=== PATIENT | male | born 1970 | race African-American/Black ===

== ENCOUNTER 2016-09-08 02:41 | Inpatient (IN) | payer OTHER ==
[~2016-09-08] VITALS: Ht 188 cm; Wt 141.1 kg
--- NOTE | ~2016-09-08 | EKG ---
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 : 1970 Requested By: Christy Hall Order Number: [id number] MD: Darinel Ayala Measurements Intervals Gordon Rate: 68 P: 41 DC: 162 QRS: 6 QRSD: 108 T: 115 QT: 437 QTc: 465 Interpretive Statements Sinus rhythm Nonspecific T abnormalities, lateral leads Compared to ECG 10/14/2015 23:19:06 right ventricular conduction delay no longer present nonspecific change in the T wave abnormality Electronically Signed On 09-09-2016 7:51:45 CDT by Darinel Ayala [email or web address] <ELECTRONICALLY SIGNED> By: Darinel Ayala MD, [facility] 09/09/16 0751 [phone] Darinel Ayala MD, [facility] /EPI
--- NOTE | ~2016-09-08 | HC ---
[facility] [place] [address] CONSULTATION Name: COLIN GARZA II Room #: 307-P ADM IN M.R.#: [id number] Admission: 09/08/16 Attend Phys: Marisa Crawley MD Discharge: Date of : 70 Report #: [id number] THIS REPORT FOR: //name// CC: Fer Crawley DATE OF SERVICE: 09/08/2016 REASON FOR CONSULTATION: Chronic kidney disease, hypertension, and volume overload. HISTORY OF PRESENT ILLNESS: This is a 46-year-old male who I have seen previously in the hospital and he has also been seen by a couple of my colleagues. He has longstanding diabetic nephropathy and hypertension, has chronic kidney disease stage 4, gradually progressing to stage 5. He also has hypertension and requires multiple medications. He has been having problems with edema. When I had previously seen him, he also had problems with bladder dysfunction with difficulty emptying his bladder all the way and that was creating some additional problems. He was just in the hospital about 6 weeks ago with some mild pancreatitis that eventually resolved. He continued treatment for his other medical problems including his chronic kidney disease. He tells me he has been taking his medications. He thinks his blood pressure has been high. His lower extremity edema has been worse. His creatinine level on today check is 3.8, which is not far off from his baseline. He says his blood pressure has been up, he began having more problems breathing and overnight had severe dyspnea, wheezing, and what he calls an asthma attack. It also sounds partly like paroxysmal nocturnal dyspnea. He is much better from that standpoint now and is resting comfortably. He remains on some oxygen. In addition, I asked him about his voiding and he has sounds like still some urinary retention and hesitancy. He says he does not remember how long he has been off his Flomax. PAST MEDICAL HISTORY: Longstanding diabetes mellitus and hypertension. This has led to progressive diabetic nephropathy and severe chronic kidney disease. I would note that with this CKD he is scheduled for a placement of a fistula into his left arm for eventual dialysis needs. That is to be done next week. With the diabetes he has peripheral neuropathy, retinopathy and obviously the nephropathy. He has chronic and recurring edema. He has some asthma. He has had a prior cholecystectomy and prior knee surgery. He has also had microdiskectomy on his back. HOME MEDICATIONS: These are not accurately listed, on the computer include losartan 100 mg daily and this is the one that is missing from his report, carvedilol 25 mg b.i.d., clonidine 0.2 mg b.i.d., torsemide 40 mg b.i.d. and this is also different than what is listed, isosorbide mononitrate, MiraLax, oxycodone for pain, gabapentin 300 mg t.i.d., Flexeril 10 mg b.i.d., aspirin [address] [address] CONSULTATION Name: COLIN GARZA II Room #: 307-P [facility] .R.#: [id number] Admission: 09/08/16 Attend Phys: Marisa Crawley MD Discharge: Date of : 70 Report #: [id number] daily, Ventolin inhaler. ALLERGIES: PENICILLIN. FAMILY HISTORY: Negative for any renal disease. SOCIAL HISTORY: The patient lives in [place], [place]. He is . He is medically disabled. REVIEW OF SYSTEMS: He says he has been trying to follow his diet. He is using the DASH not adding any salt in spite of this his edema has been increasing. He had the increasing dyspnea as noted above. No chest pain, although his chest was feeling full, mild cough, no sputum, no fevers or chills. He has had intermittent difficulty voiding urine, feels like he has some retention, still has intermittent abdominal discomfort, but not as severe as it was during his last hospitalization, no diarrhea, no visual or hearing change. PHYSICAL EXAMINATION: GENERAL: This is a very large gentleman, awake, alert and in no acute distress at this time. VITAL SIGNS: Blood pressure on presentation 233/115 down to 182/93 on most recent check, heart rate 67, temperature 97.4, respiratory rate 14. HEENT: Shows pupils are equal and reactive. Sclerae nonicteric. Oral mucosa is negative. NECK: Shows no JVD. CHEST: Shows mildly decreased breath sounds, diffusely. No wheezes or rales. CARDIOVASCULAR: Heart has a regular rate and rhythm. ABDOMEN: Obese, has active bowel sounds, soft, nontender. EXTREMITIES: Show 2+ bilateral lower extremity edema, no upper extremity edema, although it does appear mildly diffusely edematous. LABORATORY DATA: Sodium 134, potassium 4.8, chloride 102, bicarbonate 24, BUN 46, creatinine 3.8, glucose 454, calcium 8.2. White count 11.6, hemoglobin 9.2, hematocrit 28.8, platelets 12,000. ASSESSMENT: 1. Chronic kidney disease stage 4, borderline stage 5. Blood pressure is still not controlled. Volume is still a problem. He has not uremic. He is not on all of his usual medications and we need to get him on those. I had a long discussion with the patient, he seems to understand this. He is asking about dialysis and I have told him that would like to maintain his kidney function as long as possible and avoid dialysis until the time dictates that it is necessary. He is due for fistula placement in his arm next week. We want to get him to that appointment, should allow that in place. Again, he does not need dialysis at this time. 2. Hypertension, not adequately controlled. We need to get him back on his [facility] [address] [place] [address] CONSULTATION Name: COLIN GARZA II Room #: 307-P [facility] ..#: [id number] Admission: 09/08/16 Attend Phys: Marisa Crawley MD Discharge: Date of : 70 Report #: [id number] losartan. He will continue the carvedilol. He also needs more in the way of diuretics. 3. Volume overload with peripheral edema. I will put him on IV Lasix 80 mg q. 6 hours and then tomorrow morning restart his torsemide at 40 mg b.i.d. 4. Urinary retention. We will get him back on some tamsulosin. I will then check a bladder scan to see if he is emptying his bladder fully on a regular basis. 5. Longstanding diabetes mellitus, labile sugars. 6. Recent problems with pancreatitis symptomatically improved. 7. Anemia, mild secondary to his chronic kidney disease. PLAN: 1. Resume his losartan 100 mg daily, continue carvedilol. 2. Convert to IV Lasix q. 6 hours for 3 doses, then put him on his usual dose of oral torsemide 40 mg b.i.d. 3. Tight sodium restriction. 4. Put him back on his tamsulosin for bladder emptying. 5. Bladder scan to make sure he is passing urine adequately and not retaining. 6. Repeat labs in the morning. 7. We will follow along closely in the care of this patient. <ELECTRONICALLY SIGNED> By: Enrique Bateman MD 09/13/16 0726 1234 [id number] Enrique Bateman MD /nt
[~2016-09-08 02:41] MED LIST: ACCUNEB SO1.25 MG/1 INH; ALBUTEROL SOLUTION INH; ALDACTONE25 MG PO; ALDACTONE50 MG PO; ASPIR 8181 MG PO; ASPIRIN81 M2 PO; ATORVASTATIN CA40 MG PO; BIOTIN5 MG PO; BREO ELLIPTA 11 EACH IH; CARVEDILOL12.5 MG PO; CARVEDILOL25 MG PO; CATAPRES0.2 MG PO; CEPHALEXIN 500500 M3 PO; COLACE100 MG PO; COREG25 MG PO; COREG6.25 MG; COZAAR 25 MG TA25 M1; COZAAR100 MG PO; CYCLOBENZAPRINE10 MG PO; CYCLOGYL5 M1 OP; DEMADEX20 MG PO; DEXAMETHASONE 44 M1 PO; FLEXERIL; FLEXERIL PO; FLOMAX0.4 MG PO; GABAPENTIN 100100 MG; GABAPENTIN 100100 MG PO; HUMALOG100 UNIT/1 SUBQ; HYDROCODONE-APA1 TA1; HYTRIN 5 M5 MG/1 CAP PO; IMDUR 30 MG TAB30 M1 PO; IMDUR 60 MG TAB60 M1 PO; LASIX 40 MG TAB40 M2; LEVEMIR SUBQ; LEVEMIR100 UNIT/1 SUBQ; LOPRESSOR 12.12.5 MG PO; LOPRESSOR50 PO; LOSARTAN POTASS25 MG PO; LUTEIN6 MG PO; METHYLPREDNISOLO4 MG; MIRALAX17 GM PO; NEURONTIN 300300 M1 PO; NEURONTIN 300M300 M2 PO; NORVASC5 M1; OMNIPRED5 ML OP; PAXIL10 MG; PERCOCET 10-321 EACH PO; PERCOCET 5-3251 EACH PO; PERCOCET 7.5-31 EACH PO; PRAVACHOL40 MG PO; PROAIR HFA8.5 GM INH; SENNA8.6 M1 PO; SINGULAIR 10 MG10 M1 PO; SYMBICORT160 MCG/4. INH; TORSEMIDE20 MG PO; TORVASTATIN PO; TYLENOL325 MG PO; VALIUM5 MG PO; VENTOLIN HFA 1818 GM INH; ZANTAC 150MG T150 MG PO
[2016-09-08 05:45] VITALS: BP 202/95
[2016-09-08 06:33] LABS: HEMATOCRIT 28.8 % (42.0-52.0); HEMOGLOBIN 9.2 gm/dL (14.0-18.0); MCH 28.7 pg (26.0-34.0); MCHC 31.9 g/dL (28.0-37.0); MCV 89.9 fL (80.0-100.0); RBC 3.21 mil/uL (4.50-6.00); RDW 13.9 % (10.5-14.5); WBC 11.6 thou/uL (4.0-11.0)
[2016-09-08 06:42] LABS: CALCIUM 8.2 mg/dL (8.5-10.1); CREATININE 3.8 mg/dL (0.7-1.3); POTASSIUM 4.8 mmol/L (3.5-5.1)
[2016-09-08 07:48] VITALS: BP 233/115
[2016-09-08 09:35] LABS: NT-PRO BRAIN NAT PEPTIDE 1613 pg/mL (<300)
[2016-09-08 11:15] VITALS: BP 182/93
[2016-09-08 15:45] VITALS: BP 163/77
[2016-09-08 20:00] VITALS: BP 165/91
[2016-09-09 00:06] LABS: GLYCOHEMOGLOBIN (HGB A1C) 8.5 % (4.8-5.6)
[2016-09-09 04:00] VITALS: BP 189/100
[2016-09-09 05:27] LABS: HEMATOCRIT 26.7 % (42.0-52.0); HEMOGLOBIN 8.5 gm/dL (14.0-18.0); MCH 28.6 pg (26.0-34.0); MCHC 31.7 g/dL (28.0-37.0); MCV 90.4 fL (80.0-100.0); PLATELET COUNT 184 thou/uL (150-400); RBC 2.96 mil/uL (4.50-6.00); RDW 14.4 % (10.5-14.5); WBC 18.7 thou/uL (4.0-11.0)
[2016-09-09 05:30] LABS: MANUAL DIFF YES
[2016-09-09 05:41] LABS: ALBUMIN 2.6 g/dL (3.4-5.0); CALCIUM 7.7 mg/dL (8.5-10.1); CREATININE 4.4 mg/dL (0.7-1.3); MAGNESIUM 1.6 mg/dL (1.8-2.4); POTASSIUM 4.6 mmol/L (3.5-5.1); TOTAL BILIRUBIN 0.2 mg/dL (<0.1-1.0); TOTAL PROTEIN 6.7 g/dL (6.4-8.2)
[2016-09-09 07:36] VITALS: BP 180/122
[2016-09-09 07:59] LABS: ABSOLUTE NEUTROPHILS 17.2 thou/uL (1.4-8.2); ANISOCYTOSIS 1+; POLYCHROMASIA OCCASIONAL; TOTAL CELL COUNT 100
[2016-09-09 11:01] LABS: URINE BILIRUBIN NEGATIVE (Negative); URINE BLOOD 2+ (Negative); URINE COLOR YELLOW; URINE GLUCOSE-RANDOM* 1+ (Negative); URINE KETONES NEGATIVE (Negative); URINE LEUKOCYTES-REFLEX NEGATIVE (Negative); URINE PROTEIN (DIPSTICK) 3+ (Negative); URINE UROBILINOGEN 0.2 E.U./dl (0.2-1.0)
[2016-09-09 11:18] LABS: CASTS None Seen /LPF (None Seen); CRYSTALS None Seen /LPF (None Seen); SQUAMOUS None Seen /LPF (0-3); URINE RBC 3-10 Few /HPF (0-2); URINE WBC-REFLEX 0-5 Rare /HPF (0-5)
[2016-09-09 12:11] VITALS: BP 183/87
[2016-09-09 15:23] VITALS: BP 156/81
[2016-09-09 15:56] VITALS: BP 156/81
[2016-09-09 20:00] VITALS: BP 191/101
[2016-09-10] VITALS: BP 145/74
[2016-09-10 04:00] VITALS: BP 185/92
[2016-09-10 05:28] LABS: HEMATOCRIT 27.7 % (42.0-52.0); HEMOGLOBIN 8.8 gm/dL (14.0-18.0); MCH 29.2 pg (26.0-34.0); MCHC 31.9 g/dL (28.0-37.0); MCV 91.6 fL (80.0-100.0); RBC 3.03 mil/uL (4.50-6.00); RDW 14.2 % (10.5-14.5); WBC 11.9 thou/uL (4.0-11.0)
[2016-09-10 05:59] LABS: ALBUMIN 2.5 g/dL (3.4-5.0); CALCIUM 7.6 mg/dL (8.5-10.1); CREATININE 4.6 mg/dL (0.7-1.3); PHOSPHORUS 5.9 mg/dL (2.5-4.9); POTASSIUM 4.3 mmol/L (3.5-5.1)
[2016-09-10 07:26] VITALS: BP 166/80
[2016-09-10 15:48] VITALS: BP 154/70
[2016-09-10 19:50] VITALS: BP 190/97
[2016-09-11 03:55] LABS: ABSOLUTE NEUTROPHILS 4.9 thou/uL (1.4-8.2); BASOPHILS 0.3 % (0.0-2.0); EOSINOPHILS 1.7 % (0.0-3.0); HEMATOCRIT 26.9 % (42.0-52.0); HEMOGLOBIN 8.9 gm/dL (14.0-18.0); LYMPHOCYTES 29.3 % (24.0-44.0); MCH 30.1 pg (26.0-34.0); MCV 91.3 fL (80.0-100.0); MONOCYTES 9.2 % (1.0-8.0); PLATELET COUNT 168 thou/uL (150-400); POLYS 59.5 % (36.0-66.0); RBC 2.94 mil/uL (4.50-6.00); RDW 14.5 % (10.5-14.5); WBC 8.2 thou/uL (4.0-11.0)
[2016-09-11 04:09] LABS: ALBUMIN 2.4 g/dL (3.4-5.0); CALCIUM 7.2 mg/dL (8.5-10.1); PHOSPHORUS 6.3 mg/dL (2.5-4.9); POTASSIUM 4.3 mmol/L (3.5-5.1)
[2016-09-11 04:35] VITALS: BP 168/90
[2016-09-11 05:11] LABS: MANUAL DIFF NO
[2016-09-11 07:26] VITALS: BP 177/81
[2016-09-11 12:25] VITALS: BP 133/70
[2016-09-11 15:23] VITALS: BP 124/60
[2016-09-11 19:24] VITALS: BP 156/85
[2016-09-12 03:41] VITALS: BP 175/56
[2016-09-12 04:55] LABS: ALBUMIN 2.8 g/dL (3.4-5.0); CALCIUM 7.5 mg/dL (8.5-10.1); CREATININE 5.3 mg/dL (0.7-1.3); PHOSPHORUS 5.4 mg/dL (2.5-4.9); POTASSIUM 4.5 mmol/L (3.5-5.1)
[2016-09-12 05:00] VITALS: BP 143/74
[2016-09-12 07:43] VITALS: BP 145/82
[2016-09-12 11:24] VITALS: BP 138/80
[2016-09-12 16:19] VITALS: BP 119/61
[2016-09-12 19:17] VITALS: BP 104/74
[2016-09-13 04:18] VITALS: BP 152/56
[2016-09-13 06:31] LABS: ALBUMIN 2.8 g/dL (3.4-5.0); CALCIUM 7.2 mg/dL (8.5-10.1); CREATININE 5.6 mg/dL (0.7-1.3)
[2016-09-13 06:43] LABS: POTASSIUM 4.9 mmol/L (3.5-5.1)
[2016-09-13 07:45] VITALS: BP 194/118
[2016-09-13] MEDS ORDERED: FLOMAX0.4 MG PO (09:18)
[2016-09-13] MEDS ORDERED: METOLAZONE 5 MG5 MG PO (09:21)
[2016-09-13] MEDS ORDERED: TORSEMIDE20 MG PO (09:23)
[2016-09-13 09:45] VITALS: BP 194/118
[2016-09-13 11:29] VITALS: BP 194/118
== END 2016-09-13 13:00 | disposition home health service (06) | DRG 698 ==
LOC: 3N 02:41
PROVIDERS: Family Medicine; Internal Medicine Nephrology; Nurse Practitioner; Nurse Practitioner Acute Care
DX: E11.21 Type 2 diabetes mellitus with diabetic nephropathy (principal); E43 Unspecified severe protein-calorie malnutrition; I13.2 Hypertensive heart and chronic kidney disease with heart failure and with stage 5 chronic kidney disease, or end stage renal disease; I16.1 Hypertensive emergency; N17.9 Acute kidney failure, unspecified; J45.909 Unspecified asthma, uncomplicated; Z68.39 Body mass index [BMI] 39.0-39.9, adult; I10 Essential (primary) hypertension; E11.42 Type 2 diabetes mellitus with diabetic polyneuropathy; E11.319 Type 2 diabetes mellitus with unspecified diabetic retinopathy without macular edema; D64.9 Anemia, unspecified; G47.33 Obstructive sleep apnea (adult) (pediatric); I25.10 Atherosclerotic heart disease of native coronary artery without angina pectoris; F41.9 Anxiety disorder, unspecified; E78.5 Hyperlipidemia, unspecified; G89.29 Other chronic pain; M54.9 Dorsalgia, unspecified; R33.9 Retention of urine, unspecified; E11.22 Type 2 diabetes mellitus with diabetic chronic kidney disease; I50.9 Heart failure, unspecified; N18.6 End stage renal disease; E87.5 Hyperkalemia; Z96.642 Presence of left artificial hip joint; E87.70 Fluid overload, unspecified; E11.65 Type 2 diabetes mellitus with hyperglycemia; Z79.82 Long term (current) use of aspirin; Z90.49 Acquired absence of other specified parts of digestive tract; Z88.0 Allergy status to penicillin; Z80.9 Family history of malignant neoplasm, unspecified; Z83.3 Family history of diabetes mellitus; Z82.49 Family history of ischemic heart disease and other diseases of the circulatory system; Z79.899 Other long term (current) drug therapy
CPT/HCPCS: 10096

== ENCOUNTER 2017-02-10 04:09 | Inpatient (IN) | payer OTHER ==
--- NOTE | ~2017-02-10 | HC ---
[facility] [place] [address] CONSULTATION Name: GARZACOLINMERNA Raines II Room #: 431-P ADM IN M.R.#: [id number] Admission: 02/10/17 Attend Phys: Mendel Peterson MD Discharge: Date of : 70 Report #: [id number] THIS REPORT FOR: //name// CC: Fer Peterson REASON FOR PRESENTATION: Abdominal pain. INDICATION FOR THE CONSULTATION: CKD. HISTORY OF PRESENT ILLNESS: The patient is well known to me, he is 46-year-old with long-standing diabetes mellitus, hypertension, end-stage renal disease due to the diabetes mellitus and hypertension. He is in the process of being prepared for hemodialysis. He has a left AV fistula. He presented with abdominal pain associated with some nausea. He stated that the abdominal pain started Tuesday night. This was radiating to his back. He saw the nurse practitioner of Dr. Jolly who is his methods analyst and there had been some adjustment of his medications including his diuretics. In terms of renal function as I have stated, he is in the process of being prepared for hemodialysis and he had a recent AV fistula placed on his left upper extremity. He denies any uremic symptoms. I was consulted to manage his CKD. PAST MEDICAL HISTORY: 1. End-stage renal disease. 2. Hyperlipidemia. 3. Diabetes mellitus. 4. Longstanding complications related to his diabetes mellitus and hypertension. 5. Chronic edema. 6. Previous cholecystectomy. 7. Previous microdiscectomy. HOME MEDICATIONS: 1. Tamsulosin. 2. Atorvastatin. 3. Clonidine. 4. Carvedilol. 5. Torsemide. 6. Metolazone. 7. Insulin. FAMILY HISTORY: Very significant for diabetes mellitus and hypertension. REVIEW OF SYSTEMS: GENERAL: No fever or chills. CARDIOVASCULAR: No chest pain or palpitation. PULMONARY: No cough or hemoptysis. [facility] [address] [place] [address] CONSULTATION Name: COLIN GARZA Olu Room #: [address] [place] [address]#: [id number] Admission: 02/10/17 Attend Phys: Mendel Peterson MD Discharge: Date of : 70 Report #: [id number] GASTROINTESTINAL: As per the history of present illness. GENITOURINARY: No frequency, no urgency. MUSCULOSKELETAL: Occasional back pain. SKIN: No rash or ulcerations. PHYSICAL EXAMINATION: GENERAL: The patient is alert, oriented, in no apparent distress. VITAL SIGNS: Blood pressure is 180/101, temperature 36.3, pulse rate 69. HEAD AND NECK: No jugular venous distention, no bruit, no thyromegaly. CHEST: Decreased air entry bilaterally, but no crackles. CARDIOVASCULAR: No rub detected. ABDOMEN: Soft, nontender with no hepatosplenomegaly. LOWER EXTREMITIES: +1 edema. LABORATORY VALUES: Reviewed. White blood cell count 13.6. Sodium was 135, potassium was 4.5. BUN is 90, creatinine is 5.6 and glucose 266. Mildly elevated lipase was noted, 579. Triglyceride was elevated at 524. ASSESSMENT AND IMPRESSION: 1. End-stage renal disease. 2. Diabetes mellitus. 3. Hypertension. 4. Mildly elevated lipase of unknown significance. PLAN: 1. From the renal perspective, the patient is in the process of being prepared for hemodialysis and he has a recent AV fistula placed. Avoid IV fluids at this point given his aggressive blood pressure control. 2. Diuretics. 3. I will review his outpatient medications and place him back on all of the appropriate medications related to his end-stage renal disease. 4. Blood sugar control. 5. Discontinue Neurontin, current dosage is extremely high for the patient with end-stage renal disease. 6. Defer the management of ongoing abdominal pain to the primary team. <ELECTRONICALLY SIGNED> By: Grey Martinez MD 02/13/17 0720 1044 1203 Grey Martinez MD /nt
[2017-02-10 03:33] VITALS: BP 198/92
[~2017-02-10 04:09] MED LIST changes: +METOLAZONE 5 MG5 MG PO
[2017-02-10 05:56] LABS: HEMATOCRIT 31.8 % (42.0-52.0); HEMOGLOBIN 9.9 gm/dL (14.0-18.0); MCH 28.2 pg (26.0-34.0); MCHC 31.1 g/dL (28.0-37.0); MCV 90.8 fL (80.0-100.0); RBC 3.51 mil/uL (4.50-6.00); RDW 17.4 % (10.5-14.5); WBC 13.6 thou/uL (4.0-11.0)
[2017-02-10 06:01] LABS: CREATININE 5.6 mg/dL (0.7-1.3); POTASSIUM 4.5 mmol/L (3.5-5.1)
[2017-02-10 06:07] LABS: ALBUMIN 3.5 g/dL (3.4-5.0); TOTAL BILIRUBIN 0.3 mg/dL (<0.1-1.0); TOTAL PROTEIN 8.1 g/dL (6.4-8.2)
[2017-02-10 06:11] LABS: MAGNESIUM 1.7 mg/dL (1.8-2.4)
[2017-02-10 09:23] VITALS: BP 180/101
[2017-02-10] MEDS ORDERED: PROAIR HFA8.5 GM PO (10:11)
[2017-02-10] MEDS ORDERED: CLARITIN10 MG PO (10:12)
[2017-02-10] MEDS ORDERED: LUTEIN6 MG PO (10:13)
[2017-02-10] MEDS ORDERED: LYRICA 50 MG50 MG PO (10:14)
[2017-02-10] MEDS ORDERED: METOLAZONE 5 MG5 MG PO (10:15)
[2017-02-10] MEDS ORDERED: PERCOCET 10-321 EACH PO (10:16)
[2017-02-10] MEDS ORDERED: PREDNISONE 10 M10 MG PO (10:16)
[2017-02-10] MEDS ORDERED: ONDANSETRON HCL4 M2 PO (10:16)
[2017-02-10] MEDS ORDERED: ZOLOFT50 MG PO (10:17)
[2017-02-10] MEDS ORDERED: LIPITOR10 MG PO (10:18)
[2017-02-10] MEDS ORDERED: BREO ELLIPTA 21 EACH (10:19)
[2017-02-10] MEDS ORDERED: HUMALOG KW200 UNIT/1 SUBQ (10:21)
[2017-02-10] MEDS ORDERED: GLUCAGON EMERGEN1 MG INJECTION (10:24)
[2017-02-10] MEDS ORDERED: EPIPEN0.3 MG/0.1 IM (10:24)
[2017-02-10] MEDS ORDERED: XANAX1 MG PO (10:25)
[2017-02-10] MEDS ORDERED: FLOMAX0.4 MG PO (10:26)
[2017-02-10] MEDS ORDERED: CARVEDILOL6.25 MG PO (10:28)
[2017-02-10] MEDS ORDERED: ISOSORBIDE MONO60 M1 PO (10:29)
[2017-02-10] MEDS ORDERED: ISOSORBIDE MONO10 MG PO (10:29)
[2017-02-10] MEDS ORDERED: LEVEMIR FL100 UNIT/2 SUBQ (10:30)
[2017-02-10 15:25] VITALS: BP 180/88
[2017-02-10 20:30] VITALS: BP 169/104
[2017-02-11 02:11] LABS: GLYCOHEMOGLOBIN (HGB A1C) 8.6 % (4.8-5.6)
[2017-02-11 04:30] VITALS: BP 160/107
[2017-02-11 08:22] VITALS: BP 190/104
[2017-02-11 16:04] VITALS: BP 147/93
[2017-02-11 20:12] VITALS: BP 155/95
[2017-02-11 23:03] VITALS: BP 131/66
[2017-02-12 03:00] VITALS: BP 160/91
[2017-02-12 07:11] LABS: HEMATOCRIT 27.5 % (42.0-52.0); HEMOGLOBIN 9.5 gm/dL (14.0-18.0); MCH 31.2 pg (26.0-34.0); MCHC 34.4 g/dL (28.0-37.0); MCV 90.8 fL (80.0-100.0); RBC 3.03 mil/uL (4.50-6.00); RDW 17.6 % (10.5-14.5); WBC 9.8 thou/uL (4.0-11.0)
[2017-02-12 07:26] LABS: ANION GAP 10 mmol/L (7-16); CHLORIDE 97 mmol/L (98-107); CO2 29 mmol/L (21-32); POTASSIUM 3.8 mmol/L (3.5-5.1); SODIUM 136 mmol/L (136-145)
[2017-02-12 08:10] LABS: BUN 95 mg/dL (7-18); CALCIUM 6.5 mg/dL (8.5-10.1); GLUCOSE 247 mg/dL (74-106); SGOT 14 U/L (15-37)
[2017-02-12 08:11] LABS: ALKALINE PHOSPHATASE 78 U/L (46-116); MAGNESIUM 1.7 mg/dL (1.8-2.4); PHOSPHORUS 6.8 mg/dL (2.5-4.9); SGPT 22 U/L (30-65); TOTAL PROTEIN 6.2 g/dL (6.4-8.2)
[2017-02-12 08:12] LABS: ALBUMIN 3.5 g/dL (3.4-5.0)
[2017-02-12 08:25] LABS: TOTAL BILIRUBIN < 0.1 mg/dL (<0.1-1.0)
[2017-02-12 08:40] VITALS: BP 158/100
[2017-02-12 17:27] VITALS: BP 131/79
[2017-02-12 20:00] VITALS: BP 138/87
[2017-02-13 04:13] VITALS: BP 174/81
[2017-02-13 06:09] LABS: ABSOLUTE NEUTROPHILS 6.2 thou/uL (1.4-8.2); BASOPHILS 0.6 % (0.0-2.0); EOSINOPHILS 3.5 % (0.0-3.0); HEMATOCRIT 27.7 % (42.0-52.0); HEMOGLOBIN 9.2 gm/dL (14.0-18.0); LYMPHOCYTES 22.8 % (24.0-44.0); MCH 29.6 pg (26.0-34.0); MCHC 33.2 g/dL (28.0-37.0); MCV 89.3 fL (80.0-100.0); MONOCYTES 5.7 % (1.0-8.0); PLATELET COUNT 216 thou/uL (150-400); POLYS 67.4 % (36.0-66.0); RDW 17.1 % (10.5-14.5); WBC 9.2 thou/uL (4.0-11.0)
[2017-02-13 06:14] LABS: CALCIUM 6.5 mg/dL (8.5-10.1); CREATININE 6.2 mg/dL (0.7-1.3); MANUAL DIFF NO; POTASSIUM 3.7 mmol/L (3.5-5.1)
[2017-02-13 07:44] VITALS: BP 128/81
[2017-02-13 19:45] VITALS: BP 136/73
[2017-02-14 02:22] VITALS: BP 136/73
[2017-02-14 04:32] VITALS: BP 171/91
[2017-02-14 06:59] LABS: POTASSIUM 4.2 mmol/L (3.5-5.1)
[2017-02-14 07:33] LABS: ALBUMIN 3.1 g/dL (3.4-5.0); CREATININE 6.3 mg/dL (0.7-1.3); PHOSPHORUS 5.9 mg/dL (2.5-4.9)
[2017-02-14 07:42] LABS: CALCIUM 5.5 mg/dL (8.5-10.1)
[2017-02-14 08:00] VITALS: BP 150/92
[2017-02-14] MEDS ORDERED: COZAAR100 MG PO (09:49)
[2017-02-14] MEDS ORDERED: TUMS PO (09:49)
[2017-02-14] MEDS ORDERED: HUMALOG100 UNIT/1 SUBQ (09:55)
[2017-02-14] MEDS ORDERED: DILAUDID 2 MG TA2 MG PO (11:01)
[2017-02-14 11:46] VITALS: BP 150/92
[2017-02-14 16:11] VITALS: BP 128/76
== END 2017-02-14 17:15 | disposition home or self-care (01) | DRG 438 ==
LOC: 4E 04:09 → ENTRNSPT 02-14 16:45 → 4E 02-14 17:15
PROVIDERS: Hospitalist; Internal Medicine Endocrinology, Diabetes & Metabolism; Nurse Practitioner Acute Care; Nurse Practitioner Family
DX: K85.90 Acute pancreatitis without necrosis or infection, unspecified (principal); N18.6 End stage renal disease; I12.0 Hypertensive chronic kidney disease with stage 5 chronic kidney disease or end stage renal disease; E11.22 Type 2 diabetes mellitus with diabetic chronic kidney disease; E78.5 Hyperlipidemia, unspecified; G89.29 Other chronic pain; M54.9 Dorsalgia, unspecified; E11.40 Type 2 diabetes mellitus with diabetic neuropathy, unspecified; J45.909 Unspecified asthma, uncomplicated; K86.1 Other chronic pancreatitis; F41.9 Anxiety disorder, unspecified; E11.51 Type 2 diabetes mellitus with diabetic peripheral angiopathy without gangrene; D64.9 Anemia, unspecified; E66.9 Obesity, unspecified; E11.65 Type 2 diabetes mellitus with hyperglycemia; K59.00 Constipation, unspecified; E83.51 Hypocalcemia; Z90.49 Acquired absence of other specified parts of digestive tract; Z83.3 Family history of diabetes mellitus; Z82.49 Family history of ischemic heart disease and other diseases of the circulatory system; Z88.0 Allergy status to penicillin; Z79.899 Other long term (current) drug therapy; Z80.9 Family history of malignant neoplasm, unspecified; Z79.4 Long term (current) use of insulin
CPT/HCPCS: 10783

== ENCOUNTER 2018-01-03 21:42 | Inpatient (IN) | payer OTHER ==
[~2018-01-03] VITALS: Ht 185.4 cm; Wt 142.4 kg
--- NOTE | ~2018-01-03 | HC ---
[facility] [place] [address] CONSULTATION Name: COLIN GARZA II Room #: 453-P [facility]#: [id number] Admission: 01/03/18 Attend Phys: Filippo Vizcarra MD Discharge: 01/05/18 Date of : 70 Report #: [id number] THIS REPORT FOR: //name// CC: BRAULIO physician/PCP Filippo Vizcarra DATE OF SERVICE: 01/05/2018 REASON FOR CONSULTATION: Evaluation concerning diabetic left foot infection. HISTORY OF PRESENT ILLNESS: The patient is a 47-year-old diabetic with end-stage renal disease, peripheral neuropathy, who has had a toe wound developed over the last 2 weeks. He has been followed by the wound care clinic in [place], [place]. Actually, he had surgical debridement approximately a week ago. Noticed increased pain, swelling and drainage on 01/03/2018, brought in through the Emergency Room. He has had no documented fever. He has had a general cool feeling and some myalgias. Mild anorexia. Blood sugar control has been not very good in the last 2 weeks with sugars up in the 200s. He denies any previous antibiotics before hospitalization. He is now on vancomycin. He notes that his pain is under reasonable control. He had a prior issue with his right second toe, which responded to antibiotic therapy. He dialyzes on a 6-uiw-k-week basis, left AV fistula. Pain, he notes is persistent mostly over the mid toe to metatarsal region. It worsens with movement. Moderate amount of drainage. REVIEW OF SYSTEMS: CONSTITUTIONAL: As above. HEENT: Negative. LYMPH: Negative. PULMONARY: Negative. CARDIOVASCULAR: As above. GASTROINTESTINAL: Negative. GENITOURINARY: As above. NEUROLOGIC: As above. PSYCHIATRIC: With no depression. PAST MEDICAL HISTORY: Asthma, diabetes, end-stage renal disease, chronic back pain, peripheral neuropathy. PAST SURGICAL HISTORY: Cholecystectomy, cataract repair, lumbar surgery, bilateral knee arthroscopic surgery, left upper extremity AV fistula. FAMILY HISTORY: Diabetes. SOCIAL HISTORY: On disability, nonsmoker, no significant alcohol intake. He remains fairly active. He is on the transplant list. [address] [address] CONSULTATION Name: COLIN GARZA Olu Room #: 453-P [facility]#: [id number] Admission: 01/03/18 Attend Phys: Filippo Vizcarra MD Discharge: 01/05/18 Date of : 70 Report #: [id number] ALLERGIES: PENICILLIN, although he does tolerate amoxicillin. MEDICATIONS: As noted on his MAR, now on vancomycin. PHYSICAL EXAMINATION: VITAL SIGNS: Afebrile, hemodynamically stable. 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 EYES: Unremarkable. MOUTH: Unremarkable. NECK: Supple, no thyromegaly, no JVD. LUNGS: Clear. HEART: Regular, without murmur. ABDOMEN: Mild distention with some mild diffuse tenderness. No guarding or rebound. No appreciable masses or hepatosplenomegaly. EXTREMITIES: Left lower extremity with a wound to the medial aspect of his first distal toe. Moderate amount of swelling with drainage. There was some erythema that extended up to the metatarsal region. He had tenderness to palpation. Diminished capillary refill. Pulses in the foot were normal. He had generalized decrease in the sensation to his mid foot. LABORATORY STUDIES: Hemoglobin 10, WBC 9.4, platelet count 165,000. Creatinine 5.3. Hemoglobin A1c 10.8. Urinalysis 3+ protein. Ultrasound of the lower extremity vasculature is pending. MRI scan, no osteomyelitis or abscess. IMPRESSION: 1. A 47-year-old with diabetic neuropathic foot ulcer and infection. I suspect small vessel vascular disease here. He does have palpable pulses. We still need to evaluate for upper arterial obstructive disease. 2. Diabetes with poor control. 3. End-stage renal disease, on dialysis. RECOMMENDATION: We will obtain tissue cultures. We will await wound care evaluation regarding further debridement. We will continue IV antibiotic therapy with vancomycin and ceftazidime. Once stabilized, we should be able to transition this to the outpatient setting pending culture results. Needs better blood glucose control. Continue with 5-qwri-r-week dialysis, offload the area.. <ELECTRONICALLY SIGNED> By: Tong Curiel MD 01/05/184 1241 23 Tong Curiel MD /nt
--- NOTE | ~2018-01-03 | HC ---
[facility] [place] [address] CONSULTATION Name: COLIN GARZA II Room #: 453-P [facility]#: [id number] Admission: 01/03/18 Attend Phys: Filippo Vizcarra MD Discharge: 01/05/18 Date of : 70 Report #: [id number] THIS REPORT FOR: //name// CC: BRAULIO physician/PCP Filippo Vizcarra REASON FOR CONSULTATION: End-stage renal disease. REASON FOR PRESENTATION: Left toe ulcer and bleeding. HISTORY OF PRESENT ILLNESS: The patient is a 47-year-old who is maintained on dialysis every Tuesday, Tuesday and Tuesday. He has end-stage renal disease due to diabetes mellitus. He dialyzes at [facility]. He had some issues with the left great toe ulcer. He visited with [facility] on Tuesday and was informed that he will need to do some further labs. He went home and on Tuesday started to have major bleeding from the left toe ulcer. He went to [facility] and there he was evaluated and was found to have a bleeding significant diabetic foot ulcer and was transferred for our facility to evaluate. He denies any fever or chills. He tells me that this ulcer has been present for the last couple of months. As I stated, he has end-stage renal disease due to diabetes mellitus and is maintained on dialysis. PAST MEDICAL HISTORY: 1. Diabetes mellitus. 2. Hypertension. 3. Peripheral neuropathy. 4. Diabetic foot ulcer. PAST SURGICAL HISTORY: 1. Cataract. 2. AV fistula. 3. Bilateral knee scopes. 4. Lumbar vertebral surgery. ALLERGIES: PENICILLIN. MEDICATIONS: 1. Flexeril. 2. Percocet. 3. Sertraline. 4. Trazodone. 5. Alprazolam. 6. PhosLo. 7. Omeprazole. 8. Insulin. SOCIAL HISTORY: No drug or alcohol abuse. [facility] [address] [place] [address] CONSULTATION Name: COLIN GARZA Olu HOPKINS Room #: 453-[facility]#: [id number] Admission: 01/03/18 Attend Phys: Filippo Vizcarra MD Discharge: 01/05/18 Date of : 70 Report #: [id number] FAMILY HISTORY: Mom has diabetes mellitus. Father has diabetes mellitus. REVIEW OF SYSTEMS: GENERAL: No fever. No chills. CARDIOVASCULAR: No chest pain or palpitation. PULMONARY: No cough or hemoptysis. GASTROINTESTINAL: No nausea or vomiting. GENITOURINARY: No frequency, no urgency. MUSCULOSKELETAL: As per the history of present illness. PHYSICAL EXAMINATION: GENERAL: He is alert, oriented, in no apparent distress. VITAL SIGNS: Blood pressure is 144/81. HEAD AND NECK: No jugular venous distention, no bruit, no thyromegaly. CHEST: Clear to auscultation bilaterally. CARDIOVASCULAR: Regular with no rub detected. ABDOMEN: Soft, nontender with no hepatosplenomegaly. LOWER EXTREMITIES: Dressing applied over the left foot ulcer. LABORATORY DATA: Reviewed. Sodium is 134, potassium is 4.7, chloride is 97, BUN is 55, magnesium is 1.7. Hemoglobin is 10.0. MRI with no evidence of osteomyelitis. ASSESSMENT, IMPRESSION AND PLAN: 1. End-stage renal disease. 2. Diabetes mellitus. 3. Left big toe ulcer. 4. Anemia. 5. Dialysis as usual every Tuesday, Tuesday and Tuesday. 6. Wound care. 7. No evidence of osteomyelitis. 8. We will discuss with the Wound Care how long do they want the patient to be on vancomycin and arrange for that to be given with his hemodialysis. By: 1002 1811 Grey Martinez MD /nt
--- NOTE | ~2018-01-03 | HC ---
[facility] [place] [address] CONSULTATION Name: COLIN GARZA Olu HOPKINS Room #: 453-P [facility]#: [id number] Admission: 01/03/18 Attend Phys: Filippo Vizcarra MD Discharge: 01/05/18 Date of : 70 Report #: [id number] THIS REPORT FOR: //name// CC: BRAULIO physician/PCP Filippo Vizcarra DATE OF SERVICE: 01/04/2018 CHIEF COMPLAINT: Diabetic toe infection. HISTORY OF PRESENT ILLNESS: This is a 47-year-old male patient, with a history of diabetes mellitus, who presented from [place] with ulceration to his left great toe for the last 2 weeks. He has been started on antibiotic therapy. He notes pain and drainage. He has significant neuropathy. He has not had problems with infections in the past. PAST MEDICAL HISTORY: Positive for diabetes mellitus, peripheral neuropathy, chronic back pain, history of asthma, renal failure requiring hemodialysis as well as hypertension. CURRENT MEDICATIONS: Include Zoloft, Xanax, PhosLo, Breo, Lyrica, aspirin, Nephrocaps, Flexeril, omeprazole, Percocet, Desyrel, Levemir, Humalog, Claritin, Zofran. ALLERGIES: PENICILLIN. SOCIAL HISTORY: Negative for alcohol or tobacco use. FAMILY HISTORY: Positive for heart disease, cancer, diabetes. REVIEW OF SYSTEMS: CONSTITUTIONAL: Denies fever, chills, weight loss. NEUROLOGICAL: No focal weakness. Does complain of neuropathic discomfort in his lower extremities. ENT: The patient denies earache, nasal drainage or sore throat. CARDIOVASCULAR: The patient denies chest pain, palpitation or diaphoresis. PULMONARY: The patient denies cough or shortness of breath. GASTROINTESTINAL: The patient denies nausea, vomiting, diarrhea, abdominal pain. ORTHOPEDIC: The patient notes pain and swelling and drainage and ulceration to the left great toe. Other systems in a 14-point review of systems are negative. PHYSICAL EXAMINATION: VITAL SIGNS: At this time include pulse 73, respiratory rate 17, blood pressure 163/86, temperature 98.4. [facility] [address] [place] [address] CONSULTATION Name: COLIN GARZA Room #: 453-P [facility]#: [id number] Admission: 01/03/18 Attend Phys: Filippo Vizcarra MD Discharge: 01/05/18 Date of : 70 Report #: [id number] GENERAL: This is a chronically ill-appearing male patient who appears to be in mental stress. HEENT: Head normocephalic. Nose and throat are clear. NECK: Supple. LUNGS: Clear. HEART: Regular. ABDOMEN: Soft, bowel sounds present. EXTREMITIES: Examination of the lower extremities demonstrates easily palpable distal pulses in the left leg, diminished in the right foot and ankle. He has ulceration and drainage to the distal medial portion of the left great toe. No exposed bony structures noted at this time. NEUROLOGIC: The patient is alert, oriented and appropriate. LABORATORY DATA: Includes sodium 134, potassium is 4.7, CO2 is 26, BUN 55, creatinine 5.3, total protein 6.2, albumin is 3.1. White blood cell count is 9.4 with a hemoglobin of 10.0. CLINICAL IMPRESSION: 1. Diabetic ulceration to the left great toe. 2. Diabetes mellitus with hyperglycemia. 3. End-stage renal disease, requiring hemodialysis. 4. Diabetic foot infection. RECOMMENDATIONS: At this point in time, we will recommend MRI to evaluate for underlying possible osteomyelitis. If present, he will require likely amputation of the toe. We will check arterial Dopplers to verify that he has adequate blood flow for healing. Recommend intravenous antibiotic therapy pending culture results. Aggressive nutritional support for maximizing wound healing and glycemic control. I appreciate being asked to see him in consultation. <ELECTRONICALLY SIGNED> By: Stanley Camejo MD 01/09/18 1311 1042 0217 Stanley Camejo MD /nt
--- NOTE | ~2018-01-03 | H ---
[facility] [place] [address] HISTORY AND PHYSICAL Name: GARZACOLIN II Room #: 453-P ADM IN M.R.#: [id number] Admission: 01/03/18 Attend Phys: Filippo Vizcarra MD Discharge: Date of : 70 Report #: [id number] THIS REPORT FOR: //name// CC: FAM physician/PCP Filippo Vizcarra DATE OF SERVICE: 01/03/2018 ATTENDING PHYSICIAN: Dr. Dixon. PRIMARY CARE PHYSICIAN: Dr. Lindsey. CHIEF COMPLAINT: Left toe ulcer. HISTORY OF PRESENT ILLNESS: The patient is a 47-year-old male patient who is a diabetic and has had a left toe wound for the last 2 weeks. He has been followed by wound clinic in [place], [place]. He just had this wound debrided about 4 days ago. He said he was not having any active drainage until earlier this afternoon when he said he felt a tearing sensation in his toe and then he had a large amount of blood start bleeding from the ulcer. He ended up going to the [place] ER who was able to stop the bleeding. They wanted to admit him there for IV antibiotics, but he decided to go to [facility] ER because he was in the process of switching primary care providers and he wanted to be closer to his new provider. [facility] evaluated him and ended up sending him as a direct admission to [facility] because he has end-stage renal disease and is a dialysis patient and they did not have any nephrology services available at [place]. He has not had further bleeding from the ulcers. He says in the last few days, he has noticed increased swelling of his left great toe into his left forefoot and says the rest of his leg does feel "tight." He has had subjective fevers, as well as chills and generalized body aches. He does have some peripheral neuropathy, but he does report a significant amount of pain in the toe. He denies any initial injury or fracture. He has never noticed any purulent drainage. He has not been on any recent antibiotics for this wound. PAST MEDICAL HISTORY: Asthma, diabetes, end-stage renal disease with hemodialysis on Tuesday, Tuesday, Fridays, chronic back pain, peripheral neuropathy. PAST SURGICAL HISTORY: Cholecystectomy, cataract repairs, lumbar surgery, bilateral knee scopes, left upper extremity AV fistula placement. ALLERGIES: PENICILLIN, unknown reaction. HOME MEDICATIONS: Loratadine 10 mg p.o. daily p.r.n., Flexeril 10 mg t.i.d. p.r.n., aspirin 81 mg daily, Percocet 10/325 one tab q. 6 hours p.r.n., Lyrica 75 mg t.i.d., sertraline 100 mg daily, trazodone 50 mg at bedtime p.r.n., [address] [address] HISTORY AND PHYSICAL Name: COLIN GARZA Olu Room #: 453-P [facility] IN M.R.#: [id number] Admission: 01/03/18 Attend Phys: Filippo Vizcarra MD Discharge: Date of : 70 Report #: [id number] alprazolam 1 mg t.i.d. p.r.n., PhosLo 1334 mg with meals, Breo Ellipta t.i.d. p.r.n., Zofran p.r.n., omeprazole 20 mg daily, Levemir insulin 60 units at bedtime with 54 units q.a.m., Humalog insulin 35 units with meals and Nephrocaps soft gel one capsule daily. SOCIAL HISTORY: The patient lives at home with his daughter. He denies any tobacco, alcohol or drug use. He ambulates independently. FAMILY HISTORY: His mother is alive with diabetes. Father is and he is from diabetic complications, also had heart disease. REVIEW OF SYSTEMS: The patient does have a history of diabetes. He is on large amounts of insulin. He says his blood sugars have been running a little higher than usual with his recent toe wound. Otherwise, they have been controlled. All other 12-point review of systems was reviewed with the patient, otherwise negative unless stated in the HPI. PHYSICAL EXAMINATION: GENERAL: The patient is an alert, obese male in no acute distress. VITAL SIGNS: Temperature 97.8, heart rate 74, respirations 16, blood pressure 178/89, oxygen 94% on room air. HEENT: PERRLA. Sclerae is nonicteric. Oral mucosa is pink and moist. NECK: Supple, no JVD noted. CARDIAC: Normal S1, S2. No murmurs, rubs or gallops. RESPIRATORY: Breath sounds are clear bilaterally. He is diminished in the bases. Breathing is nonlabored. ABDOMEN: Obese, soft, nontender, nondistended with positive bowel sounds. VASCULAR: 1+ bilateral lower extremity edema with 2+ edema in the left foot and great toe. Pedal pulses are 1+ bilaterally. NEUROLOGIC: The patient is alert and oriented x 3. Speech is clear. He is answering questions appropriately and following commands. No focal weakness noted. He does have some decreased sensation in both feet. SKIN: There is a golf ball size open wound on his left great toe, mostly on the medial aspect. There is some dried blood within the wound, but no active bleeding or purulent drainage. There is some surrounding erythema, as well as edema that extends into the rest of the great toe and into the forefoot. He does have some tenderness around the forefoot as well. LABORATORIES AND DIAGNOSTICS: Blood work from [facility] showed a WBC of 8.5, hemoglobin 10.5, platelets 221. Sodium 136, potassium 3.9, BUN 48, creatinine 4.8, glucose 173. LFTs are within normal limits. ESR is 74. CRP 25. Lactate 0.7. It was also reported that the initial x-ray done at [facility] had shown changes consistent with osteomyelitis of the left great toe, but that actual report is not available. ASSESSMENT AND PLAN: [address] [address] HISTORY AND PHYSICAL Name: GARZACOLIN Room #: 453-P [facility] IN [facility]#: [id number] Admission: 01/03/18 Attend Phys: Filippo Vizcarra MD Discharge: Date of : 70 Report #: [id number] 1. Left great toe wound with possible osteomyelitis. We will further evaluate with an MRI of the foot in the morning and consult wound care for possible debridement. Continue vancomycin. 2. End-stage renal disease. He does have hemodialysis due on Mondays, Wednesdays, and Fridays. We will consult nephrology for further dialysis orders. 3. Diabetes type 2. Check hemoglobin A1c. Blood sugar is stable at this time. Continue home doses of Levemir and Humalog insulin with meals and add sliding scale insulin and follow Accu-Cheks. 4. Chronic back pain. Continue home meds. 5. Deep vein thrombosis prophylaxis. Place sequential compression devices. We will continue to follow the patient closely throughout the hospitalization and make changes based on clinical status. <ELECTRONICALLY SIGNED> By: WES Lopez 01/04/18 1708 0626 0658 WES Lopez /nt
[~2018-01-03 21:42] MED LIST changes: +BREO ELLIPTA 21 EACH; +CARVEDILOL6.25 MG PO; +CLARITIN10 MG PO; +DILAUDID 2 MG TA2 MG PO; +EPIPEN0.3 MG/0.1 IM; +GLUCAGON EMERGEN1 MG INJECTION; +HUMALOG KW200 UNIT/1 SUBQ; +ISOSORBIDE MONO10 MG PO; +ISOSORBIDE MONO60 M1 PO; +LEVEMIR FL100 UNIT/2 SUBQ; +LIPITOR10 MG PO; +LYRICA 50 MG50 MG PO; +ONDANSETRON HCL4 M2 PO; +PREDNISONE 10 M10 MG PO; +PROAIR HFA8.5 GM PO; +SERTRALINE HCL50 MG PO; +TUMS PO; +XANAX1 MG PO
[2018-01-03 22:52] VITALS: BP 152/98
[2018-01-04] MEDS ORDERED: PHOSLO667 MG PO (00:31)
[2018-01-04] MEDS ORDERED: BREO ELLIPTA 11 EACH INH (00:32)
[2018-01-04] MEDS ORDERED: LYRICA 75 MG CA75 MG PO (00:32)
[2018-01-04] MEDS ORDERED: NEPHROCAPS SOFT1 CAP PO (00:35)
[2018-01-04] MEDS ORDERED: ASPIR 8181 MG PO (00:35)
[2018-01-04] MEDS ORDERED: OMEPRAZOLE20 M1 PO (00:37)
[2018-01-04] MEDS ORDERED: FLEXERIL PO (00:37)
[2018-01-04] MEDS ORDERED: PERCOCET 10-321 EACH PO (00:38)
[2018-01-04] MEDS ORDERED: TRAZODONE HCL50 MG PO (00:40)
[2018-01-04] MEDS ORDERED: LEVEMIR SUBQ (01:04)
[2018-01-04] MEDS ORDERED: LEVEMIR100 UNIT/1 SUBQ (01:04)
[2018-01-04] MEDS ORDERED: HUMALOG100 UNIT/1 SUBQ (01:05)
[2018-01-04 02:37] VITALS: BP 173/76
[2018-01-04 06:11] LABS: HEMATOCRIT 31.7 % (42.0-52.0); MCH 29.6 pg (26.0-34.0); MCHC 31.7 g/dL (28.0-37.0); MCV 93.5 fL (80.0-100.0); RBC 3.39 mil/uL (4.50-6.00); WBC 9.4 thou/uL (4.0-11.0)
[2018-01-04 06:26] LABS: CALCIUM 7.8 mg/dL (8.5-10.1); CREATININE 5.3 mg/dL (0.7-1.3); MAGNESIUM 1.7 mg/dL (1.8-2.4); POTASSIUM 4.7 mmol/L (3.5-5.1)
[2018-01-04 08:24] VITALS: BP 163/86
[2018-01-04 12:21] LABS: URINE BILIRUBIN NEGATIVE (Negative); URINE BLOOD 1+ (Negative); URINE CLARITY CLEAR; URINE COLOR YELLOW; URINE GLUCOSE-RANDOM* 1+ (Negative); URINE KETONES NEGATIVE (Negative); URINE LEUKOCYTES-REFLEX NEGATIVE (Negative); URINE NITRITE-REFLEX NEGATIVE (Negative); URINE PROTEIN (DIPSTICK) 3+ (Negative); URINE SPECIFIC GRAVITY >= 1.030 (1.005-1.035); URINE UROBILINOGEN 0.2 E.U./dl (0.2-1.0)
[2018-01-04 12:31] LABS: BACTERIA-REFLEX 1-9 Few /HPF (None Seen); CASTS None Seen /LPF (None Seen); CRYSTALS None Seen /LPF (None Seen); SQUAMOUS None Seen /LPF (0-3); URINE RBC 0-2 Rare /HPF (0-2); URINE WBC-REFLEX 0-5 Rare /HPF (0-5)
[2018-01-04 19:13] VITALS: BP 144/86
[2018-01-05 02:08] LABS: GLYCOHEMOGLOBIN (HGB A1C) 10.8 % (4.8-5.6)
[2018-01-05 04:26] VITALS: BP 146/81
[2018-01-05 07:35] VITALS: BP 144/81
[2018-01-05] MEDS ORDERED: KEFLEX500 M1 PO (15:16)
[2018-01-05 15:20] VITALS: BP 153/88
[2018-01-05 15:42] VITALS: BP 144/81
[2018-01-06] MEDS ORDERED: VAN500AD IV (16:43)
== END 2018-01-05 16:27 | disposition home or self-care (01) | DRG 73 ==
LOC: 4W 21:42 → ENTRNSPT 01-05 16:13 → 4W 01-05 16:27
PROVIDERS: Hospitalist; Nurse Practitioner Acute Care
PROC: 5A1D70Z Performance of Urinary Filtration, Intermittent, Less than 6 Hours Per Day (ICD-10-PCS; principal; 2018-01-04)
DX: E11.40 Type 2 diabetes mellitus with diabetic neuropathy, unspecified (principal); N18.6 End stage renal disease; I12.0 Hypertensive chronic kidney disease with stage 5 chronic kidney disease or end stage renal disease; L03.032 Cellulitis of left toe; E11.621 Type 2 diabetes mellitus with foot ulcer; E11.42 Type 2 diabetes mellitus with diabetic polyneuropathy; G89.29 Other chronic pain; M54.9 Dorsalgia, unspecified; J45.909 Unspecified asthma, uncomplicated; E11.65 Type 2 diabetes mellitus with hyperglycemia; E11.22 Type 2 diabetes mellitus with diabetic chronic kidney disease; L97.529 Non-pressure chronic ulcer of other part of left foot with unspecified severity; D64.9 Anemia, unspecified; Z90.49 Acquired absence of other specified parts of digestive tract; Z88.0 Allergy status to penicillin; Z82.49 Family history of ischemic heart disease and other diseases of the circulatory system; Z83.3 Family history of diabetes mellitus; Z98.49 Cataract extraction status, unspecified eye; Z88.1 Allergy status to other antibiotic agents; Z79.82 Long term (current) use of aspirin; Z79.899 Other long term (current) drug therapy
CPT/HCPCS: 10047; 32100

== ENCOUNTER 2018-01-10 15:57 | Inpatient (IN) | payer OTHER ==
[~2018-01-10] VITALS: Ht 185.4 cm; Wt 149.2 kg
--- NOTE | ~2018-01-10 | HC ---
[facility] [place] [address] CONSULTATION Name: GARZACOLINMERNA Raines II Room #: 427-P ADM IN M.R.#: [id number] Admission: 01/10/18 Attend Phys: Elba Burkett MD Discharge: Date of : 70 Report #: [id number] THIS REPORT FOR: //name// CC: BRAULIO physician/PCP Elba Burkett DATE OF SERVICE: 01/10/2018 Nephrology Consultation REASON FOR CONSULTATION: Anasarca. HISTORY OF PRESENT ILLNESS: Poorly compliant dialysis patient, missed a couple of dialysis treatments, came to dialysis yesterday, but had inadequate ultrafiltration and presents today with shortness of breath and swelling. PAST MEDICAL HISTORY: Longstanding end-stage renal disease, progressive on dialysis for about the last year, diabetes mellitus with peripheral neuropathy. He has a left great toe diabetic foot ulcer, which he was hospitalized at this hospital last week, has been treated with Keflex orally and vancomycin IV since discharge. PAST SURGICAL HISTORY: He has a left arm AV fistula as well. HOME MEDICATIONS: Reportedly include clonidine 0.2 mg b.i.d., carvedilol 25 mg b.i.d., torsemide 60 mg b.i.d., losartan 100 mg daily, insulin, PhosLo 2 with meals t.i.d., aspirin 81 mg daily, omeprazole 20 mg daily, and oxycodone. FAMILY HISTORY: Diabetes and hypertension. SOCIAL HISTORY: No cigarettes. REVIEW OF SYSTEMS: GENERAL: He has actually been feeling reasonably well. EYES: His vision is decent. ENT: Hearing okay, swallows okay. ENDOCRINE: Positive for the diabetes. RESPIRATORY: He is getting short winded and getting some orthopnea. CARDIAC: No chest pains or angina. Does have the swelling of the legs all the way up. GASTROINTESTINAL: No nausea, vomiting or diarrhea. GENITOURINARY: No dysuria. NEUROLOGIC: He has had some numbness in his feet. PSYCHIATRIC: Denies depression or anxiety. PHYSICAL EXAMINATION: [facility] [address] [place] [address] CONSULTATION Name: COLIN GARZA Olu Room #: [address] [place] [address] [place] ..#: [id number] Admission: 01/10/18 Attend Phys: Elba Burkett MD Discharge: Date of : 70 Report #: [id number] GENERAL: This is a somewhat chronically ill-appearing gentleman, little bit short winded. SKIN: Unremarkable. SKELETAL: Very obese. HEENT: Extraocular movements are full. Vision intact. No scleral icterus. Hearing intact. Mucous membranes moist. Tongue, buccal mucosa benign. NECK: Supple. CHEST: Shows diminished breath sounds at the bases. HEART: Regular but distant. ABDOMEN: Soft. EXTREMITIES: Show edema all the way up to his waist. LABORATORY DATA: Hemoglobin 9.9. Sodium 136, potassium 4.4, chloride 104, bicarbonate 26, BUN 49, creatinine 4.4. ASSESSMENT: 1. Anasarca. He is massively fluid overloaded. We will do dry ultrafiltration tonight and then dialysis tomorrow. Orders are written and entered. 2. Osteomyelitis of the left great toe, continuing on vancomycin. 3. End-stage renal disease. 4. Diabetes mellitus with peripheral neuropathy. By: [id number] Edwin Jolly MD /nt
--- NOTE | ~2018-01-10 | EKG ---
[address] [place] [address] ELECTROCARDIOGRAM REPORT Name: COLIN GARZA Room #: 427-P ADM IN M.R.#: [id number] Admission: 01/10/18 Attend Phys: Elba Burkett MD Discharge: Date of : 70 Report #: [id number] THIS REPORT FOR: //name// [facility] ED Test Date: 2018-01-10 Test Time: 16:21:10 Pat Name: COLIN GARZA Department: Room: [facility] Gender: M Education Spec: : 1970 Requested By: Rodolfo Phelps Order Number: [id number] MD: Darinel Ayala Measurements Intervals [place] Rate: 78 P: 30 IN: 151 QRS: -7 QRSD: 111 T: 103 QT: 400 QTc: 456 Interpretive Statements Sinus rhythm RSR' in V1 or V2, right VCD Nonspecific T abnormalities, lateral leads Compared to ECG 09/08/2016 09:53:31 RSR' in V1 or V2 now present Electronically Signed On 01-11-2018 8:08:43 CDT by Darinel Ayala [email or web address] <ELECTRONICALLY SIGNED> By: Darinel Ayala MD, [facility] 01/11/18 0808 1621 1621 Darinel Ayala MD, [facility] /EPI
[~2018-01-10 15:57] MED LIST changes: +BREO ELLIPTA 11 EACH INH; +KEFLEX500 M1 PO; +LYRICA 75 MG CA75 MG PO; +NEPHROCAPS SOFT1 CAP PO; +OMEPRAZOLE20 M1 PO; +PHOSLO667 MG PO; +TRAZODONE HCL50 MG PO; +VAN500AD IV
[2018-01-10 16:05] VITALS: BP 198/100
[2018-01-10 16:33] LABS: ABSOLUTE NEUTROPHILS 5.3 thou/uL (1.4-8.2); BASOPHILS 0.8 % (0.0-2.0); EOSINOPHILS 3.5 % (0.0-3.0); HEMATOCRIT 29.5 % (42.0-52.0); HEMOGLOBIN 9.9 gm/dL (14.0-18.0); LYMPHOCYTES 19.8 % (24.0-44.0); MCHC 33.4 g/dL (28.0-37.0); MCV 92.6 fL (80.0-100.0); MONOCYTES 7.6 % (1.0-8.0); PLATELET COUNT 188 thou/uL (150-400); POLYS 68.3 % (36.0-66.0); RBC 3.19 mil/uL (4.50-6.00); WBC 7.8 thou/uL (4.0-11.0)
[2018-01-10 16:42] LABS: CALCIUM 8.3 mg/dL (8.5-10.1); CREATININE 4.4 mg/dL (0.7-1.3); POTASSIUM 4.4 mmol/L (3.5-5.1)
[2018-01-10 16:49] LABS: ALBUMIN 3.1 g/dL (3.4-5.0); TOTAL BILIRUBIN 0.4 mg/dL (<0.1-1.0); TOTAL PROTEIN 7.3 g/dL (6.4-8.2)
[2018-01-10 19:37] VITALS: BP 157/63
[2018-01-10 19:58] VITALS: BP 180/70
[2018-01-11 04:00] VITALS: BP 167/97
[2018-01-11 07:03] VITALS: BP 147/79
[2018-01-11 15:30] VITALS: BP 147/79
== END 2018-01-11 16:01 | disposition home or self-care (01) | DRG 682 ==
LOC: ER 15:57 → EROBS 17:19 → 4E 17:19 → ENTRNSPT 01-11 15:49 → EDTRNSPTSTS 01-11 15:51 → 4E 01-11 16:01
PROVIDERS: Emergency Medicine
PROC: 5A1D70Z Performance of Urinary Filtration, Intermittent, Less than 6 Hours Per Day (ICD-10-PCS; principal; 2018-01-10)
PROC: 5A1D70Z Performance of Urinary Filtration, Intermittent, Less than 6 Hours Per Day (ICD-10-PCS; 2018-01-11)
DX: I12.0 Hypertensive chronic kidney disease with stage 5 chronic kidney disease or end stage renal disease (principal); N18.6 End stage renal disease; M86.8X7 Other osteomyelitis, ankle and foot; E11.22 Type 2 diabetes mellitus with diabetic chronic kidney disease; J45.909 Unspecified asthma, uncomplicated; E11.621 Type 2 diabetes mellitus with foot ulcer; E11.69 Type 2 diabetes mellitus with other specified complication; E11.42 Type 2 diabetes mellitus with diabetic polyneuropathy; L97.529 Non-pressure chronic ulcer of other part of left foot with unspecified severity; Z90.49 Acquired absence of other specified parts of digestive tract; Z79.51 Long term (current) use of inhaled steroids; Z79.4 Long term (current) use of insulin; Z91.15 Patient's noncompliance with renal dialysis; Z79.82 Long term (current) use of aspirin; Z79.899 Other long term (current) drug therapy; Z88.0 Allergy status to penicillin; Z83.3 Family history of diabetes mellitus; Z82.49 Family history of ischemic heart disease and other diseases of the circulatory system; Z80.8 Family history of malignant neoplasm of other organs or systems
CPT/HCPCS: 10183; 32100

== ENCOUNTER 2018-06-03 10:35 | Inpatient (IN) | payer OTHER ==
[~2018-06-03] VITALS: Ht 185.4 cm; Wt 143.7 kg
--- NOTE | ~2018-06-03 | HC ---
[facility] [place] [address] CONSULTATION Name: COLIN GARZA II Room #: 202-P [facility] IN ..#: [id number] Admission: 06/03/18 Attend Phys: Mendel Peterson MD Discharge: 06/07/18 Date of : 70 Report #: [id number] THIS REPORT FOR: //name// CC: Mendel Peterson [facility] DATE OF SERVICE: 06/07/2018 HISTORY OF PRESENT ILLNESS: The patient is a 47-year-old male with history of end-stage renal disease, on hemodialysis, prior back surgery, diabetes mellitus with significant peripheral neuropathy, admitted with bronchitis and uncontrolled hypertension. He has a history of falling approximately 1 week ago hitting his head without loss of consciousness. He had an episode here at the hospital when he had syncope with coughing and was noted to lose consciousness and have bilateral lower extremity weakness. He also has considerable pain of that right lower extremity. He was seen by Neurology. MRI showed fairly severe lumbar spinal stenosis with bilateral lateral recess stenosis and left neural foraminal stenosis. He notes the severe right lower extremity pain is somewhat improved, but is still a significant issue. He has had a functional decline, although he feels he is improving now. He indicated to me that he has been getting up by himself to walk to the bathroom. PAST MEDICAL HISTORY: Include a lumbar diskectomy back in 2014. He has a history of diabetes mellitus with significant peripheral neuropathy, end-stage renal disease, on hemodialysis. He does have a history of persistent asthma. He has a history of chronic back pain, pancreatitis, hypertension and CHF. He has had bilateral knee surgery and cholecystectomy. ALLERGIES: PENICILLIN. SOCIAL HISTORY: No history of tobacco or alcohol abuse. 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 He indicates he wants the bigger walker. They think would be more supportive. REVIEW OF SYSTEMS: Did not offer any current complaints of chest pain, shortness of breath or abdominal discomfort. PHYSICAL EXAMINATION: GENERAL: A 47-year-old male in no obvious distress. VITAL SIGNS: Last recorded temperature 98.4, pulse 91, respirations 18, and blood pressure 187/91. NEUROLOGIC: He is alert and oriented. He does have some evidence of xerophthalmia. He appears to be a reasonable historian. Follows basic commands. Functional range of motion of both upper extremities with good strength at least a grade 4+/5. Functional range of motion of that left lower [address] [address] CONSULTATION Name: GARZACOLIN Room #: 202-P [facility] IN ..#: [id number] Admission: 06/03/18 Attend Phys: Mendel Peterson MD Discharge: 06/07/18 Date of : 70 Report #: [id number] extremity with good strength grade 4/5, right lower extremity tends to favor keeps the hip and knee extended. Strength is probably at least a grade -4. He can dorsiflex the right ankle. IMPRESSION: This is a 47-year-old male with the following problem list: 1. Right lower extremity weakness with right lower extremity radiculopathy. 2. History of cough, syncope with loss of consciousness and bilateral lower extremity weakness with neurology involved. 3. Recent fall one week ago hitting head without loss of consciousness. 4. Diabetes mellitus with premorbid significant peripheral neuropathy. 5. End-stage renal disease, on hemodialysis. 6. Prior lumbar diskectomy 2014. 7. Severe persistent asthma. PLAN: The patient tells me he has been getting up by himself to walk to the bathroom with his walker and wants a more stable larger walker. Physical therapy assess. He thinks he is ready to return back home and his mother is apparently involved with home healthcare and would be able to assist. He also has his younger daughter who was there. We will also have occupational therapy involved. At this point, we would hope that he would be able to return directly home and will need to have therapies assess regarding whether he needs and is a candidate for a larger walker. Thank you for asking us to assist in this patient's care. By: 1131 1643 Sumanth Washington MD /nt
[~2018-06-03 10:35] MED LIST changes: +SENNA-TIME S T1 EACH PO
[2018-06-03 12:12] VITALS: BP 192/96
[2018-06-03 14:13] LABS: ALBUMIN 3.1 g/dL (3.4-5.0); TOTAL PROTEIN 7.3 g/dL (6.4-8.2)
[2018-06-03 14:22] LABS: TROPONIN-I <0.06 ng/mL (<0.06)
[2018-06-03 14:35] LABS: TSH 2.295 uIU/mL (0.358-3.740)
[2018-06-03 16:00] VITALS: BP 192/95
[2018-06-03 19:53] VITALS: BP 170/87
[2018-06-04 00:38] VITALS: BP 174/94
--- NOTE | 2018-06-04 04:38 | NUR ---
PT ALERT AND ORIENTED. PT ELEVATED BP, PRN HYDRALAZINE GIVEN. PT WAS ALSO C/O AN EXCRUCIATING HEADACHE. MANAGEMENT ACCOUNTANT NOTIFIED, MORPHINE AND BUTALBITAL ORDER. PAIN SOME WHAT ALLEVIATED WITH PAIN MEDICATIONS. WILL CONTINUE TO MONITOR PT AND FOLLOWING POC
[2018-06-04 05:59] VITALS: BP 176/81
[2018-06-04 06:49] LABS: HEMATOCRIT 31.9 % (42.0-52.0); HEMOGLOBIN 10.2 gm/dL (14.0-18.0); MCH 29.5 pg (26.0-34.0); MCHC 31.8 g/dL (28.0-37.0); MCV 92.6 fL (80.0-100.0); RBC 3.45 mil/uL (4.50-6.00); RDW 17.3 % (10.5-14.5)
[2018-06-04 06:57] LABS: CALCIUM 8.3 mg/dL (8.5-10.1); CREATININE 6.7 mg/dL (0.7-1.3); MAGNESIUM 1.9 mg/dL (1.8-2.4); POTASSIUM 3.7 mmol/L (3.5-5.1)
[2018-06-04 07:15] VITALS: BP 181/89
[2018-06-04 07:39] LABS: TROPONIN-I <0.06 ng/mL (<0.06)
[2018-06-04 11:40] VITALS: BP 148/73
[2018-06-04 16:02] VITALS: BP 196/93
[2018-06-04 16:44] LABS: HEMATOCRIT 33.1 % (42.0-52.0); HEMOGLOBIN 10.6 gm/dL (14.0-18.0); MCH 29.6 pg (26.0-34.0); MCHC 32.1 g/dL (28.0-37.0); RBC 3.59 mil/uL (4.50-6.00); RDW 17.2 % (10.5-14.5); WBC 9.8 thou/uL (4.0-11.0)
--- NOTE | 2018-06-04 16:45 | NUR ---
BOX CUTTER activated-see flowsheet
[2018-06-04 16:49] LABS: CALCIUM 8.5 mg/dL (8.5-10.1); MAGNESIUM 1.9 mg/dL (1.8-2.4); POTASSIUM 4.7 mmol/L (3.5-5.1)
[2018-06-04 17:30] LABS: BE(vivo) -0.5 mmol/L (-2 to +3); HCO3 23.8 mmol/L (22.0-26.0); PCO2 37.8 mmHg (35.0-45.0); PO2 106.1 mmHg (80.0-100.0); pH 7.417 (7.360-7.450)
--- NOTE | 2018-06-04 20:17 | NUR ---
PATIENT C/O MIGRAINE PAIN AT BEGINNING OF SHIFT, MEDS ADMINISTERED PER ORDERS. PATIENT REPORTED RELIEF FROM MIGRAINE PAIN. REPORTED SOME RIB/CHEST PAIN THROUGH SHIFT WITH PRODUCTIVE COUGH. APPROX 16:05 PATIENT HAD SEVERE COUGHING EPISODE, IN BED SITTING & DOUBLED OVER. WAS NOT RESPONDING TO VERBAL COMMAND, SYMMETRIC LABORED BREATHING OBSERVED & HEART RATE IN 90'S. PATIENT LAID BACK IN BED BY STAFF, BEGAN RESPONDING TO STAFF BUT VERY DROWSY. RAPID RESPONSE CALLED & PROVIDER NOTIFIED. ORDERS PLACED & CARRIED OUT. PATIENT REPORTED NOT BEING ABLE TO MOVE LEGS, UNABLE TO ASSIST WITH TRANSFER TO & FROM BED AT THAT TIME. NEURO CONSULTED. PATIENT TAKEN FOR CT. PATIENT ABLE TO REST WHEN BACK IN ROOM. PATIENT EXPERIENCED ANOTHER COUGHING EPISODE WITH SEVER PAIN REPORTED. PROVIDER AT BEDSIDE TO OBSERVE. MEDS GIVEN PER ORDERS. PATIENT ABLE TO REST FOR REMAINDER OF SHIFT. VERY DROWSY BUT WILL AROUSE TO ANSWER QUESTIONS. FALL PRECAUTIONS IN PLACE & FAMILY AT BEDSIDE.
[2018-06-04 21:25] VITALS: BP 157/85
--- NOTE | 2018-06-04 22:24 | EKG ---
[address] [address] ELECTROCARDIOGRAM REPORT Name: COLIN GARZA II Room #: 202- ADM IN M.R.#: [id number] Admission: 06/03/18 Attend Phys: Mendel Peterson MD Discharge: Date of : 70 Report #: [id number] THIS REPORT FOR: //name// [facility] Test Date: 2018-06-04 Test Time: 16:19:38 Pat Name: COLIN GARZA Department: Room: 202 P Gender: M Sports Manager: khari : 1970 Requested By: Mendel Peterson Order Number: [id number] MD: Eliel Alfaro Measurements Intervals [place] Rate: 101 P: 62 MT: 168 QRS: 4 QRSD: 109 T: 77 QT: 366 QTc: 475 Interpretive Statements Sinus tachycardia Baseline wander in lead(s) V1,V2,V3 Compared to ECG 01/10/2018 16:21:10 Sinus rhythm no longer present T-wave abnormality no longer present Electronically Signed On 06-04-2018 22:24:06 BIOLOGICS SPECIALIST by Eliel Alfaro [email or web address] <ELECTRONICALLY SIGNED> By: Eliel Alfaro MD 06/04/18 2224 1619 Eliel Alfaro MD /EPI
--- NOTE | 2018-06-04 22:24 | EKG ---
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 : 1970 Requested By: Mendel Peterson Order Number: [id number] MD: Eliel Alfaro Measurements Intervals [place] Rate: 104 P: 64 SD: 149 QRS: -20 QRSD: 112 T: 82 QT: 342 QTc: 450 Interpretive Statements Sinus tachycardia Borderline intraventricular conduction delay Compared to ECG 01/10/2018 16:21:10 Sinus rhythm no longer present T-wave abnormality no longer present Electronically Signed On 06-04-2018 22:24:33 SAFETY ADVISOR by Eliel Alfaro [email or web address] <ELECTRONICALLY SIGNED> By: Eliel Alfaro MD 06/04/18 2224 1740 1740 Eliel Alfaro MD /EPI
--- NOTE | 2018-06-04 23:08 | NUR ---
FARNAZ (10 YR OLD) FOUND IN ROOM ALONE WITH PATIENT. DISCOVERED THAT THIS IS PATIENT'S DAUGHTER. NO OTHER ADULT IN THE ROOM FOR SUPERVISION OF MINOR. CALL PLACED TO MANAGER DRUG TO INFORM OF SITUATION. CALL PLACED TO MOTHER OF PATIENT, PILI, INFORMING HER THAT CHILD IS NOT ALLOWED TO STAY IN THE ROOM WITH PATIENT WITHOUT SUPERVISION. PILI VERY UPSET, STATED THAT SHE LIVES AN HOUR AWAY IN [place]. I TOLD HER THAT I WOULD TURN THE ISSUE OVER TO THE MANAGER DRUG FOR HER TO TAKE CARE OF. SHE BECAME UPSET AND SAID NOT TO REMOVE THE CHILD FROM THE HOSPITAL AND YELLED THAT SHE WOULD RETURN FOR FARNAZ. MANAGER DRUG UPDATED.
[2018-06-05 03:19] VITALS: BP 148/64
[2018-06-05 03:30] LABS: HEMATOCRIT 32.4 % (42.0-52.0); HEMOGLOBIN 10.1 gm/dL (14.0-18.0); MCH 28.9 pg (26.0-34.0); MCHC 31.2 g/dL (28.0-37.0); MCV 92.4 fL (80.0-100.0); RBC 3.51 mil/uL (4.50-6.00); RDW 17.4 % (10.5-14.5); WBC 12.1 thou/uL (4.0-11.0)
[2018-06-05 03:40] LABS: CALCIUM 8.3 mg/dL (8.5-10.1); MAGNESIUM 2.1 mg/dL (1.8-2.4)
[2018-06-05 03:42] LABS: CREATININE 9.2 mg/dL (0.7-1.3); POTASSIUM 6.4 mmol/L (3.5-5.1)
--- NOTE | 2018-06-05 05:39 | NUR ---
patient received drowsy but responsive, ORIENTED TO ALL SPHERES. COMPLAINT OF WEAKNESSS ON BILATERAL LEGS, BURNING SENSATION WHEN PATIENT WAS TRANSFERRED FROM BED TO STRETCHER. PATIENT BROUGHT TO MRI FOR THE MRI OF LUMBAR SPINE AND XRAY OF HIP, DONE. DR THOMPSON CALLED AND RELAYED THAT SHE SAW THE MRI AND SAID THAT THERE WAS A VERY SEVERE STENOSIS ON THE LUMBAR SPINE AND DR WILL SEE PATIENT IN THE MORNING. COMPLAINT OF CONSTANT BURNING PAIN ON THE BACK GOING DOWN TO BILATERAL LOWER EXTREMITIES. PRN MEDS FOR PAIN GIVEN WHICH AFFORDED PARTIAL RELIEF. STILL FOR SPUTUM /BRONCH AND STILL TO SEND URINE SAMPLE PER ORDER. 0358>CRITICAL RESULT K AND CREA RLEAYED TO FUAD CHU WITH ORDERS GIVEN AND CARRIED OUT. FF UP POC.
--- NOTE | 2018-06-05 11:21 | HC ---
[facility] [place] [address] CONSULTATION Name: COLIN GARZA II Room #: 202-P ADM IN M.R.#: [id number] Admission: 06/03/18 Attend Phys: Mendel Peterson MD Discharge: Date of : 70 Report #: [id number] THIS REPORT FOR: //name// CC: Mendel Peterson [facility] DATE OF SERVICE: 06/03/2018 NEPHROLOGY CONSULTATION REASON FOR CONSULTATION: End-stage renal disease. HISTORY OF PRESENT ILLNESS: The patient is quite well known to our service, on chronic dialysis, dialyzes at the [facility]. He has longstanding diabetes mellitus with triopathy and end-stage renal disease, dialyzing with a left AV fistula. The patient developed cough, hoarseness and shortness of breath. He came to the Emergency Room at [facility] and was transferred to this hospital for admission. Extensive workup with CT of the chest with IV contrast revealed no infiltrates or evidence of pulmonary emboli. PAST MEDICAL HISTORY: Longstanding diabetes mellitus, notable for extremely poor compliance, particularly with fluid and volume related to his dialysis and extremely large and frequent weight gains, occasionally missing dialysis as well complicated by hypertension and volume overload. He has had previous left great toe diabetic foot ulcer as well as the diabetes and hypertension. HOME MEDICATIONS: As listed include Xanax 1 mg p.r.n., aspirin 81 mg daily, Nephrocaps 1 daily, PhosLo 2 with meals t.i.d., insulin, Breo Ellipta, omeprazole 20 mg daily, Lyrica 75 mg t.i.d., Zoloft 50 mg daily, trazodone 50 mg daily. FAMILY HISTORY: Positive for diabetes and hypertension. SOCIAL HISTORY: Negative for cigarettes. REVIEW OF SYSTEMS: GENERAL: He has had the URI symptoms, otherwise, has been okay. EYES: His vision is not too bad. ENT: Hearing okay. No mouth sores. ENDOCRINE: Positive for diabetes. RESPIRATORY: A little bit of exertional dyspnea, which is chronic. CARDIAC: No chest pains or angina. Leg swelling is actually a bit better. GASTROINTESTINAL: No nausea, vomiting or diarrhea. GENITOURINARY: No dysuria. [address] [place] [address] CONSULTATION Name: COLIN GARZA Room #: 202-P [facility] IN [facility].#: [id number] Admission: 06/03/18 Attend Phys: Mendel Peterson MD Discharge: Date of : 70 Report #: [id number] NEUROLOGIC: Chronic numbness in the feet. PSYCHIATRIC: Occasionally gets somewhat depressed. PHYSICAL EXAMINATION: VITAL SIGNS: Reasonably well-appearing, overweight gentleman, in no acute distress. SKIN: Unremarkable. SKELETAL: Obesity. HEENT: Extraocular movements full. Vision intact. No scleral icterus. Hearing intact. Mucous membranes are moist. NECK: Supple without JVD. CHEST: Clear. HEART: Regular. ABDOMEN: Soft. EXTREMITIES: Show no pitting edema. LABORATORY DATA: Hemoglobin is 10.2, white count 7.0. Sodium 134, potassium 3.7, chloride 95, bicarbonate 28, creatinine 6.7, BUN 40. ASSESSMENT AND PLAN: 1. Upper respiratory infection, appears to have a upper respiratory tract infection, which is symptomatic. 2. End-stage renal disease, due for dialysis tomorrow. 3. Hypertension, a little bit out of control. We will need to re-add amlodipine. 4. Poor compliance. <ELECTRONICALLY SIGNED> By: Edwin Jolly MD 06/05/18 1121 0830 2352 Edwin Jolly MD /nt
[2018-06-05 16:00] VITALS: BP 186/92
[2018-06-05 20:00] VITALS: BP 159/78
--- NOTE | 2018-06-06 03:13 | NUR ---
RECEIVED SITTING ON THE CHAIR, AOX4. SR ON THE MONITOR. CLEAR TO DIMINISHED LUNGS SOUNDS ON ROOM AIR. PATIENT HOOKED TO CPAP AND 02 SATS MONITORING WHEN ASLEPT. COMPLAINT OF PAIN FROM THR RIGHT RIBS GOING DOWN TO THE WAISTLINE TO BILATERAL LEGS DESCRIBES CONSTANT, STABBING, BURNING PAIN 10/10. PRN PAIN MEDS GIVEN. PATIENT GOAL WAS TO DECREASE PAIN TO 5/10. PAIN REASSESMENT DONE, PAIN WENT DOWN TO 5/10, GOAL ACHEIVED. PATIENT VERBALIZED IF HE CAN BE REFERRED BACK TO HIS PREVIOUS SURGEON, DR HENRY. WILL RELAY DURING THE HAND OFF REPORT. FF UP POC.
[2018-06-06 04:30] VITALS: BP 143/63
[2018-06-06 06:24] LABS: HEMATOCRIT 31.5 % (42.0-52.0); HEMOGLOBIN 9.9 gm/dL (14.0-18.0); MCH 28.6 pg (26.0-34.0); MCHC 31.5 g/dL (28.0-37.0); MCV 90.8 fL (80.0-100.0); RBC 3.47 mil/uL (4.50-6.00); RDW 17.6 % (10.5-14.5); WBC 13.8 thou/uL (4.0-11.0)
[2018-06-06 06:47] LABS: ALBUMIN 3.3 g/dL (3.4-5.0); CALCIUM 7.8 mg/dL (8.5-10.1); PHOSPHORUS 6.7 mg/dL (2.5-4.9)
[2018-06-06 08:00] VITALS: BP 148/54
[2018-06-06] MEDS ORDERED: LEVAQUIN 500 M500 M5 PO (12:30)
[2018-06-06] MEDS ORDERED: PERCOCET 10-321 EACH PO (12:30)
[2018-06-06] MEDS ORDERED: AMLODIPINE BESY10 MG PO (12:30)
[2018-06-06 13:07] VITALS: BP 148/54
[2018-06-06 15:04] VITALS: BP 244/118
[2018-06-06 16:25] VITALS: BP 154/98
--- NOTE | 2018-06-06 17:55 | NUR ---
PT STATUS - PT WAS TO BE DISCHARGED TODAY AND FOLLOW UP WITH PCP/NEURO SX BUT WAS FOUND TO BE HYPERTENSIVE AFTER DIALYSIS 244/118. DR KRISHNAMURTHY NOTIFIED AND DC CANCELLED. HYDRALAZINE 10MG IV GIVEN AND FOLLOW UP BP 158 SYS. CUFF SIZE WITH DIALYSIS MAY HAVE BEEN A FACTOR BUT BELIEVE HE WAS STILL HYPERTENSIVE POST DIALYSIS. NEXT DIALYSIS, MAY NEED TO COMPARE OUR READINGS VS DIALYSIS. WILL MONITOR.
[2018-06-06 20:15] VITALS: BP 144/49
--- NOTE | 2018-06-07 02:36 | NUR ---
ASSUMED PT CARE AT 1900. PT A/OX4, VITAL SIGNS STABLE WITH BP SLIGHTLY ELEVATED (140'S). NO COMPLAINTS OF CHEST PAIN. COMPLAINED OF SOME LE PAIN/STIFFNESS/NEUROPATHY. PAIN MANAGED ADEQUATELY WITH MEDICATION. PT RESTED WELL THROUGH THE NIGHT. ON 2L OF O2 WHEN AWAKE AND CPAP HS. PROGRESSING TOWARD PLAN OF CARE. WILL CONTINUE TO MONITOR. POSSIBLE DISCHARGE IN AM.
[2018-06-07 04:08] LABS: ALBUMIN 3.3 g/dL (3.4-5.0); CALCIUM 8.2 mg/dL (8.5-10.1); PHOSPHORUS 7.3 mg/dL (2.5-4.9)
[2018-06-07 04:14] LABS: CREATININE 6.7 mg/dL (0.7-1.3)
[2018-06-07 04:27] LABS: HEMATOCRIT 31.8 % (42.0-52.0); MCH 29.1 pg (26.0-34.0); MCHC 31.6 g/dL (28.0-37.0); MCV 92.3 fL (80.0-100.0); RBC 3.44 mil/uL (4.50-6.00); RDW 18.2 % (10.5-14.5); WBC 13.8 thou/uL (4.0-11.0)
[2018-06-07 04:37] VITALS: BP 152/59
[2018-06-07 07:47] VITALS: BP 187/91
--- NOTE | 2018-06-07 10:48 | NUR ---
pt care assumed at 0700. assessment completed, see charting. pt still having cough, states he is coughing up some blood tinged sputum as well as green/yellow thick sputum, pt cough very forceful. pt placed on room air by RT, SpO2 checked after a while being off oxygen and 95%.
[2018-06-07 11:36] VITALS: BP 183/97
[2018-06-07 13:36] VITALS: BP 183/97
--- NOTE | 2018-06-07 13:53 | HC ---
[facility] [place] [address] CONSULTATION Name: GARZACOLIN II Room #: 202-P ADM IN M.R.#: [id number] Admission: 06/03/18 Attend Phys: Mendel Peterson MD Discharge: Date of : 70 Report #: [id number] THIS REPORT FOR: //name// CC: [facility] HISTORY OF PRESENT ILLNESS: The patient is a 47-year-old male who this afternoon began to cough and when he began to cough, he lost consciousness. The patient had been coughing up clots of blood. After he woke up, he was shaking and was having a hard time moving his extremities, especially his legs. A CT scan of the head was unremarkable. CTA of the chest was unremarkable. Labs are unremarkable. I was asked to see the patient emergently because of his lower extremity weakness. Prior to examining the patient, he had been given Dilaudid and is now drowsy. The patient tells me he has a history of low back pain 3 or 4 years ago. He had surgery here by Dr. Pascual. According to the patient, he was told that he would need 2 more surgeries to make his back right. After the first surgery, he did not get any pain relief. Earlier today, the patient had been up and walking in the solo. Now, the patient is sitting in bed with his eyes closed and can barely move his legs. When he tries to move them, he has pain in his hips. PAST MEDICAL HISTORY: End-stage renal disease, diabetes, hypertension, gastroesophageal reflux, insomnia, anxiety and depression, pancreatitis, chronic back pain, congestive heart failure. PAST SURGICAL HISTORY: Lumbar spine surgery, bilateral knee surgery, cholecystectomy, left arm fistula. MEDICATIONS IN THE HOSPITAL: Include albuterol nebulizer, aspirin 81 mg daily, Fioricet p.r.n. with the last dose received this morning at 9:00 a.m. for headache, fluticasone t.i.d., guaifenesin 1200 mg b.i.d., hydralazine p.r.n., hydromorphone 0.5 mg p.r.n. with the last dose received at 03:15. 60 units Lantus at bedtime, Humalog 35 units received prior to meals, levofloxacin every 2 hours, methylprednisolone 62.5 mg b.i.d., Norvasc 10 mg daily, Tamiflu 30 mg daily, oxycodone 10 mg q.6 hours with the last dose received yesterday at approximately 10:00 p.m. Since admission to the hospital, he has only received 2 tablets yesterday, but none today. Lyrica 75 mg t.i.d., senna 1 tablet b.i.d., sertraline 100 mg daily, Xanax p.r.n. anxiety. ALLERGIES: PENICILLIN. PHYSICAL EXAMINATION: VITAL SIGNS: Blood pressure 213/80, temperature 36.8, pulse rate 95, respiratory rate 16. Bedside pulse oximetry 89% on oxygen, but the rate is not [address] [address] CONSULTATION Name: GARZACOLIN II Room #: 202-P [facility].#: [id number] Admission: 06/03/18 Attend Phys: Mendel Peterson MD Discharge: Date of : 70 Report #: [id number] documented in the chart. NEUROLOGIC: When I examined the patient, he kept his eyes closed and tilted his head back and was slow to answer questions. Cranial nerves 2-12 appeared grossly intact. He is able to move the upper extremities, but has bilateral shoulder pain. He was able to move his lower extremities proximally, but complained of severe hip pain. He was not able to wiggle his toes. Reflexes are absent. Plantar responses are mute. Coordination was not tested. The patient does not have a sensory level. He does have diminished light touch and proprioception in the lower extremities secondary to diabetic neuropathy. LABORATORY DATA: White blood cell count 9.8, hemoglobin 10.6, hematocrit 33.1, MCV 92, platelet count 230,000. Blood gas: pH 7.417, pCO2 of 37.8, pO2 of 106, oxygen saturation 96.8%. Chemistry: Sodium 129, potassium 4.7, chloride 92, carbon dioxide 24, BUN 47, creatinine 8, glucose 289, calcium 8.5, magnesium 1.9. Creatinine kinase 1089. B12 522. Procalcitonin 1.01. TSH 2.295. IMAGING: CT scan of the head is unremarkable. CTA of the chest is unremarkable. IMPRESSION: I have ordered a stat MRI of the lumbar spine to rule out acute spinal cord compression. I have also ordered an electroencephalogram for tomorrow morning. However, the episode of coughing and then altered consciousness is most consistent with cough syncope. I realized this patient has pain; however, I would be very careful about administering narcotics because of the potential of altered mentation. As of Tuesday, Dr. Dubois or Dr. Holguin will be following the patient. I thank you for your kind referral of this patient. <ELECTRONICALLY SIGNED> By: Judie Kirk DO 06/07/18 1353 [id number] 1719 Judie Kirk DO /artur
--- NOTE | 2018-06-07 14:04 | NUR ---
DISCHARGE INFO GIVEN TO PT, PRESCRIPTIONS WERE GIVEN TO PT YESTERDAY IN ANTICIPATION OF DISCHARGE. PIV X 2 DISCONTINUED, AUTO TRAVEL COUNSELOR REMOVED. HOME MEDICATION SENT WITH PT. ALL QUESTIONS ANSWERED.
[2018-06-07 15:11] LABS: ADENOVIRUS Negative (Negative); INFLUENZA A Negative (Negative); INFLUENZA B Negative (Negative); METAPNEUMOVIRUS Negative (Negative); PARAINFLUENZA 1 Negative (Negative); PARAINFLUENZA 2 Negative (Negative); PARAINFLUENZA 3 Negative (Negative); RSV A Negative (Negative); RSV B Negative (Negative)
--- NOTE | 2018-06-08 09:42 | EEG ---
[facility] [place] [address] ELECTROENCEPHALOGRAM Name: COLIN GARZA Room #: 202-P [facility] IN M.R.#: [id number] Admission: 06/03/18 Attend Phys: Mendel Peterson MD Discharge: 06/07/18 Date of : 70 Report #: [id number] THIS REPORT FOR: //name// CC: Mendel Peterson [facility] DATE OF SERVICE: 06/04/2018 This patient is being evaluated for altered mental status as well as question of seizure. EEG was done by placing the electrode by standard 10-20 system of electrode placement. Both referential and sequential montages were used for recording. Background activity in this patient's EEG is about 10 Hz and 30 microvolt. The patient became drowsy and that is associated with bilateral slowing and vertex sharp waves. Photic stimulation is unremarkable. Throughout the record, no active epileptiform activity was noticed. IMPRESSION: This patient's EEG is within normal limits. No active epileptiform activity was noticed during this record. Thank you very much for this referral. <ELECTRONICALLY SIGNED> By: Nick Dubois MD 06/08/18 0942 1553 1918 Nick Dubois MD /nt
[2018-06-09 03:09] LABS: RHINOVIRUS Negative (Negative)
== END 2018-06-07 14:25 | disposition home or self-care (01) | DRG 871 ==
LOC: 2N 10:35 → ENTRNSPT 06-07 14:03 → EDTRNSPTSTS 06-07 14:16 → 2N 06-07 14:25
PROVIDERS: Internal Medicine Nephrology; ADMIT Internal Medicine
PROC: 5A1D70Z Performance of Urinary Filtration, Intermittent, Less than 6 Hours Per Day (ICD-10-PCS; principal; 2018-06-05)
PROC: 5A1D70Z Performance of Urinary Filtration, Intermittent, Less than 6 Hours Per Day (ICD-10-PCS; 2018-06-06)
PROC: 5A09357 Assistance with Respiratory Ventilation, Less than 24 Consecutive Hours, Continuous Positive Airway Pressure (ICD-10-PCS; 2018-06-07)
DX: A41.9 Sepsis, unspecified organism (principal); N18.6 End stage renal disease; I13.0 Hypertensive heart and chronic kidney disease with heart failure and stage 1 through stage 4 chronic kidney disease, or unspecified chronic kidney disease; R04.2 Hemoptysis; J20.8 Acute bronchitis due to other specified organisms; K21.9 Gastro-esophageal reflux disease without esophagitis; G89.29 Other chronic pain; K59.09 Other constipation; E11.42 Type 2 diabetes mellitus with diabetic polyneuropathy; M48.061 Spinal stenosis, lumbar region without neurogenic claudication; R55 Syncope and collapse; I50.9 Heart failure, unspecified; J45.50 Severe persistent asthma, uncomplicated; E87.5 Hyperkalemia; E11.319 Type 2 diabetes mellitus with unspecified diabetic retinopathy without macular edema; E11.22 Type 2 diabetes mellitus with diabetic chronic kidney disease; M54.10 Radiculopathy, site unspecified; M54.9 Dorsalgia, unspecified; F41.1 Generalized anxiety disorder; E11.65 Type 2 diabetes mellitus with hyperglycemia; F32.9 Major depressive disorder, single episode, unspecified; Z91.19 Patient's noncompliance with other medical treatment and regimen; Z79.82 Long term (current) use of aspirin; Z79.899 Other long term (current) drug therapy; Z82.49 Family history of ischemic heart disease and other diseases of the circulatory system; Z99.2 Dependence on renal dialysis; Z90.49 Acquired absence of other specified parts of digestive tract; Z88.0 Allergy status to penicillin
CPT/HCPCS: 10081; 32100

== ENCOUNTER 2018-09-26 19:51 | Inpatient (IN) | payer OTHER ==
[~2018-09-26] VITALS: Ht 185.4 cm; Wt 135.3 kg
[~2018-09-26 19:51] MED LIST changes: +AMLODIPINE BESY10 MG PO; +LEVAQUIN 500 M500 M5 PO
[2018-09-26 21:20] VITALS: BP 152/87
[2018-09-27 03:43] VITALS: BP 131/59
[2018-09-27 05:47] LABS: HEMATOCRIT 26.5 % (42.0-52.0); HEMOGLOBIN 8.1 gm/dL (14.0-18.0); MCH 27.7 pg (26.0-34.0); MCHC 30.7 g/dL (28.0-37.0); MCV 90.1 fL (80.0-100.0); RBC 2.94 mil/uL (4.50-6.00); RDW 19.6 % (10.5-14.5); WBC 16.7 thou/uL (4.0-11.0)
[2018-09-27 05:58] LABS: CALCIUM 8.4 mg/dL (8.5-10.1); CREATININE 16.2 mg/dL (0.7-1.3)
[2018-09-27 06:02] LABS: POTASSIUM 5.2 mmol/L (3.5-5.1)
[2018-09-27 07:30] VITALS: BP 168/73
--- NOTE | 2018-09-27 07:39 | NUR ---
Received pt direct admit from [facility]. Upon arrival pt was hard to arouse when trying to do assessment but is doing much better. A0X4. On room air. No skin issues. Has a right upper arm fistula. Received dialysis on Tuesday. Dr West consulted. Has L FA IV saline lock. Has chronic back pain. Requested to get morphine. VSS. Call light within reach. No identified needs at the moment. Will continue to monitor.
--- NOTE | 2018-09-27 11:57 | NUR ---
PT ADMITTED RELATED TO UROSEPSIS. CM MET WITH PT AT BEDSIDE THIS DAY. PT IS A&O X4. CM ROLE INTRODUCED. PT INDICATED HE LIVES IN A HOUSE WITH HIS 10YR OLD DTR. PT INDICATED THERE ARE 2 STEPS TO ENTER THE FRONT OF THE HOUSE ROSALIND RAMP TO ENTER IN THE BACK. 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 PT INDICATED HE GOES TO DIALYS[facility] 8:00 CHAIR TIME. PT'S PCP IS DR. CHENG. PT INDICATED HE HAS TRANSFER AGENT SERVICES THROUGH [employer] WEARING APPAREL ASSEMBLER. PT INDICATED HE PLANS TO RETURN HOME ONCE MEDICALLY STABLE. CM TO FOLLOW INDICATED WITH DC PLANNING.
--- NOTE | 2018-09-27 12:12 | NUR ---
Assess due to high BMI 40.4=extreme class III obesity, and pt with chronic need dialysis admitted with urosepsis. Multiple past admissions with diet education provided in past which pt shows little interest. visit this am during dialysis, was drowsy but able to state not eating much past several days. Wts variable 306-320 > than 1 yr. Will add Nepro 1x daily until usual intake/appetite resume. Low nutrition risk
--- NOTE | 2018-09-27 12:34 | NUR ---
met with patient who resides at home with in independent home. He uses no assistive device. he uses no oxygen but currently rec in hospital. He reports stairs to basement and bedroom no railing going to basement. Patient notes SOA with steps and hopes better post procedure of ICD. He reports drives short distances. does most cleaning and cooking. Patient reports PCP Dr Hall not accurate he does not see her and has not for some time. He sees Dr Joiner as needed his web services manager. Casemgt following for dc planning.
--- NOTE | 2018-09-27 13:26 | NUR ---
Met with patient and family at bedside. [employer] patient independent with adls. He lives with . He has steps at home to bedroom and basement. His does most cooking and cleaning. Patient drives short distances. He is currently rec oxygen but has no oxygen at home. His PCP Dr Hall noted on face sheet and patient reports he does not see her. He states his phys he sees is his cook jelly Dr Miranda. Patient might need home oxygen at dc. casemgt following
[2018-09-27 16:18] VITALS: BP 152/87
--- NOTE | 2018-09-27 17:16 | NUR ---
TOWARDS POC PT A/O X4, VSS, FEBRILE AT 102.4. PRN MEDS GIVEN, PAIN MANAGED BY MEDS-SEE AUG. PT HAD DIALYSIS WITH 1.5L OUT. PT HEAR RATE 110S-120S, PROVIDER NOTIFIED. ORDERS CARRIED OUT.
[2018-09-27 20:08] VITALS: BP 168/83
--- NOTE | 2018-09-27 23:03 | NUR ---
Assumed care at 1845. Pt AOX4. VSS. Febrile at times gave Tylenol. Dialysis was done today (M/W/F). HR stable pt has been put on scheduled metopolol. On TELE running SR. Dressing on right hand CDI. Missing xrays documents for the hair line fracture of 5th digit. Possible xray of the right hand will be scheduled. No identified needs at the moment. Will continue to monitor.
[2018-09-28 03:39] VITALS: BP 183/73
[2018-09-28 04:23] LABS: HEMOGLOBIN 7.9 gm/dL (14.0-18.0); MCH 27.5 pg (26.0-34.0); MCHC 30.6 g/dL (28.0-37.0); MCV 90.1 fL (80.0-100.0); RBC 2.89 mil/uL (4.50-6.00); WBC 19.3 thou/uL (4.0-11.0)
[2018-09-28 04:27] LABS: ALBUMIN 2.8 g/dL (3.4-5.0); CALCIUM 9.3 mg/dL (8.5-10.1); PHOSPHORUS 6.3 mg/dL (2.5-4.9); POTASSIUM 4.7 mmol/L (3.5-5.1)
[2018-09-28 04:34] LABS: CREATININE 11.6 mg/dL (0.7-1.3)
[2018-09-28 07:46] VITALS: BP 147/64
--- NOTE | 2018-09-28 10:16 | HC ---
[facility] [place] [address] CONSULTATION Name: GARZACOLIN II Room #: 455-P ADM IN M.R.#: [id number] Admission: 09/26/18 ������������������ Attend Phys: Herbie Perez MD Discharge: ������������������ Date of : 70 Report #: [id number] THIS REPORT FOR: //name// CC: Mendel Peterson NO PCP Herbie Perez DATE OF SERVICE: 09/27/2018 CHIEF COMPLAINT: Right hand fracture and left knee pain. HISTORY OF PRESENT ILLNESS: This 48-year-old obese gentleman who is a chronic renal dialysis patient apparently fell several days ago from his bed. He states he was seen at [facility] where I understand x-rays revealed a nondisplaced crack involving the fifth metacarpal. He states he also had x-ray evaluation of the left knee. Unfortunately, at this time, neither the report nor the images are available for my review. Objectively, he is very difficult to evaluate because he is rather sedated and lethargic and uncooperative and with any movement or arousal he tends to be quite hypersensitive and has a touch me not appearance, reluctant to allow any touching or evaluation either the right hand or the left knee. In general, however, the right hand seems to be supported in an elastic wrap and mild splint. There is some tenderness over the fifth metacarpal extending towards the MP joint. There is no obvious deformity. The left knee demonstrates no obvious swelling or bruising. He is uncomfortable with any movement or even gentle touching, but this is rather diffuse and nonspecific, more suggestive of some generalized hypersensitivity and symptom magnification. I see no obvious injury, deformity or swelling on objective exam. This patient is here primarily for urosepsis and renal dialysis. I think his other injuries appear to be rather minor. I doubt there is a significant injury involving either the knee or the hand. However, I would certainly be happy to review the images and reports if Radiology can get these in the system, so that I can review them. If he remains symptomatic and those outside images are not available, then we will simply need a repeat new x-rays here. At this point, however, I think he probably can stand and transfer or ambulate as comfort and strength will allow. I will be happy to comment further once the images and documents are available for review. ��������������������������������������������� <ELECTRONICALLY SIGNED> ���������������������������������������� By: Sumanth Bender MD ��������������������������������������������� 09/28/18 1016 1313 0218 Sumanth Bender MD /nt
[2018-09-28 14:35] VITALS: BP 140/58
--- NOTE | 2018-09-28 16:21 | NUR ---
Received patient awake on bed. Due medications given as prescribed. With Saline lock at Right forearm. With fistula for dialysis on left arm. Alert and oriented x 4. Assisted in ADLs. Breathing on room air, may have O2 at 2lpm via nasal cannula as needed, has CPAP at night. Patient on max assist, uses bedside commode as handed over by night staff. Patient screaming from pain, complained of chronic back pain, patient seen by Dr. Perez- IV medications prescribed(Fentanyl, Alprazolam) and PO Oxydocone-given as prescribed.
--- NOTE | 2018-09-28 18:54 | NUR ---
Nursing notes- Day shift- Addendum. Patient's mother at bedside the whole day. Blood sugar monitored. Pre-lunch reading of 211, insulin not given as patient did not have lunch. Patient due for oral tablets but not given as patient is drowsy from medications given; [facility]. Patient checked frequently, shouts then goes back to sleep, responds to painful stimuli. Dr. Bender seen and examined patient, looking for xrays and says that no one still found it; no handover about xray films. Patient with lidocaine patch at lower back as prescribed. Patient slept the whole shift. Radiology been calling to send patient down but mentioned to them that patient is still drowsy and cannot keep self awake. Blood sugar monitored closely. Dr. Perez informed at 6:30pm that patient still asleep. Vital signs mentioned. To have STAT ABG now- requested and done. To HOLD ALL pain medications and sedative until patient is awake. Asked DR. Perez if ok reschedule xray once patient is fully awake.
[2018-09-28 19:01] LABS: BE(vivo) 0.3 mmol/L (-2 to +3); HCO3 25.3 mmol/L (22.0-26.0); PCO2 42.4 mmHg (35.0-45.0); PO2 60.4 mmHg (80.0-100.0); pH 7.393 (7.360-7.450)
[2018-09-28 19:43] VITALS: BP 155/90
--- NOTE | 2018-09-29 03:03 | NUR ---
PT LETHARGIC PT AOX3 PT WORE CPAP ALL DURING THE NIGHT PT WOULD INTERMITTANTLY WAKE UP AND YELL OUT BUT GO BACK TO SLEEP PT SLEPT MOST OF THE SHIFT PO MEDS HELD DUE TO POSS ASPIRATION RISK.
--- NOTE | 2018-09-29 05:31 | NUR ---
PROVIDER CALLED ON PTS LETHARGIC MENTAL STATUS PROVIDER CAME DONE AND ASSESED PT.
[2018-09-29 06:26] VITALS: BP 152/85
--- NOTE | 2018-09-29 11:21 | HC ---
[facility] [place] [address] CONSULTATION Name: COLIN GARZA II Room #: 455-P ADM IN M.R.#: [id number] Admission: 09/26/18 ������������������ Attend Phys: Herbie Perez MD Discharge: ������������������ Date of : 70 Report #: [id number] THIS REPORT FOR: //name// CC: Mendel Peterson NO PCP Herbie Perez DATE OF SERVICE: 09/27/2018 REASON FOR CONSULTATION: End-stage renal disease. HISTORY OF PRESENT ILLNESS: A 48-year-old gentleman well known to our service with longstanding diabetes mellitus and triopathy, end-stage renal disease, on dialysis for several years now. His course has been complicated by somewhat poor compliance, particularly with fluid and volume related and coming to dialysis related issues. He dialyzes in the [facility]. The patient has chronic low back syndrome. He fell. He hurt his knees and right hand, at some point with [facility], had some x-rays. Apparently, he has a fracture of his right fifth finger. He was given pain medication. Along the way, he developed fevers, was seen yesterday at [facility] and at that point was found to have urinary tract infection, fever and lethargy. He was felt to be infected and admitted up here for further treatment and dialysis. Of note, he was given opiate pain medications and had been taking them possibly to excess at home before he came in with lethargy. PAST MEDICAL HISTORY: Longstanding diabetes, triopathy. He has had previous left great toe diabetic foot ulcer, which has healed. He has had hypertension, noncompliance, and some degree of asthma as well. HOME MEDICATIONS: Include aspirin 81 mg daily, Nephrocaps 1 daily, PhosLo 2 with meals t.i.d., Breo Ellipta, omeprazole 20 mg daily, Lyrica 75 mg t.i.d., Zoloft 50 mg daily, trazodone 50 mg daily and opiate pain medication. FAMILY HISTORY: Positive for diabetes and hypertension. SOCIAL HISTORY: Negative for cigarettes and alcohol. REVIEW OF SYSTEMS: GENERAL: He is a bit lethargic, but able to answer questions well. EYES: Vision reasonably good. He has had history of retinopathy. ENT: Hearing okay, swallows okay. No mouth sores. ENDOCRINE: Positive for diabetes. RESPIRATORY: He is not short-winded at all. No wheezing. CARDIAC: No chest pain or palpitations. GASTROINTESTINAL: Appetite has been somewhat poor, but no nausea, vomiting, [facility] [address] [place] [address] CONSULTATION Name: COLIN GARZA Room #: [facility] IN .R.#: [id number] Admission: 09/26/18 ������������������ Attend Phys: Herbie Perez MD Discharge: ������������������ Date of : 70 Report #: [id number] bloody stools or diarrhea. GENITOURINARY: Does not make a lot of urine. He does have a little bit of dysuria. NEUROLOGIC: He has got numbness in the feet weakness. MUSCULOSKELETAL: He has got chronic low back pain, pain in his right fifth finger area where he has a fracture and pain in both knees and he also fell with those. LABORATORY DATA: Hemoglobin 8.1, white count 16.7, platelets 215. Sodium 132, potassium 5.2, chloride 93, bicarbonate 22, creatinine 16.2, BUN 80. ASSESSMENT AND PLAN: 1. End-stage renal disease, in need of dialysis. This will be ordered and arranged. Orders written. 2. Fall with right fifth finger fracture and knee trauma. This will be evaluated by Orthopedics. 3. Diabetes mellitus with triopathy. 4. Urinary tract infection. This will be appropriately treated. I am not particularly clear as to whether he had appropriate cultures taken before treatment was initiated. I believe the cultures were taken down at [facility]. He has been started on ceftriaxone, has received some of that here. 5. Chronic low back syndrome. ��������������������������������������������� <ELECTRONICALLY SIGNED> ���������������������������������������� By: Edwin Jolly MD ��������������������������������������������� 09/29/18 1121 0904 191 Edwin Jolly MD /nt
[2018-09-29 13:00] VITALS: BP 144/74
--- NOTE | 2018-09-29 14:32 | NUR ---
ASSUMED CARE 0700. PT LEFT FOR DIALYSIS AT 0730 THIS AM AND RETURNED TO UNIT AT APPROXIMATELY 1300. PT REMAINS SEDATED HOWEVER HE WILL AROSES TO VOICE AND TOUCH BUT DOES NOT REMAIN AWAKE. NO PO MEDS NOR FLUIDS/FOOD GIVEN DUE TO POSSIBLE ASPIRATION RISK. XRAY AND REPORTS FROM [facility] WAS CLOUDED OVER. PT LEFT FOR LUMBAR XRAY AT THIS TIME. WAITING FOR RESULTS. DR MARCANO'S OFFICE NOTIFED. DR GUTIÉRREZ ROUNDED THIS AM. NO SEDATIVE MED TO BE GIVEN. FALL PRECAUTIONS IN PLACE. CALL LIGHT IN REACH. FAMILY BESIDE.
[2018-09-29 15:00] VITALS: BP 156/79
--- NOTE | 2018-09-29 16:38 | NUR ---
IT IS ANTICIPATED THAT PT WILL LIKELY DISCHARGE HOME ONCE MEDICALLY STABLE WITH NO NEEDS. PT HAS A CANE, FWW, AND CPAP FOR HOME USE. CM ABLE TO FOLLOW SHOULD ANY DC NEEDS ARISE.
[2018-09-29 18:45] LABS: HEMATOCRIT 25.4 % (42.0-52.0); HEMOGLOBIN 7.7 gm/dL (14.0-18.0); MCH 26.9 pg (26.0-34.0); MCHC 30.1 g/dL (28.0-37.0); MCV 89.4 fL (80.0-100.0); PLATELET COUNT 294 thou/uL (150-400); RBC 2.85 mil/uL (4.50-6.00); RDW 20.2 % (10.5-14.5); WBC 16.4 thou/uL (4.0-11.0)
[2018-09-29 18:54] LABS: ALBUMIN 2.2 g/dL (3.4-5.0); CREATININE 9.3 mg/dL (0.7-1.3); POTASSIUM 4.4 mmol/L (3.5-5.1); TOTAL BILIRUBIN 0.5 mg/dL (<0.1-1.0); TOTAL PROTEIN 8.3 g/dL (6.4-8.2)
[2018-09-29 19:12] LABS: ABSOLUTE NEUTROPHILS 12.8 thou/uL (1.4-8.2); ANISOCYTOSIS 1+; METAMYELOCYTES 2 %; PLATELET ESTIMATE NORMAL
[2018-09-29 20:13] VITALS: BP 143/81
[2018-09-30 03:17] VITALS: BP 183/85
[2018-09-30 05:42] LABS: HEMATOCRIT 23.6 % (42.0-52.0); HEMOGLOBIN 7.3 gm/dL (14.0-18.0); MCH 27.5 pg (26.0-34.0); MCHC 31.2 g/dL (28.0-37.0); MCV 88.4 fL (80.0-100.0); RBC 2.67 mil/uL (4.50-6.00); WBC 14.9 thou/uL (4.0-11.0)
[2018-09-30 05:59] LABS: ALBUMIN 2.1 g/dL (3.4-5.0); PHOSPHORUS 6.7 mg/dL (2.5-4.9); POTASSIUM 4.8 mmol/L (3.5-5.1)
[2018-09-30 06:05] LABS: CREATININE 10.3 mg/dL (0.7-1.3)
[2018-09-30 07:17] VITALS: BP 159/86
[2018-09-30 15:20] VITALS: BP 176/77
--- NOTE | 2018-09-30 15:35 | NUR ---
PT ALERT AND ORIENTED TIMES TWO SLEF AND PLACE. PT LETHARGIC THIS MORNING. PT YELLING FOR SOME PART OF THE SHIFT DUE TO C/O PAIN "ALL OVER" SCHEDULED PAIN MEDICATIONS GIVEN ONCE WITH SOME RELEIF. PT PICKS WHICH MEDS HE WANTS TO TAKE, REFUSED MOST TIMES. PT HAS POOR APPETITE. PT NOT PROGRESSING TOWRADS POC GOALS AT THIS TIME.
[2018-09-30 19:46] VITALS: BP 158/87
[2018-10-01 03:36] VITALS: BP 139/68
--- NOTE | 2018-10-01 04:39 | NUR ---
Pt. has been lethargic most of the shift. There are times during the shift when he would become awake, but only oriented to self. Pt. does have periods of outbursts where he will yell out for a few seconds. When asking pt. what is wrong, he will not answer. Bed alarm is on.
--- NOTE | 2018-10-01 04:53 | HC ---
[facility] [place] [address] CONSULTATION Name: COLIN GARZA Olu Room #: 455-P ADM IN M.R.#: [id number] Admission: 09/26/18 ������������������ Attend Phys: Herbie Perez MD Discharge: ������������������ Date of : 70 Report #: [id number] THIS REPORT FOR: //name// CC: Mendel Peterson NO PCP Herbie Perez DATE OF SERVICE: 09/30/2018 INFECTIOUS DISEASE CONSULTATION ATTENDING PHYSICIAN: Dr. Herbie Perez. REASON FOR EVALUATION: Complicated urinary tract infection with isolation of MRSA. HISTORY OF PRESENT ILLNESS: Chart reviewed, patient examined. This is a 48-year-old man with end-stage renal disease, on hemodialysis thrice weekly, Tuesday, Tuesday, Fridays, apparently complication of diabetes mellitus type 2. Does have additional evidence of cardiomyopathy with congestive heart failure and chronic pain issues who was admitted urgently with complaints of fevers, chills, poor appetite. Most of the history is obtained via the record, although arouses is not particularly coherent, complains of generalized pain, difficult to ascertain details of the history, was confirmed positive urine culture apparently as an outpatient with MRSA. He was empirically placed on vancomycin. Had received ceftriaxone as well. Notably, his saturations are adequate. He is not on supplemental oxygen. ALLERGIES: LISTED TO PENICILLINS. CURRENT MEDICATIONS: Include vancomycin will get it thrice weekly 500 mg Tuesday, Tuesday, Tuesday, insulin, baclofen, oxycodone, aspirin, amlodipine, pantoprazole, alprazolam, loratadine, metoprolol, sevelamer. PAST MEDICAL HISTORY: Diabetes mellitus type 2 complicated by vasculopathy; end-stage renal disease, cardiomyopathy, congestive heart failure, history of peripheral neuropathy, has chronic back pain, anxiety, depression, hypertension, IBS, constipation, left eye blindness, obstructive sleep apnea and obesity. SOCIAL HISTORY: Nonsmoker, no ethanol, no illicit drug use. FAMILY HISTORY: Noncontributory. REVIEW OF SYSTEMS: Not reliably obtained. PHYSICAL EXAMINATION: [facility] [address] [place] [address] CONSULTATION Name: KAYLACOLIN D Room #: [address] [place] [address] IN .R.#: [id number] Admission: 09/26/18 ������������������ Attend Phys: Herbie Perez MD Discharge: ������������������ Date of : 70 Report #: [id number] GENERAL: He appears in moderate distressed at this point. He is clearly uncomfortable. He is in and out of responsiveness, appears chronically ill, undernourished. VITAL SIGNS: Temperature max overnight 102.4, more recently 98.9, pulse 87, respirations 20, blood pressure 183/85. SKIN: Warm, dry. NECK: Appears to be supple, normocephalic. Extraocular muscles intact. LUNGS: Diminished breath sounds. Few scattered crackles at the bases. HEART: Regular, soft systolic murmur. ABDOMEN: Obese, soft. There are no apparent peritoneal signs. EXTREMITIES: Distal lower extremities without significant edema. He makes minimal urine. GENITOURINARY AND RECTAL: Deferred. LABORATORY DATA: From today, sodium 135, potassium 4.8, chloride 94, bicarbonate is 25, BUN and creatinine 65 and 10.3, anion gap of 16, glucose 379, albumin of 2.1. CBC: White count 14.9, H and H 7.3 and 23.6, platelets of 292. CBC: White count 16.4, H and H 7.7 and 25.4, platelets of 294. Recent liver functions were otherwise unremarkable. Albumin of 2.2 as noted above, protein of 8.3. ABGs: pH 7.393, pCO2 of 42.4, pO2 of 60.4 on room air. ASSESSMENT AND PLAN: Febrile illness with apparently confirmed isolation of MRSA from urinary tract. Certainly at risk for additional infectious complications and I think vancomycin is reasonable, will continue that as general approach, would be concerned about other issues as well including pneumonitis given his altered mental status. We will do a chest x-ray. Dose with cefepime in the interim, blood cultures in progress, await those results. He has evidence of incentive spirometer, but I do not think he is able to engage that. We will monitor expectantly. ��������������������������������������������� <ELECTRONICALLY SIGNED> ���������������������������������������� By: Shane Thompson MD ��������������������������������������������� 10/01/18 0453 [id number] Shane Thompson MD /nt
[2018-10-01 05:51] LABS: HEMATOCRIT 25.6 % (42.0-52.0); MCH 27.3 pg (26.0-34.0); MCHC 31.1 g/dL (28.0-37.0); MCV 87.7 fL (80.0-100.0); RBC 2.91 mil/uL (4.50-6.00); RDW 20.9 % (10.5-14.5); WBC 15.5 thou/uL (4.0-11.0)
[2018-10-01 06:00] LABS: CALCIUM 9.5 mg/dL (8.5-10.1); POTASSIUM 4.4 mmol/L (3.5-5.1)
[2018-10-01 06:01] LABS: CREATININE 12.4 mg/dL (0.7-1.3)
[2018-10-01 08:00] VITALS: BP 154/78
[2018-10-01 12:26] LABS: BE(vivo) -0.5 mmol/L (-2 to +3); HCO3 24.3 mmol/L (22.0-26.0); PCO2 40.3 mmHg (35.0-45.0); PO2 100.9 mmHg (80.0-100.0); pH 7.398 (7.360-7.450); sO2 97.6 % (92.0-98.0)
--- NOTE | 2018-10-01 18:13 | NUR ---
PT A&OX2, LETHARGIC, VSS, C/O OF GENERALIZED PAIN WITH MOVEMENT. FAMILY AT BEDISE IN AM. PT HAS BEEN COOPERATIVE, LESS YELLING OUT. FALL PRECAUTIONS IN PLACE, WILL CONTINUE TO MONITOR.
[2018-10-01 20:36] VITALS: BP 175/88
[2018-10-02 04:04] VITALS: BP 139/73
[2018-10-02 04:59] LABS: HEMATOCRIT 24.3 % (42.0-52.0); HEMOGLOBIN 7.8 gm/dL (14.0-18.0); MCH 27.7 pg (26.0-34.0); MCHC 32.2 g/dL (28.0-37.0); MCV 85.9 fL (80.0-100.0); RBC 2.83 mil/uL (4.50-6.00); RDW 19.8 % (10.5-14.5); WBC 16.7 thou/uL (4.0-11.0)
[2018-10-02 05:20] LABS: CALCIUM 8.9 mg/dL (8.5-10.1); POTASSIUM 4.7 mmol/L (3.5-5.1)
[2018-10-02 05:23] LABS: CREATININE 13.7 mg/dL (0.7-1.3)
--- NOTE | 2018-10-02 07:30 | NUR ---
PATIENT AOX2 AND WAS ABLE TO SLEEP THIS SHIFT. PT HAS SEVERE PAIN WHEN MOVED. NO BM THIS SHIFT. CONTINUE TO MONITOR. PATIENT IS PROGRESSING TOWARDS DC GOALS.
[2018-10-02 14:00] VITALS: BP 153/80
--- NOTE | 2018-10-02 15:07 | 2DMMODE ---
[place] [address] [facility] [place] [address] 2 D/M-MODE ECHOCARDIOGRAM Name: COLIN GARZA Room #: 455-P ADM IN M.R.#: [id number] ������������� Admission: 09/26/18 ������������� Attend Phys: Herbie Perez MD Discharge: ��� ������������� ��� Date of : 70 Date of Service: 10/02/18 1507 �� Report #: [id number] �������� ��������������������������������������������[id number] THIS REPORT FOR: //name// APPROVED REPORT Study performed: 10/02/2018 14:11:02 EXAM: Comprehensive 2D, Doppler, and color-flow Echocardiogram Patient Location: Bedside Room #: [facility] Status: routine BSA: 2.55 HR: 101 bpm BP: 139/73 mmHg Rhythm: Tachycardia Other Information Study Quality: Technically Difficult/Technically Limited Technically limited study due to patient laying on right side, morbid obesity. Indications Diabetes Hypertension/HDD ESRD Echo Enhancing Agent Indication: Endocardial border delineation Agent(s) / Amount(s) Used: Optison 3 cc 2D Dimensions IVSd: 13.80 (7-11mm) LVOT Diam: 20.19 (18-24mm) LVDd: 50.71 mm PWd: 13.86 (7-11mm) LVDs: 37.89 (25-40mm) Aortic Root: 25.77 mm IVC: 17.00 mm Volumes Left Atrial Volume (Systole) Single Plane 4CH: 34.56 mL Single Plane 2CH: 34.07 mL LA ESV Index: 16.00 mL/m2 Aortic Valve AoV Peak Ariel.: 1.74 m/s AO Peak Gr.: 12.15 mmHg LVOT Max P.43 mmHg [facility] [address] [place] [address] 2 D/M-MODE ECHOCARDIOGRAM Name: COLIN GARZA Olu Room #: 455-P [facility] [place] [facility]#: [id number] ������������� Admission: 09/26/18 ������������� Attend Phys: Herbie Perez MD Discharge: ��� ������������� ��� Date of : 70 Date of Service: 10/02/18 1507 �� Report #: [id number] �������� ��������������������������������������������[id number] LVOT Max V: 1.27 m/s JOE Vmax: 2.33 cm2 Mitral Valve E/A Ratio: 0.7 MV Decel. Time: 159.33 ms MV E Max Ariel.: 0.79 m/s MV A Ariel.: 1.08 m/s MV PHT: 46.20 ms IVRT: 93.43 ms Pulmonary Valve PV Peak Ariel.: 1.46 m/s PV Peak Gr.: 8.57 mmHg Tricuspid Valve RAP Estimate: 5.00 mmHg Left Ventricle The left ventricle is normal size. Mild to moderate concentric left ventricular hypertrophy. The left ventricular systolic function is normal. The left ventricular ejection fraction is within the normal range. LVEF is 55%. Transmitral Doppler flow pattern suggests impaired LV relaxation. Right Ventricle Right ventricle is not well visualized. Right ventricular systolic function is grossly normal. Atria The left atrium size is normal. The right atrium size is normal. Aortic Valve The aortic valve is not well visualized. No aortic regurgitation is present. There is no aortic valvular stenosis. Mitral Valve The mitral valve is normal in structure. There is no mitral valve regurgitation noted. No evidence of mitral valve stenosis. Tricuspid Valve The tricuspid valve is not well visualized. There is no tricuspid valve regurgitation noted. Unable to assess PA pressure. Pulmonic Valve Pulmonic valve is not well visualized. [address] [address] 2 D/M-MODE ECHOCARDIOGRAM Name: COLIN GARZA Room #: 455-P ADM IN M.R.#: [id number] ������������� Admission: 09/26/18 ������������� Attend Phys: Herbie Perez MD Discharge: ��� ������������� ��� Date of : 70 Date of Service: 10/02/18 1507 �� Report #: [id number] �������� ��������������������������������������������[id number] Great Vessels The aortic root is normal in size. IVC is normal in size and collapses >50% with inspiration. Pericardium There is no pericardial effusion. <Conclusion> The left ventricle is normal size. LVEF is 55%. The aortic valve is not well visualized. The mitral valve is normal in structure. The tricuspid valve is not well visualized. There is no tricuspid valve regurgitation noted. Unable to assess PA pressure. Pulmonic valve is not well visualized. There is no pericardial effusion. ��������������������������������������������� <ELECTRONICALLY SIGNED> ���������������������������������������� By: Diego Aguilar MD ��������������������������������������������� 10/02/18 1507 1507 1507 Diego Aguilar MD /INF
--- NOTE | 2018-10-02 18:30 | NUR ---
PT ASSESSED AT START OF SHIFT. PT VERY DROWSY AND SLOW TO RESPOND TO QUESTIONS WHICH NEED TO BE REPEATED FREQUENTLY. C/O SEVERE BACK AND LEG PAINS WHEN REPOSITIONED. DIALYZED THIS AM W/O INCIDENT. DR. TVAARES SAW PT THIS AFTERNOON AND ORDERED MULTPLE FILMS. PT REFUSED MRI'S FOR SPINE. IV MORPHIME GIVEN W/ SOME RELIEF BUT PT NOT ABLE TO RELATE HOW MUCH. REFUSED MEDS BUT AGREED TO TAKE HIS BP MEDS. DID NOT EAT ANY OF MEALS. SCHEDULED INSULIN HELD AND AM LANTUS GIVEN. LOW GRADE TEMP.
[2018-10-02 19:14] VITALS: BP 162/89
[2018-10-03 03:40] VITALS: BP 152/84
[2018-10-03 07:04] VITALS: BP 125/59
--- NOTE | 2018-10-03 07:39 | NUR ---
PT AO X 2. PT REFUSED TO BE TURNED THIS SHIFT. PT WAS ABLE TO GET COMFORTABLE AND SLEEP PART OF THE SHIFT WITH CPAP ON. NO OTHER QUESTIONS OR CONCERNS AT THIS TIME. PT IS PROGRESSING TOWARDS DC GOALS.
[2018-10-03 14:48] VITALS: BP 139/75
--- NOTE | 2018-10-03 17:12 | NUR ---
NURSE INDICATED PT WAS REFUSING MRI. SHE INDICATED THAT PT'S PAIN IS BETTER CONTROLLED TODAY. CM FOLLOWING REGARDING DC PLANNING.
--- NOTE | 2018-10-03 17:13 | NUR ---
ASSUMED CARE OF PT AT 0700. ASSESSMENT COMPLETED. A&O,X4. C/O OF 10/10 BACK PAIN, MEDS GIVEN ORDERED. ACHS, INSULIN GIVEN ORDERED. WEANED FROM 2 L NC TO ROOM AIR, SATS ABOVE 90%. PT HAD MRI TODAY, MEDS GIVEN BEFORE PROCEDURE TO CALM PT ORDERED. PT TRANSFERED VIA CART, LEFT AND RETURNED IN STABLE CONDITION. NEW CONSULT FOR ORTHO. MRSA ISOLATION. FAMILY AT BEDSIDE. PT IN STABLE CONDITION.
[2018-10-03 20:59] VITALS: BP 167/85
[2018-10-03 23:23] VITALS: BP 133/66
[2018-10-04 05:03] VITALS: BP 159/80
[2018-10-04 07:25] VITALS: BP 133/70
--- NOTE | 2018-10-04 08:02 | NUR ---
PT WAS DROWSY MOST OF THE SHIFT AND WAS SLEEPING. PT DID WAKE UP TO TAKE MEDS. PT REFUSED Q2 TURNS. BACK PAIN WAS NOT REPORTED THIS SHIFT. DIALYSIS IN THE AM. PT IS PROGRESSING TOWARDS DC GOALS.
--- NOTE | 2018-10-04 13:16 | NUR ---
Nutrition: Pt seen for f/u. Assessed during dialysis, has been undergoing dialysis for several hours. Would answer some questions, drift off and not answer others. States appetite has been fair with around 50% intake. Is drinking Nepro. No new wt to assess, will request updated wt. Continue at low risk.
[2018-10-04 14:41] LABS: HEMATOCRIT 23.7 % (42.0-52.0); MCHC 31.1 g/dL (28.0-37.0); MCV 86.7 fL (80.0-100.0); RBC 2.73 mil/uL (4.50-6.00); RDW 19.7 % (10.5-14.5); WBC 15.5 thou/uL (4.0-11.0)
[2018-10-04 14:42] LABS: HEMOGLOBIN 7.4 gm/dL (14.0-18.0)
[2018-10-04 14:50] LABS: CALCIUM 9.9 mg/dL (8.5-10.1); MAGNESIUM 2.4 mg/dL (1.8-2.4); POTASSIUM 4.9 mmol/L (3.5-5.1)
[2018-10-04 14:51] LABS: CREATININE 6.4 mg/dL (0.7-1.3)
[2018-10-04 15:06] VITALS: BP 131/69
[2018-10-04 15:35] LABS: BF CRYSTALS No Crystals seen
[2018-10-04 15:48] LABS: BF NUCLEATED CELLS 14988; BF RBC 3258
[2018-10-04 15:51] LABS: TOTAL VOLUME 60 mL
[2018-10-04 15:52] LABS: CLARITY TURBID; COLOR YELLOW
--- NOTE | 2018-10-04 16:04 | NUR ---
CARE TEAM INDICATED MAHESH TO BE DONE TOMORROW. ORTHO TO CONSULT REGARDING KNEE AND BACK. CM TO FOLLOW INDICATED WITH DC PLANNING.
[2018-10-04 16:34] LABS: BF MACROPHAGE 2; BF NEUTROPHILS 92; SOURCE SYNOVIAL
--- NOTE | 2018-10-04 18:38 | NUR ---
Assued pt care this am, dialysis was done in the morning. Pt drifts in and out of sleep for the nmost part of the day. Only eats 30 to 40% of his meals for the evening, pt did not want to eat his breakfast or lunch but had his nepro drink. Pt also refused to get up or move due to his knee and back pain. Fluid in the left knee aspirated, send to the labs new diagnostics plut in. Scheduled for MRI of the hand w/o contrast tomorrow and echo transesophageal, thus pt is to be NPO at midnight tonight. Pt still refuses to turn or get up from the bed. Dialysis rendered 1500ml , vs stable. POC followed no issues or complaints verbalized by the pt.
[2018-10-04 19:39] VITALS: BP 133/78
--- NOTE | 2018-10-05 04:16 | NUR ---
PT AOX2 AND WAS ABLE TO SLEEP PART OF THE SHIFT. PT REFUSED Q2 TURNS. PT WAS GIVEN A PARTIAL BED BATH. PAIN REPORTED WHEN PT IS MOVED AND TREATED ACCORDINGLY. PT NPO SINCE MIDNIGHT. NO S/S OF ACUTE DISTRESS. WILL CONTINUE TO MONITOR.
[2018-10-05 05:38] VITALS: BP 147/75
--- NOTE | 2018-10-05 09:33 | TEE ---
[facility] [address] [place] [address] TRANSESOPHAGEAL ECHOCARDIOGRAM Name: COLIN GARZA Room #: 455-P [facility] IN ..#: [id number] ������������� Admission: 09/26/18 ������������� Attend Phys: Herbie Perez MD Discharge: ��� ������������� ��� Date of : 70 Date of Service: 10/05/18 0932 �� Report #: [id number] �������� ��������������������������������������������[id number] THIS REPORT FOR: //name// APPROVED REPORT Study performed: 10/05/2018 08:13:17 EXAM: Comprehensive 2D, Doppler, and color-flow Echocardiogram Patient Location: [facility] Room #: 9 Status: routine BSA: 2.55 HR: 81 bpm BP: 127/58 mmHg Rhythm: NSR Other Information Study Quality: Good Indications Sepsis Echo Enhancing Agent Indication: Rule out Shunt Agent(s) / Amount(s) Used: Agitated Saline 7 cc Procedure After obtaining informed consent, patient underwent transesophageal echo in the [facility]. Type of Sedation : Conscious Sedation Sedation was administered by Kirk Altman RN. Sedation was achieved intravenously with: Versed (4 mg) Fentanyl (100 mcg) Transesophageal probe was inserted and advanced into esophagus without difficulty by Darinel Ayala MD. Echo enhancement indication: R/O Septal defect. Echo enhancement agent administered: Agitated Saline The MAHESH was performed without complications. Throughout the procedure, the blood pressure, pulse oximetry, cardiac rhythm, and rate were monitored. The patient tolerated the procedure without adverse effects. Recovery from conscious sedation was uneventful and vital signs were stable. [facility] [place] [address] TRANSESOPHAGEAL ECHOCARDIOGRAM Name: GARZACOLIN Room #: 455-[facility] IN .R.#: [id number] ������������� Admission: 09/26/18 ������������� Attend Phys: Herbie Perez MD Discharge: ��� ������������� ��� Date of : 70 Date of Service: 10/05/18 0932 �� Report #: [id number] �������� ��������������������������������������������[id number] Left Ventricle The left ventricle is normal size. There is normal LV segmental wall motion. Mild concentric left ventricular hypertrophy. Left ventricular systolic function is normal. The left ventricular ejection fraction is within the normal range. LVEF is 55-60%. Right Ventricle The right ventricle is normal size. The right ventricular systolic function is normal. Atria The left atrium size is normal. No thrombus is visualized in the left atrium or appendage. No shunting by contrast bubble injection The right atrium size is normal. Aortic Valve The aortic valve is normal in structure. No aortic regurgitation is present. There is no aortic valvular stenosis. Mitral Valve The mitral valve is normal in structure. There is no mitral valve regurgitation noted. No evidence of mitral valve stenosis. Tricuspid Valve The tricuspid valve is normal in structure. There is no tricuspid valve regurgitation noted. Pulmonic Valve The pulmonary valve is normal in structure. There is no pulmonic valvular regurgitation. Great Vessels The aortic root is normal in size. The ascending aorta is normal in size. IVC is normal in size and collapses >50% with inspiration. Pericardium There is no pericardial effusion. Critical Notification Physician Notified <Conclusion> 1. Normal MAHESH with Doppler [facility] [address] [place] [address] TRANSESOPHAGEAL ECHOCARDIOGRAM Name: GARZACOLIN Room #: 455-P [facility] IN [facility]#: [id number] ������������� Admission: 09/26/18 ������������� Attend Phys: Herbie Perez MD Discharge: ��� ������������� ��� Date of : 70 Date of Service: 10/05/18931 �� Report #: [id number] �������� ��������������������������������������������[id number] 2. No shunting by contrast bubble injection 3. No vegetations or thrombi ��������������������������������������������� <ELECTRONICALLY SIGNED> ���������������������������������������� By: Darinel Ayala MD, [facility] ��������������������������������������������� 10/05/18931 1 1 Darinel Ayala MD, [facility] /INF
[2018-10-05 14:38] VITALS: BP 139/52
--- NOTE | 2018-10-05 15:06 | NUR ---
CM MET WITH PT, SISTER, AND MOTHER AT BEDSIDE THIS DAY THEY INDICATED THAT THEY HAD SOME CONCERNS. PT INDICATED HE DIDN'T FEEL LIKE HE WAS BEING INFORMED OF WHAT WAS GOING ON AND THAT STAFF WERE TO QUICK TO MOVE HIM AT TIMES. CM NOTIFIED PATIENT EXPERIENCE COORDINATOR OF CONCERNS AND HE MET WITH THEM. CM SPOKE WITH THEM SHORTLY ABOUT POSSIBLE LTAC STAY UPON DC AND THEY ALL SEEMED RECEPTIVE. CM TO CONTINUE TO FOLLOW INDICATED WITH DC PLANNING.
--- NOTE | 2018-10-05 19:40 | NUR ---
Assume pt care this am, isolation maintained. Pt was taken down for echo transesophageal and was sedated, vs stable pt returned tothe unit at 1030 am. At 11 am pt was taken down for MRI of his hand, pt was given xanax and pain medications were given. Seen by Dr. Curiel, was advised that a procedure may be required for the infected joints. Repositioned pt every 2 to 3 hours to prevent pressure ulcers. POC followed, pain medication given. Pt is not eating much of his meals through out the day though fluid intake is not an issue. Pt has not verbalized any other issues or concerns. MOther and sister were at the bed side today.
[2018-10-05 20:36] VITALS: BP 147/79
[2018-10-06 03:44] VITALS: BP 96/50
[2018-10-06 03:57] VITALS: BP 155/67
--- NOTE | 2018-10-06 04:47 | NUR ---
Pt. rested quietly at intervals during the night when checked on during frequent rounds. Pt. does not like to be turned or repositioned. He will yell out in pain when just lightly touching him. Bed alarm is on.
[2018-10-06 06:13] LABS: ALBUMIN 1.9 g/dL (3.4-5.0); CALCIUM 8.9 mg/dL (8.5-10.1); PHOSPHORUS 11.1 mg/dL (2.5-4.9)
[2018-10-06 06:15] LABS: CREATININE 10.8 mg/dL (0.7-1.3)
[2018-10-06 08:43] VITALS: BP 121/62
[2018-10-06 14:57] VITALS: BP 156/80
--- NOTE | 2018-10-06 19:45 | NUR ---
Pt on NPO for surgical procedure, went down 10am and came back to the unit at 1:30pm, VS stable. Left knee and right hand bandaged, ice packs placed. Pt started dialysis past 2 pm. POC followed, smoe medication not given since pt was on dialysis, endorsed to the night nurse. No issues or complaints verbalized.
[2018-10-06 20:23] VITALS: BP 173/73
[2018-10-07] VITALS: BP 137/74
[2018-10-07 03:50] VITALS: BP 116/52
--- NOTE | 2018-10-07 05:18 | NUR ---
Pt. has had periods of being alert and then becomes lethargic. He has had periods of taking his tele leads off and his right hand wound dressing off. Ice packs applied to his left knee and right hand. Bed alarm is on.
[2018-10-07 08:00] VITALS: BP 129/73
--- NOTE | 2018-10-07 08:41 | EKG ---
[address] [address] ELECTROCARDIOGRAM REPORT Name: COLIN GARZA II Room #: 455-P ADM IN M.R.#: [id number] ������������������ Admission: 09/26/18 ������������������ Attend Phys: Herbie Perez MD Discharge: ������������������ Date of : 70 Report #: [id number] ����������������������������������������������������������������� [id number] THIS REPORT FOR: //name// [facility] Test Date: 2018-10-06 Test Time: 09:35:51 Pat Name: COLIN GARZA Department: Room: 455 P Gender: M Supervisor Painting: RICA : 1970 Requested By: Jose Vallejo Order Number: [id number] MD: Eliel Alfaro Measurements Intervals [place] Rate: 77 P: 30 FL: 142 QRS: -7 QRSD: 107 T: 50 QT: 387 QTc: 438 Interpretive Statements Sinus rhythm RSR' in V1 or V2, right VCD or RVH Baseline wander in lead(s) II,V1,V3 Compared to ECG 06/04/2018 17:40:52 Electronically Signed On 10-07-2018 8:41:33 CDT by Eliel Alfaro [email or web address] ��������������������������������������������� <ELECTRONICALLY SIGNED> ���������������������������������������� By: Eliel Alfaro MD ��������������������������������������������� 10/07/18 0841 0935 0935 Eliel Alfaro MD /EPI
[2018-10-07 08:50] VITALS: BP 129/73
--- NOTE | 2018-10-07 19:54 | NUR ---
PATIENT ORIENTED TO PERSON, PLACE AND TIME BUT SLEEPY. PATIENT ATTEMPTED TO WALK TO BATHROOM FOR BM BUT WAS UNABLE TO STAND. PATIENT USED BEDPAN FOR BM. PATIENT CALLS OUT ON PAIN WHEN ATTEMPTING TO MOVE PATIENT DUE TO LEFT KNEE AND BACK PAIN. PATIENT'S MOTHER, SISTER AND YOUNG DAUGHTER AT BEDSIDE. SISTER WORKS HERE AT [employer]. DR MARCANO SPOKE AT LENGTH WITH PATIENT'S MOTHER REGARDING POTENTIAL BACK SURGERY ON TUESDAY.
[2018-10-07 21:15] VITALS: BP 91/49
--- NOTE | 2018-10-08 03:57 | NUR ---
Pt. has been uncooperative with his bedside turns. He does not like to be repositioned and can becoeme very beligerent to the staff. Pt. has been educated on the need for the turns to prevent skin breakdown, but pt. still not happy being turned. Dressing to right hand is intact and to left knee. Bed alarm is on.
[2018-10-08 05:24] LABS: MCHC 32.2 g/dL (28.0-37.0); RBC 2.21 mil/uL (4.50-6.00); RDW 19.7 % (10.5-14.5); WBC 13.1 thou/uL (4.0-11.0)
[2018-10-08 05:26] LABS: HEMOGLOBIN 6.2 gm/dL (14.0-18.0)
[2018-10-08 05:27] LABS: HEMATOCRIT 19.2 % (42.0-52.0)
[2018-10-08 05:30] LABS: CALCIUM 9.5 mg/dL (8.5-10.1); CREATININE 10.2 mg/dL (0.7-1.3); POTASSIUM 4.7 mmol/L (3.5-5.1)
[2018-10-08 05:41] VITALS: BP 128/62
[2018-10-08 08:25] VITALS: BP 111/52
--- NOTE | 2018-10-08 11:18 | NUR ---
Assumed pt care this am, seems to be more alert/ awake complared to previous days, though done not know what hospital he is at the moment. Pt is to have blood trasnfusion d/t 6.3 Hgb, tuped and screen done. Pt ate most of his breakfast try and drank his suppliment drink. Pt is having a large liquid bowel movement.
[2018-10-08 15:05] VITALS: BP 140/48
[2018-10-08 15:07] VITALS: BP 145/63; BP 152/78
[2018-10-08 19:46] VITALS: BP 156/75
[2018-10-08 21:01] LABS: HEMOGLOBIN 7.1 gm/dL (14.0-18.0)
[2018-10-08 21:03] LABS: HEMATOCRIT 22.4 % (42.0-52.0)
--- NOTE | 2018-10-09 05:00 | NUR ---
PT AOX3 AND WAS ABLE TO SLEEP PART OF THE NIGHT. PT WAS ENCOURAGED TO MOVE AND WAS TURNED. BLOOD TRANSFUSION WITH DIALYSIS SCHEDULED IN THE AM. NO OTHER COMPLAINTS OR CONCERNS AT THIS TIME. PT IS PROGRESSING TOWARDS DISCHARGE GOALS.
[2018-10-09 05:25] VITALS: BP 153/79
[2018-10-09 05:50] LABS: HEMOGLOBIN 6.8 gm/dL (14.0-18.0)
[2018-10-09 05:52] LABS: HEMATOCRIT 21.3 % (42.0-52.0); MCH 27.8 pg (26.0-34.0); MCHC 31.9 g/dL (28.0-37.0); RBC 2.44 mil/uL (4.50-6.00); RDW 19.4 % (10.5-14.5); WBC 10.7 thou/uL (4.0-11.0)
[2018-10-09 06:12] LABS: CALCIUM 9.1 mg/dL (8.5-10.1); MAGNESIUM 3.4 mg/dL (1.8-2.4); POTASSIUM 4.8 mmol/L (3.5-5.1)
[2018-10-09 06:17] LABS: CREATININE 11.9 mg/dL (0.7-1.3)
[2018-10-09 09:15] VITALS: BP 132/78; BP 136/62
[2018-10-09 09:37] VITALS: BP 154/52
[2018-10-09 10:32] VITALS: BP 105/59; BP 132/78; BP 136/62
[2018-10-09 15:09] VITALS: BP 134/70
--- NOTE | 2018-10-09 19:27 | NUR ---
ASSUMED CARE OF PT AT 0700. ASSESSMENT COMPLETED. DROWSY AT TIMES, BUT AROUSABLE. DIALYSIS TODAY, MEDS HELD UNTIL COMPLETED. ACHS, INSULIN GIVEN ORDERED. PRESSURE WOUND NOTED ON RIGHT BUTTOCK, PICTURE DOCUMENTED. BARRIER CREAM APPLIED, Q2H TURNS ENFORCED. DOUBLE REAMER OPERATOR CONSULT. C/O CHRONIC BACK PAIN, PO PAIN MEDS GIVEN ONE TIME ORDERED SEE EMAR. VISITORS AT BEDSIDE THIS EVENING. NO OTHER CHANGE IN STATUS. PT IN STABLE CONDITION.
[2018-10-09 20:15] VITALS: BP 136/67
[2018-10-10 04:00] VITALS: BP 141/66
--- NOTE | 2018-10-10 05:13 | NUR ---
ASSUMED CARE OF PT AT 1900HRS. AT AOX3 AND WAS ABLE TO SLEEP PART OF THE SHIFT. PT WAS TURNED Q2-3 HRS. NO OTHER QUESTIONS OR CONCERNS AT THIS TIME. WILL CONTINUE TO MONITOR.
[2018-10-10 05:54] LABS: HEMOGLOBIN 7.8 gm/dL (14.0-18.0); MCH 27.5 pg (26.0-34.0); MCHC 31.2 g/dL (28.0-37.0); RBC 2.84 mil/uL (4.50-6.00); RDW 18.1 % (10.5-14.5); WBC 11.5 thou/uL (4.0-11.0)
[2018-10-10 06:00] LABS: CALCIUM 9.3 mg/dL (8.5-10.1); MAGNESIUM 2.8 mg/dL (1.8-2.4); POTASSIUM 4.3 mmol/L (3.5-5.1)
[2018-10-10 06:12] LABS: CREATININE 8.5 mg/dL (0.7-1.3)
[2018-10-10 07:58] VITALS: BP 131/61
--- NOTE | 2018-10-10 14:50 | NUR ---
PT IS TO HAVE SURGERY TOMORROW BY DR. MARCANO. CM TO FOLLOW INDICATED WITH DC PLANNING.
[2018-10-10 15:14] VITALS: BP 124/56
--- NOTE | 2018-10-10 19:39 | NUR ---
ASSUMED CARE OF PT AT APPROX 0700. MONITORED ON TELE. VSS. ASSESSMENT CHARTED. FOLLOWED POC. PT TO HAVE SURGERY IN AM. PT AWARE OF NPO AFTER MIDNIGHT. PT AND MOTHER UPDATED ON POC. NEEDS LOTS OF ENCOURAGEMENT TO TURN AND DO ANY ACTIVITY. PT MAKING SLOW PROGRESS TOWARDES POC.
[2018-10-10 19:56] VITALS: BP 151/71
[2018-10-11] VITALS (8 sets, daily range): BP systolic 110–151; BP diastolic 53–76
[2018-10-11 05:36] LABS: HEMOGLOBIN 7.9 gm/dL (14.0-18.0); MCH 27.7 pg (26.0-34.0); MCHC 31.7 g/dL (28.0-37.0); MCV 87.2 fL (80.0-100.0); RBC 2.87 mil/uL (4.50-6.00); RDW 18.2 % (10.5-14.5); WBC 11.6 thou/uL (4.0-11.0)
--- NOTE | 2018-10-11 05:43 | NUR ---
PT AOX4 AND WAS ABLE TO GET SOME SLEEP THIS SHIFT. PT WAS TURNED Q2-3 HOURS. NO S/S OF ACUTE DISTRESS. PT IS SCHEDULED FOR DIALYSIS AND BACK Sx IN THE AM. NO QUESTIONS OR CONCERNS AT THIS TIME. WILL CONTINUE TO MONITOR.
[2018-10-11 05:46] LABS: CALCIUM 9.3 mg/dL (8.5-10.1); MAGNESIUM 2.9 mg/dL (1.8-2.4); POTASSIUM 4.6 mmol/L (3.5-5.1)
[2018-10-11 05:47] LABS: CREATININE 10.3 mg/dL (0.7-1.3)
--- NOTE | 2018-10-11 08:52 | NUR ---
WOUND CONSULT: PT. WAS SEEN ON 10/10/[address] UGALDE AND MYSELF. PT. HAS AN UNSTAGABLE PRESSURE ULCER TO HIS RIGHT BUTTOCK. PT. COMPLAINS OF A GREAT DEAL OF BACK PAIN WITH ANY TYPE OF MOVEMENT. DUE TO THIS FACTOR PATIENT HAS BEEN LYING FLAT ON HIS BACK IN BED. PT. RECENTLY HAD SURGERY ON HIS KNEE AND HAS NOT BEEN CLEARED FOR AMBULATION YET AND HAS BEEN HAVING TO UTLIZE THE BEDPAN WELL FOR BOWL MOVEMENTS. RECOMMENDATIONS: WOUND CARE TO RIGHT BUTTOCK: GENTLY CLEANSE WITH WOUND CLEANSER OR NORMAL SALINE, APPLY SILVADENE/MORPHINE COMPOUND TO WOUND BED, COVER WITH XEROFORM, ABD, SECURE WITH TAPE, COMPLETE CARES BID. PT. AND STAFF NURSE WERE INSTRUCTED ON PLAN OF CARE.
--- NOTE | 2018-10-11 09:19 | NUR ---
Follow Up: Decompression of lumbar spine scheduled for today. Diet currently NPO. Previous diet carb controlled, secondary renal. BG 46-205, on lispro and glargine. Unstageable P/U on right buttock, will send Richie supplement. States appetite is good with consistent 50% intake. 100% Nepro x1 daily. Does note really like Nepro, encouraged to continue drinking for added nutriton. Pt agreed. Last wt 298 lbs, 2.7% loss x1.5 weeks. On HD, could be fluid related or bedscale error. Will request reweigh and monitor wt for trends. With interventions in place, continue at low risk.
--- NOTE | 2018-10-11 16:24 | NUR ---
PT HAD SURGERY THIS DAY. CM HAD SPOKEN WITH PT AND FAMILY PREVIOUSLY ABOUT PROSPECT OF POSSIBLE LTAC STAY UPON DC AND THEY HAD BEEN RECEPTIVE. CM TO REVISIT AND POSSIBLE SEND REFERRAL TO [facility]. CM TO FOLLOW INDICATED WITH DC PLANNING.
--- NOTE | 2018-10-11 21:10 | NUR ---
Pt was on NPO from midnight last night for back surgery this am. No insulin and PO medication except metorpolol were put on hold. Pt was still in pain but would be very lethargic and sleepy. Pt had a right buttocks pressure ulcer, pt refused to turn for wound care and a picture, endorsed this to the night nurse for ccompletion. Procedure was completed late in the pm, then right after dialysis started in pt's room. Pt is to start on clear liquids, IV medication to be wendy after dialysis, endoersed this to the night nurse. Informed the pt that he needed to be turned ever 2 hours. POC followed.,
[2018-10-12 03:50] VITALS: BP 148/64
[2018-10-12 07:34] VITALS: BP 96/54
--- NOTE | 2018-10-12 07:46 | NUR ---
Assumed care at 1845. Pt resting in bed. AOX4. VSS. Pt complaining of back pain. Gave fentanyl twice. Turn Q2. Applied silver sulfadiazine on Left and right buttocks. Wound pictures taken. No identified needs at the moment. Will continue to monitor.
[2018-10-12 08:26] VITALS: BP 145/88
[2018-10-12 09:14] VITALS: BP 98/56
--- NOTE | 2018-10-12 13:48 | NUR ---
DISCHARGE PLANNING. POSSIBLE LTAC STAY REQUIRED AT DISCHARGE. PATIENT REFERRAL FAXED TO [facility], VERIFIED REFERRAL RECEIVED. UNIT SW TO NOTIFY [facility] OF REFERRAL AND PATIENTS DISCHARGE NEEDS. FOLLOWING TO ASSIST WITH DISCHARGE PLACEMENT.
[2018-10-12 14:58] VITALS: BP 126/48
--- NOTE | 2018-10-12 15:15 | NUR ---
WOUND FOLLOW UP: PT. WAS SEEN TODAY BY DR. UGALDE AND MYSELF. PT. WOUND IS UNCHANGED AT THIS TIME. PT. IS STILL IN A GREAT DEAL OF BACK PAIN AND ISN'T MOVING. RECOMMENDATIONS: CONTINUE WITH CURRENT PLAN OF CARE. PT. AND STAFF NURSE WERE INSTRUCTED ON PLAN OF CARE.
[2018-10-12 20:15] VITALS: BP 140/85
--- NOTE | 2018-10-12 20:21 | NUR ---
PT A&O, VSS, PAIN IN BACK BEING MANAGED WITH MEDICATION. PT HAS BEEN BEDFAST TODAY, LETHARGIC, EASILY ARROUSED AND COOPERATIVE CAN BE. PT HAD A HARD TIME WITH Q2 TURNS AND REFUSED MAJORITY. TEMP EARLY AM 101.5, TYLENOL GIVEN, TEMP DOWN TO 98.8. PT HAD AN EPISODE OF HYPOGLYCEMIA, DEXTROSE IV PUSH GIVEN, BS 147 AT LAST CHECK AT 1820. PT STABLE NO SIGNS OF DISTRESS. WILL CONTINUE TO MONITOR.
[2018-10-13] VITALS: BP 132/70
[2018-10-13 04:49] LABS: ABSOLUTE NEUTROPHILS 11.9 thou/uL (1.4-8.2); BASOPHILS 0.4 % (0.0-2.0); EOSINOPHILS 0.6 % (0.0-3.0); HEMATOCRIT 23.2 % (42.0-52.0); HEMOGLOBIN 7.3 gm/dL (14.0-18.0); LYMPHOCYTES 12.6 % (24.0-44.0); MCH 27.9 pg (26.0-34.0); MCHC 31.6 g/dL (28.0-37.0); MCV 88.4 fL (80.0-100.0); MONOCYTES 7.6 % (1.0-8.0); PLATELET COUNT 388 thou/uL (150-400); POLYS 78.8 % (36.0-66.0); RBC 2.63 mil/uL (4.50-6.00); RDW 18.3 % (10.5-14.5); WBC 15.1 thou/uL (4.0-11.0)
[2018-10-13 05:02] LABS: CALCIUM 9.8 mg/dL (8.5-10.1); CREATININE 10.3 mg/dL (0.7-1.3); POTASSIUM 5.8 mmol/L (3.5-5.1)
[2018-10-13 08:50] VITALS: BP 144/72
--- NOTE | 2018-10-13 10:26 | NUR ---
progress pt not progressing refuses treatment, refused to turn refused medications, slept all shift. had left arm through siderail and was in sitting position requested to be laid flat and i asked him to move his arm out of the guardrail and he refused so unable to lay flat without hurting arm with bed. vss, acccubaecks wnl. to have dialysis in am. requested if Physical therapy in to see pt if they got him out of bed to ask them to zero bed so an accurate weight could be obtained. continue to monitor.
--- NOTE | 2018-10-13 10:36 | O ---
[facility] [place] [address] OPERATIVE REPORT Name: GARZACOLIN Olu HOPKINS Room #: 455-P ADM IN M.R.#: [id number] Admission: 09/26/18 ������������������ Attend Phys: Herbie Perez MD Discharge: ������������������ Date of : 70 Report #: [id number] THIS REPORT FOR: //name// CC: Mendel Peterson NO LULU Perez DATE OF SERVICE: 10/11/2018 PREOPERATIVE DIAGNOSIS: Herniated lumbar disk, L4-L5 level with associated diskitis and associated spinal stenosis. POSTOPERATIVE DIAGNOSIS: Herniated lumbar disk, L4-L5 level with associated diskitis and associated spinal stenosis. PROCEDURE: Decompressive laminectomy, L4 and decompressive laminectomy, L5 and diskectomy, L4-L5 level. SURGEON: Sumanth Bender MD INDICATIONS: This obese 48-year-old gentleman with multiple chronic medical problems including chronic renal failure and chronic dialysis has had chronic problems with back and leg pain and underwent previous microscopic diskectomy procedures at both L4-L5 and L5-S1 levels several years ago. He has had persistent back and leg symptoms. MRI study 5 months ago revealed rather significant stenosis as well as an apparent progressive disk herniation at L4-L5. He was treated conservatively at that time. Now, he is admitted with multiple other problems including sepsis, urosepsis, infected left knee and infected right hand with MRI evidence of possible L4-L5 diskitis in addition to the longstanding disk herniation and stenosis. His sepsis has been improved with IV antibiotics. He still has rather significant back pain and bilateral leg pain with some weakness. Given these findings, we have elected to go ahead with decompressive laminectomy for correction of the stenosis and diskectomy at the L4-L5 level. I have explained at great length with the patient and his family that he is at significant risk for postoperative problems given his obesity and multiple comorbidity problems. DESCRIPTION OF PROCEDURE: The patient was taken to the operating room where he was placed under general anesthesia. He was continued on his preoperative intravenous antibiotic regimen. He was turned to the prone position. A right buttock decubitus was cleansed and redressed. The low back was then meticulously prepped and draped. A skin incision was made in the midline overlying the L4 and L5 spinous process. This was carried through the subcutaneous tissues and fascia and the paraspinal muscles were retracted bilaterally. The exposure was advanced to include the lamina of L4 and L5. This was confirmed with C-arm views. A decompressive laminectomy was then [address] [address] OPERATIVE REPORT Name: COLIN GARZA Olu Room #: 455-P [facility] IN [facility].#: [id number] Admission: 09/26/18 ������������������ Attend Phys: Herbie Perez MD Discharge: ������������������ Date of : 70 Report #: [id number] performed removing the spinous process and lamina of both L4 and L5 bilaterally. This was confirmed again with C-arm views. The canal was quite narrow at the L4-L5 level. This is related to bony hypertrophy and ligamentum hypertrophy as well as some disk bulging. There is also significant scarring on the right side where I believe he has had a previous microdiskectomy at that level. I felt further dissection through the area of dense scarring on the right side would probably result in more nerve root damage. The dissection was easier on the right side and the disk there was identified and found to be moderately prominent. The disk was opened and a good deal of degenerative disk debris was removed. The material appears necrotic and slightly fluid suggestive of either severe degeneration or possible infectious diskitis. There was, however, no purulence and there was no surrounding fluid collection and no abscess. A good deal of this loose fluid degenerative disk debris was removed. A specimen was sent to the pathology department and also a specimen sent for culture. The disk space was thoroughly debrided. An intraoperative x-ray was obtained with a probe in the disk space confirming that I was at the L4-L5 level. The entire wound was aggressively and copiously irrigated with antibiotic solution. The canal was probed proximally and distally, and both to the right and the left side, no other areas of significant impingement or stenosis were identified. Good hemostasis was established with cottonoids, thrombin and Gelfoam. Once the wound was dry and quiet, all Gelfoam was removed. A small amount of thrombin was left in the wound to promote further hemostasis. The deeper tissues were closed with 0 Vicryl. The fascia was closed with 0 Vicryl. The more superficial tissues were closed with 0 Monocryl. The skin was closed with skin dary. A sterile dressing was applied. The patient was awakened and returned to the recovery room in good condition. ��������������������������������������������� <ELECTRONICALLY SIGNED> ���������������������������������������� By: Sumanth Bender MD ��������������������������������������������� 10/13/18 1036 [id number] 1553 Sumanth Bender MD /nt
--- NOTE | 2018-10-13 11:06 | PATH ---
[facility] [address] [place] [address] PATHOLOGY RPT PROCEDURE Name: TRISTAN GARZA II Room #: 455-P [facility] IN M.R.#: [id number] ������������������ Admission: 09/26/18 ������������������ Date of : 70 Discharge: Report #: [id number] Path Case #: [id number] [facility] Accession Number: [id number] . 01 Material submitted: . vertebral column - L4-5 DISC . 01 Clinical history: . Lumbar stenosis . 02 Diagnosis: L4-5 disc, discectomy: - Fragments of cartilage and dense fibrous tissue with moderate acute and chronic inflammation, compatible with discitis. (IUV/db; 10/12/2018) LBQ/10/13/2018 . 02 Electronically signed: . Bhumi Beltran MD, Pathologist NPI- [id number] . 01 Gross description: . Received in formalin labeled "Jerry HOPKINS Tristan, L4-5 disc," are several pieces of glistening, fibrous tissue measuring 2.5 x 1.9 x 0.6 cm in aggregate dimensions, containing small fragments of possible bone. The tissue submitted representatively in cassette A1, following decalcification. (TSD; 10/11/2018) TOB/TOB . 02 Pathologist provided ICD-10: M48.061 . 02 CPT . 737787, [id number] Specimen Comment: A courtesy copy of this report has been sent to Specimen Comment: [phone], . Specimen Comment: Report sent to / DR PERRIN Performed at: [address], [place], [place] [id number] MD Parag Silva MD Phone: [phone] Performed at: [address] [id number] MD Bhumi Beltran MD Phone: [phone]
[2018-10-13] MEDS ORDERED: TOPROL XL25 MG PO (12:19)
[2018-10-13] MEDS ORDERED: PROCRIT20000 UNIT IV PUSH (12:19)
[2018-10-13] MEDS ORDERED: AMLODIPINE BESY10 MG PO (12:19)
[2018-10-13] MEDS ORDERED: TRIPHROCAPS SOFT1 MG PO (12:19)
[2018-10-13] MEDS ORDERED: RIFAMPIN 300 M300 MG PO (12:19)
[2018-10-13] MEDS ORDERED: HEPARIN SO5000 UNIT/ SUBQ (12:19)
[2018-10-13] MEDS ORDERED: LACTULOSE20 GM/30 M PO (12:19)
[2018-10-13] MEDS ORDERED: VAN500AD IV (12:19)
[2018-10-13] MEDS ORDERED: RENVELA800 MG PO (12:19)
[2018-10-13] MEDS ORDERED: LIDOPATCH1 EACH TRANSDERM (12:19)
--- NOTE | 2018-10-13 14:20 | NUR ---
[facility] VISITED WITH PT THIS AM. SHE INDICATED THAT THEY ARE ABLE TO ACCEPT PT FOR ADMISSION. CARE TEAM INDICATED THAT PT IS MEDICALLY STABLE TO DISHCARGE THIS DAY. THEY ARE ABLE TO ACCEPT PT THIS DAY. CM NOTIFIED PT AND FAMILY AND THEY ARE AWARE AND AGREEABLE. CHART COPY ORDERED. ORDERS HAVE BEEN FAXED. REPORT TO BE CALLED TO . [facility] SET UP FOR 1829. NO OTHER CM INTERVENTION INDICATED AT THIS TIME. CASE CLOSED.
[2018-10-13 14:32] VITALS: BP 113/63
--- NOTE | 2018-10-13 16:06 | NUR ---
WOUND FOLLOW UP: PT. WAS SEEN TODAY BY DR. UGALDE AND MYSELF. PT. WOUND IS STABLE WITH SOME CLINICALLY DIFFERENCE NOTED TOWARDS HEALING. RECOMMENDATIONS: CONTINUE WITH CURRENT PLAN OF CARE. PT. AND STAFF NURSE WERE INSTRUCTED ON PLAN OF CARE.
--- NOTE | 2018-10-13 20:49 | NUR ---
PT A&OX4, VSS, PAIN IN BACK AND MANAGED WITH PO PAIN MEDICATION. PT WAS ALERT TODAY, COOPERATIVE, RESPONSIVE. HE TOLERATED MOVEMENT MORE TODAY. DRESSING ON BILAT BUTTOCKS CHANGED PER ORDERS. PT TRANSFERRED TO [facility]. ALL BELONGINS WITH PT. MOM AT BEDSIDE. DISCHARGE PACKET SENT WITH [facility]. PT LEFT STABLE, NO SIGNS OF DISTRESS. IV AND TELE MONITOR DISCHARGED.
--- NOTE | 2018-10-14 10:13 | HC ---
[facility] [place] [address] CONSULTATION Name: COLIN GARZA II Room #: 455-P [facility] IN M.R.#: [id number] Admission: 09/26/18 ������������������ Attend Phys: Herbie Perez MD Discharge: 10/13/18 ������������������ Date of : 70 Report #: [id number] THIS REPORT FOR: //name// CC: Mendel Peterson NO PCP Herbie Perez DATE OF SERVICE: 10/10/2018 CHIEF COMPLAINT: Pressure ulcer to the right gluteal region. HISTORY OF PRESENT ILLNESS: This is a 48-year-old male patient with a history of type 2 diabetes mellitus as well as end-stage renal disease, requiring hemodialysis, was originally admitted to the hospital with pleuritic type chest pain. He was noted to have severe spinal stenosis and is scheduled to undergo lumbar laminectomy. He was noted to have a pressure ulceration on his right gluteal region and I have been asked to see her with regard to wound care. The patient complains of significant pain with his back. He states he is unable to move very much due to that pain. He denies any recent injuries. PAST MEDICAL HISTORY: Positive for End-stage renal disease requiring hemodialysis, history of diabetes, history of pancreatitis, hypertension, chronic back pain, congestive heart failure, bilateral previous knee surgeries. SOCIAL HISTORY: Negative for alcohol or tobacco use. ALLERGIES: PENICILLINS. MEDICATIONS: Include MiraLax, senna S, loratadine, Zofran, Zoloft, Xanax, PhosLo, Breo, Lyrica, aspirin, Nephrocaps, Flexeril, omeprazole, Percocet, Desyrel, Levemir, Humalog. FAMILY HISTORY: Noncontributory. REVIEW OF SYSTEMS: CONSTITUTIONAL: The patient denies fever, chills, recent weight loss. NEUROLOGICAL: The patient denies focal weakness, numbness or tingling. EYES: The patient denies visual changes, redness or drainage. ENT: The patient denies earache, nasal drainage or sore throat. CARDIOVASCULAR: The patient denies chest pain, palpitations or diaphoresis. PULMONARY: The patient denies cough or shortness of breath. GASTROINTESTINAL: The patient denies nausea, vomiting, diarrhea or abdominal pain. ORTHOPEDIC: The patient admits to significant pain in his low back extending into his legs that is limiting movement. [address] [address] CONSULTATION Name: COLIN GARZA Olu Room #: 455-P [facility] IN M.R.#: [id number] Admission: 09/26/18 ������������������ Attend Phys: Herbie Perez MD Discharge: 10/13/18 ������������������ Date of : 70 Report #: [id number] Other systems in a 14-point review of systems are negative. PHYSICAL EXAMINATION: VITAL SIGNS: At this time include temperature 37.6, pulse 66, respiratory rate of 20, blood pressure 151/71. GENERAL: This is a chronically ill-appearing male patient who appears to be in moderate distress. HEENT: Head normocephalic. Nose and throat clear. NECK: Supple. LUNGS: Clear. ABDOMEN: Soft. Bowel sounds are present. BACK: Demonstrates what appears to have a Lidoderm patch in his lumbar region. The gluteal region demonstrates an area of tissue breakdown on the right buttock. There is what appears to be some thin eschar and a little bit of subcutaneous tissue exposed. It is not overtly infected. Sacral and ischial regions are clear. EXTREMITIES: Lower extremities demonstrate the heels are intact. CLINICAL IMPRESSION: 1. Unstageable pressure ulcer to the right buttock. 2. End-stage renal disease, requiring hemodialysis. 3. Severe spinal stenosis. 4. Hypertension. 5. Diabetes mellitus. RECOMMENDATIONS: At this point in time, we recommend Silvadene and Xeroform gauze followed by ABD to the affected area. This may require some additional debridement. He is, however, scheduled for a lumbar surgery in the morning. He will need a low air loss mattress, q. 2 hour turning and repositioning, PRAFO boots would be beneficial as well for pressure prophylaxis while in bed. We will recommend continuation of all medications. He will need nutritional support to maximize wound healing. I appreciate being asked to see him in consultation. ��������������������������������������������� <ELECTRONICALLY SIGNED> ���������������������������������������� By: Stanley Camejo MD ��������������������������������������������� 10/14/18 1013 0739 05 Stanley Camejo MD /nt
--- NOTE | 2018-10-17 11:42 | O ---
[facility] [place] [address] OPERATIVE REPORT Name: TRISTAN GARZA II Room #: 455-P [facility] IN M.R.#: [id number] Admission: 09/26/18 ������������������ Attend Phys: Herbie Perez MD Discharge: 10/13/18 ������������������ Date of : 70 Report #: [id number] THIS REPORT FOR: //name// CC: Mendel Peterson NO PCP Herbie Perez PREOPERATIVE DIAGNOSES: Right hand dorsal abscess, septic left knee. POSTOPERATIVE DIAGNOSES: 1. Right hand dorsal abscess. 2. Septic left knee with lateral meniscus tear, chondromalacia of patellofemoral joint grade 3, chondromalacia of lateral femoral condyle grade 2, chondromalacia of medial tibial plateau grade 2. PROCEDURE PERFORMED: 1. Open right hand irrigation and debridement of dorsal hand abscess. 2. Left knee arthroscopy with partial lateral meniscectomy, chondroplasty, and arthroscopic irrigation and synovial debridement. SURGEON: Tristan Kim MD [employer]OCKRO[employer] SELECTOR: Chelsey Alonzo PA-C ANESTHESIA: General. FLUIDS: Please see anesthesia records. ESTIMATED BLOOD LOSS: Less than 5 mL. SPECIMENS: 1. Right hand dorsal abscess, fluid sent for culture and sensitivity. 2. Left knee synovial fluid, sent for culture and sensitivity, cell count with differential and Gram stain. DESCRIPTION OF PROCEDURE: After proper identification of the patient and the operative sites by myself, the operative sites were signed. The patient has originally been seen by my partners, Dr. Bender and Dr. Peters and due to OR availability, I was able to perform the above procedures to help expedite his care. We reviewed the risks, benefits, alternatives and potential complications of his potentially septic limbs and his overall health status and potential need for further orthopedic intervention and/or operative care. Questions were encouraged, all were answered. No family was at bedside. Dr. Tong Curiel has already been consulted with Infectious Disease. We reviewed the patient's MRI and synovial fluid analysis from his prior aspiration. He wished to proceed with the above. The patient was brought back to the operative suite. After induction of satisfactory general anesthesia, the right hand was approached [address] [address] OPERATIVE REPORT Name: TRISTAN GARZA Room #: 455-P [facility] IN .R.#: [id number] Admission: 09/26/18 ������������������ Attend Phys: Herbie Perez MD Discharge: 10/13/18 ������������������ Date of : 70 Report #: [id number] first. This was sterilely prepped and draped and no tourniquet was utilized. A small incision overlying the abscess noted on the MRI was planned. This was under a centimeter in length. Full-thickness skin flaps were developed over the abscess in the 4 and 5 interspace along the metacarpals. At this point, hemostat was used to open the area of the abscess where a small amount of semi-purulent fluid was expressed and 2 cultures were obtained and sent for analysis. The subcutaneous tissues were then bluntly dissected, no devitalized tissue was noted and after the area of the abscess had been broken up, antibiotic irrigant delivered with an Angiocath was used to thoroughly irrigate this area. No extensor tendons were exposed with this incision and a small amount of iodoform quarter-inch gauze packing was placed on this, this was then sterilely dressed. At this point, separate instruments, gown and glove draping was utilized for the knee. It was elevated for exsanguination and a tourniquet was inflated. At this point, a superior medial portal was created. A small cannula was inserted. Joint fluid was then expressed, which was semi-cloudy in nature, primarily serous looking however, and this was sent for synovial fluid analysis and cultures and sensitivity as well as Gram stain. At this point, an anteromedial and anterolateral portals were created and mild synovial irritation was noted within the suprapatellar pouch, medial and lateral gutters, some mild fibrinous debris was removed arthroscopically. Patellofemoral joint revealed some diffuse chondromalacia and high-grade chondral thinning of the patella for approximately 15-20 mm in area. There was also some approximate 50% thickness chondral loss in the more central aspect of the trochlea. Chondroplasty was performed in this region. The gutters and suprapatellar pouch had been cleared. Examination of the medial compartment revealed some very mild fibrillation of the chondral tissue, but the meniscus was intact and stable to probing. Anterior and posterior cruciate ligaments had some fibrinous debris around them and abundant hyper-synovium, which was carefully debrided. ACL and PCL were otherwise intact. Lateral compartment of the knee revealed a complex tear of the posterior horn of the lateral meniscus which was debrided with a combination of hand and motorized instrumentation was some mild chondromalacia and degenerative findings noted in the lateral tricompartmental. All recesses and compartments were carefully identified and attempted to be debrided as best as possible and again in gross observation, there was some mild inflammation and changes, but this did not appear to have on gross examination more advanced findings of either inflammation or infection. These findings were discussed with Dr. Tong Curiel in the recovery room and the knee after it was thoroughly irrigated with normal saline, small amount of Naropin was injected around the skin incisions to aid in postoperative pain control. These were closed with simple nylon stitches. Sterile dressing was applied. He was awakened and transferred to the recovery room in stable condition. The patient will be [facility] [address] [place] [address] OPERATIVE REPORT Name: TRISTAN GARZA II Room #: 455-P [facility] IN M.R.#: [id number] Admission: 09/26/18 ������������������ Attend Phys: Herbie Perez MD Discharge: 10/13/18 ������������������ Date of : 70 Report #: [id number] followed postoperatively this week with one of my partner and call Dr. Elliot Altamirano. Qualified nurse assistant utilized throughout the entire procedure. ��������������������������������������������� <ELECTRONICALLY SIGNED> ���������������������������������������� By: Tristan Kim MD ��������������������������������������������� 10/17/18 1142 1257 1623 Tristan Kim MD /nt
== END 2018-10-13 19:30 | DRG 853 ==
LOC: 4W 19:51
PROVIDERS: Hospitalist; Internal Medicine; Internal Medicine Nephrology; Nurse Practitioner Family; Specialist; ADMIT Internal Medicine
PROC: 5A1D70Z Performance of Urinary Filtration, Intermittent, Less than 6 Hours Per Day (ICD-10-PCS; principal; 2018-09-27)
PROC: 5A1D70Z Performance of Urinary Filtration, Intermittent, Less than 6 Hours Per Day (ICD-10-PCS; 2018-09-29)
PROC: 5A1D70Z Performance of Urinary Filtration, Intermittent, Less than 6 Hours Per Day (ICD-10-PCS; 2018-10-02)
PROC: 5A09357 Assistance with Respiratory Ventilation, Less than 24 Consecutive Hours, Continuous Positive Airway Pressure (ICD-10-PCS; 2018-10-03)
PROC: 5A1D70Z Performance of Urinary Filtration, Intermittent, Less than 6 Hours Per Day (ICD-10-PCS; 2018-10-04)
PROC: 5A1D70Z Performance of Urinary Filtration, Intermittent, Less than 6 Hours Per Day (ICD-10-PCS; 2018-10-06)
PROC: 0S9D3ZZ Drainage of Left Knee Joint, Percutaneous Approach (ICD-10-PCS; 2018-10-06)
PROC: 0SBD4ZZ Excision of Left Knee Joint, Percutaneous Endoscopic Approach (ICD-10-PCS; 2018-10-06)
PROC: 0JDJ0ZZ Extraction of Right Hand Subcutaneous Tissue and Fascia, Open Approach (ICD-10-PCS; 2018-10-06)
PROC: 5A1D70Z Performance of Urinary Filtration, Intermittent, Less than 6 Hours Per Day (ICD-10-PCS; 2018-10-09)
PROC: 30233N1 Transfusion of Nonautologous Red Blood Cells into Peripheral Vein, Percutaneous Approach (ICD-10-PCS; 2018-10-09)
PROC: 0SB20ZZ Excision of Lumbar Vertebral Disc, Open Approach (ICD-10-PCS; 2018-10-11)
PROC: 5A1D70Z Performance of Urinary Filtration, Intermittent, Less than 6 Hours Per Day (ICD-10-PCS; 2018-10-11)
PROC: 00NY0ZZ Release Lumbar Spinal Cord, Open Approach (ICD-10-PCS; 2018-10-11)
PROC: 5A1D70Z Performance of Urinary Filtration, Intermittent, Less than 6 Hours Per Day (ICD-10-PCS; 2018-10-13)
DX: A41.02 Sepsis due to Methicillin resistant Staphylococcus aureus (principal); N18.6 End stage renal disease; N39.0 Urinary tract infection, site not specified; G93.40 Encephalopathy, unspecified; I42.9 Cardiomyopathy, unspecified; I13.2 Hypertensive heart and chronic kidney disease with heart failure and with stage 5 chronic kidney disease, or end stage renal disease; L02.511 Cutaneous abscess of right hand; I50.32 Chronic diastolic (congestive) heart failure; M46.26 Osteomyelitis of vertebra, lumbar region; M00.9 Pyogenic arthritis, unspecified; L03.113 Cellulitis of right upper limb; E11.22 Type 2 diabetes mellitus with diabetic chronic kidney disease; G89.4 Chronic pain syndrome; S62.606A Fracture of unspecified phalanx of right little finger, initial encounter for closed fracture; E11.42 Type 2 diabetes mellitus with diabetic polyneuropathy; F32.9 Major depressive disorder, single episode, unspecified; F41.9 Anxiety disorder, unspecified; K59.00 Constipation, unspecified; E66.9 Obesity, unspecified; G47.33 Obstructive sleep apnea (adult) (pediatric); L98.419 Non-pressure chronic ulcer of buttock with unspecified severity; S83.282A Other tear of lateral meniscus, current injury, left knee, initial encounter; M94.29 Chondromalacia, multiple sites; M46.46 Discitis, unspecified, lumbar region; J45.909 Unspecified asthma, uncomplicated; E11.69 Type 2 diabetes mellitus with other specified complication; D63.8 Anemia in other chronic diseases classified elsewhere; K58.1 Irritable bowel syndrome with constipation; H54.62 Unqualified visual loss, left eye, normal vision right eye; M48.061 Spinal stenosis, lumbar region without neurogenic claudication; Z79.891 Long term (current) use of opiate analgesic; Z99.2 Dependence on renal dialysis; Z91.19 Patient's noncompliance with other medical treatment and regimen; Z83.3 Family history of diabetes mellitus; Z82.49 Family history of ischemic heart disease and other diseases of the circulatory system; Z88.0 Allergy status to penicillin; Z68.39 Body mass index [BMI] 39.0-39.9, adult; Z90.49 Acquired absence of other specified parts of digestive tract; W18.39XA Other fall on same level, initial encounter; Y93.89 Activity, other specified; Y92.89 Other specified places as the place of occurrence of the external cause; Y99.8 Other external cause status
CPT/HCPCS: 10045; 32100; 50010; 50101; 50386; 50402; 50704; 50850; 51038; 51412; 51445; 52313; 54170; 56525; 56527; 57091; 57103; 57180; 62110; 62900; 70005

== ENCOUNTER 2018-11-17 18:43 | Inpatient (IN) | payer OTHER ==
[~2018-11-17] VITALS: Ht 185.4 cm; Wt 112.5 kg
--- NOTE | ~2018-11-17 | HC ---
[facility] [place] [address] CONSULTATION Name: KALYACOLINMERNA Raines II Room #: 460-P [facility] IN .R.#: [id number] Admission: 11/17/18 ������������������ Attend Phys: Mendel Peterson MD Discharge: ������������������ Date of : 70 Report #: [id number] THIS REPORT FOR: //name// CC: Mendel ORO PCP DATE OF SERVICE: 11/18/2018 REASON FOR PRESENTATION: Post fall. HISTORY OF PRESENT ILLNESS: Well-known patient to me. He has end-stage renal disease, maintained on hemodialysis every Tuesday, Tuesday and Tuesday. I saw him in the Dialysis Unit yesterday. Apparently, there had been some issues with handling his Rebekah lift yesterday and he fell off the Rebekah lift on the chair. He started to have some back pain after that. The patient is known to have MRSA bacteremia, diskitis, osteomyelitis status post decompression at L4 and L5. He now resides in a nursing facility. He was admitted to further evaluate his back issues. I am being consulted to manage his end-stage renal disease. PAST MEDICAL HISTORY: 1. Diabetes mellitus. 2. Hypertension. 3. Recent MRSA bacteremia. 4. Recent laminectomy. 5. Peripheral vascular disease. 6. Recent septic arthritis. MEDICATIONS: 1. Aspirin. 2. Insulin. 3. Calcium acetate. 4. Omeprazole. SOCIAL HISTORY: He resides in a rehab facility. No drug or alcohol abuse. FAMILY HISTORY: Significant for diabetes mellitus. REVIEW OF SYSTEMS: GENERAL: No fever or chills. CARDIOVASCULAR: No chest pain or palpitation. PULMONARY: No cough or hemoptysis. GASTROINTESTINAL: No nausea or vomiting. MUSCULOSKELETAL: As per the history of present illness. SKIN: No rash or ulcerations. PHYSICAL EXAMINATION: [facility] [address] [place] [address] CONSULTATION Name: GARZACOLIN Room #: 460-P [facility] IN [facility]#: [id number] Admission: 11/17/18 ������������������ Attend Phys: Mendel Peterson MD Discharge: ������������������ Date of : 70 Report #: [id number] GENERAL: Alert, oriented, in no apparent distress. VITAL SIGNS: Temperature 36.9, blood pressure 146/75. Pulse ox is 93 on room air, pulse rate is 76. HEAD AND NECK: No jugular venous distention. CHEST: No crackles. CARDIOVASCULAR: No rub detected. ABDOMEN: Soft, nontender. LOWER EXTREMITIES: No edema. BACK: Tender lower back. LABORATORY DATA: Reviewed. Hemoglobin is 7. Chemistry showed sodium of 137, potassium 4, BUN of 23 and a creatinine of 6.7, calcium of 10.3. ASSESSMENT, IMPRESSION, PLAN: 1. End-stage renal disease. 2. Recent laminectomy and diskitis. 3. Methicillin-resistant Staphylococcus aureus bacteremia. 4. As far as the dialysis is concerned, the patient will be arranged to have his hemodialysis every Tuesday, Tuesday and [place]. 5. He has finished a course of antibiotic for his diskitis, status post laminectomy and is now residing in a nursing facility. We will defer the management of his back pain issues, further imaging to the primary team. 6. Resume his binders. 7. Resume his blood pressure and blood sugar medication. ��������������������������������������������� ���������������������������������������� By: ��������������������������������������������� [id number] Grey Martinez MD /nt
[~2018-11-17 18:43] MED LIST changes: +HEPARIN SO5000 UNIT/ SUBQ; +LACTULOSE20 GM/30 M PO; +LIDOPATCH1 EACH TRANSDERM; -LYRICA 75 MG CA75 MG PO; +PROCRIT20000 UNIT IV PUSH; +RENVELA800 MG PO; +RIFAMPIN 300 M300 MG PO; +TOPROL XL25 MG PO; +TRIPHROCAPS SOFT1 MG PO
[2018-11-17 20:30] VITALS: BP 131/76
--- NOTE | 2018-11-18 01:03 | NUR ---
PATIENT ARRIVED VIA STRETCHER WITH EMERGENCY PERSONNEL X2 FROM [facility] AT 2014. ALERT AND ORIENTED X4 WITH MOTHER AND DAUGHTER AT BEDSIDE.
[2018-11-18 04:30] VITALS: BP 146/75
--- NOTE | 2018-11-18 04:50 | NUR ---
PATIENT ALERT AND ORIENTED X4. REMAINS IN BED AND STATED THAT HE IS VERY WEAK. TWO ASSIST TO HELP PATIENT TURN IN BED HE HAS MUCH BACK PAIN. MEDICATED WITH MORPHINE IVP AND MUSCLE RELAXER. BS MONIORED PER ORDER. DIALYSIS DONE TUESDAY BEFORE BEING TRANSFERRED FROM [facility]. LEFT UPPER ARM FISTULA WITH BRUITT AND THRILL AND DRESSING IS D/I. WOUNDS TO LOWER BACK AND BUTTOCK, PICTURES TAKEN AND IN CHART. WILL MONITOR. RESTING AT TIME OF NOTE.
[2018-11-18 05:10] LABS: HEMATOCRIT 27.7 % (42.0-52.0); HEMOGLOBIN 8.7 gm/dL (14.0-18.0); MCH 28.2 pg (26.0-34.0); MCHC 31.5 g/dL (28.0-37.0); MCV 89.6 fL (80.0-100.0); RBC 3.09 mil/uL (4.50-6.00); RDW 20.4 % (10.5-14.5)
[2018-11-18 05:15] LABS: CALCIUM 10.3 mg/dL (8.5-10.1); CREATININE 6.7 mg/dL (0.7-1.3)
[2018-11-18 07:26] VITALS: BP 143/81
[2018-11-18 15:39] VITALS: BP 141/90
[2018-11-18 20:06] VITALS: BP 156/84
--- NOTE | 2018-11-18 20:06 | NUR ---
Assumed pt care this am, pt is bed bound and compaints of extreme pain in his lower back. Pt is able to turn with help but needs more time to do so. Pain relief as verbalized by the pt is only partial. Isolation maintained d/t MRSA fx. Pt is anuric, has dialysis MWF, fistula on the left UA. POC followed, all medication taken.
--- NOTE | 2018-11-19 03:02 | NUR ---
patient aox4 makes needs known. patient c/o back pain prn pain meds given per dr. order. patient turned q 2 hours as he can tolerate d/t patient screaming when you try to reposition him. back incision dressing is c/d/i. patient in bed asleep at this time no s/s of pain or discomfort. scd on. patient encouraged fluids. patient in bed asleep at this time breathing regular and unlaboured.
[2018-11-19 04:13] VITALS: BP 178/77
[2018-11-19 06:00] VITALS: BP 158/66
[2018-11-19 08:23] VITALS: BP 138/74
--- NOTE | 2018-11-19 15:18 | NUR ---
TOWARDS POC PT A/O X4, VSS, AFEBRILE. PAIN MANAGED BY MEDS. WOUND CARE AND DRESSING DONE. NO CONCERNS VOICED. WILL CONTINUE TO MONITOR.
--- NOTE | 2018-11-20 06:01 | NUR ---
Pt. rested quietly during the night when checked on during frequent rounds. He c/o back pain and pain meds given (see emar) with some relief noted. Bed alarm is on.
--- NOTE | 2018-11-20 07:15 | HC ---
[place] [address] CONSULTATION Name: GARZACOLIN II Room #: 460-P ADM IN M.R.#: [id number] Admission: 11/17/18 ������������������ Attend Phys: Mendel Peterson MD Discharge: ������������������ Date of : 70 Report #: [id number] THIS REPORT FOR: //name// CC: Mendel ORO PCP DATE OF SERVICE: 11/19/2018 INFECTIOUS DISEASE CONSULTATION ATTENDING PHYSICIAN: Dr. Peterson. REASON FOR CONSULTATION: The patient with known L4-L5 diskitis, vertebral osteomyelitis complicated by intractable back pain. HISTORY OF PRESENT ILLNESS: Chart reviewed, patient examined. This is a 48-year-old well known to our service, has diabetes mellitus that has been complicated by vasculopathy including end-stage renal disease, now on hemodialysis thrice weekly and had a prolonged hospitalization from September to October of this year, diagnosed with MRSA septicemia. This was complicated by probable L4-L5 diskitis, osteomyelitis that was confirmed by biopsy on 10/11/2018, has been on prolonged course of therapy, he reports roughly 11 weeks. He noted did have at least 2 episodes that he thinks contributed to exacerbation of his back pain, which involved a fall, the other of which more of jerking. At this point, he does admit to severe back pain, although he is not writhing in discomfort. He reports some chills, it is not clear if he has had fevers. He states his appetite has been reasonable. He denies any significant pulmonary or gastrointestinal related complaints. Due to the intractable nature of his back pain, he was referred. Initial white count was normal. ALLERGIES: LISTED TO PENICILLIN. CURRENT MEDICATIONS: Include vancomycin 500 mg post dialysis 3 times a week, acetaminophen, insulin glargine, oxycodone, cyclobenzaprine, p.r.n. analgesics and antiemetics. PAST MEDICAL HISTORY: Diabetes mellitus type 2, insulin requiring, which has been complicated by peripheral neuropathy, has diffuse vasculopathy, end-stage renal disease, on hemodialysis. Does have chronic back pain. He is blind in his left eye, severe spinal stenosis. At this point, he is nonambulatory, although he is going through physical therapy. Previous right knee replacement, cholecystectomy, hypertension. SOCIAL HISTORY: Nonsmoker, no ethanol, no illicit drug use. FAMILY HISTORY: Noncontributory. [address] [address] CONSULTATION Name: COLIN GARZA Olu Room #: 460-P [facility] IN [facility].#: [id number] Admission: 11/17/18 ������������������ Attend Phys: Mednel Peterson MD Discharge: ������������������ Date of : 70 Report #: [id number] REVIEW OF SYSTEMS: Otherwise unremarkable 10-point review of systems with exception of the above. PHYSICAL EXAMINATION: GENERAL: He is alert. He is lying in a left lateral decubitus position. He states this is essentially only when that he gets some relief of his pain. He is lucid, perhaps mildly malnourished. He is in mild to moderate distress. VITAL SIGNS: Temperature 98.5, pulse 66, respirations 20, blood pressure 150/66. SKIN: Warm, dry, no rashes. HEENT: Normocephalic. Extraocular muscles intact. NECK: Supple. LUNGS: Generally clear to auscultation. HEART: Regular. I do not appreciate a murmur. ABDOMEN: Mildly distended, soft. There are no peritoneal signs. BACK: Has a longitudinally oriented incision. There is some superficial ulcer at the mid-point of the incisional scar. GENITOURINARY: Deferred. RECTAL: Deferred. LABORATORY DATA: CBC: White count of 7.0, H and H 8.7 and 27.7, platelets of 327. Electrolytes: Sodium 137, potassium 4.0, chloride 98, bicarbonate is 31, anion gap of 8, BUN and creatinine 23 and 6.7. Estimated GFR of 11. Calcium elevated at 10.3. ASSESSMENT: Intractable back pain in a patient with known history of methicillin-resistant Staphylococcus aureus related L4-L5 diskitis with vertebral osteomyelitis. Continue the vancomycin for now. Discussed with Dr. Curiel, would expect would extend that. Did review report from CT lumbar spine shows increasing endplate irregularity and bone destruction at that site. It certainly raises question of considering additional intervention. ��������������������������������������������� <ELECTRONICALLY SIGNED> ���������������������������������������� By: Shane Thompson MD ��������������������������������������������� 11/20/18 0715 [id number] Shane Thompson MD /nt
--- NOTE | 2018-11-20 14:11 | NUR ---
PT ADMITTED RELATED TO EVALUATION FOR BACK SURGERY. CM REVIEWED CHART AND SPOKE WITH CARE TEAM. CM MET WITH PT AT BEDSIDE THIS DAY. PT IS A&O X4. CM ROLE INTRODCUED. PT INDICATED HE HAD BEEN AT [facility] AND THAT HE WAS ANTICIAPTED TO DISCHARGE FROM THERE THIS TUESDAY. PT INDICATED HE HAD BEEN AT [facility] PRIOR TO THAT. PT INDICATED THAT HE WILL NEED A WHEELCHAIR TO ASSIST WITH MOBILITY IF HE IS TO DISCHARGE HOME FROM THE HOSPITAL. PT INDICATED HE LIVES IN A HOUSE WITH A RAMP TO ENTER IN THE BACK. CM TO FOLLOW INDICATED WITH DC PLANNING.
[2018-11-20 15:00] VITALS: BP 159/84
--- NOTE | 2018-11-20 17:47 | NUR ---
WOUND CARE CONSULT; ROUNDING WITH DR TERENCE UGALDE AND FARNAZ HERNÁNDEZ BSN. DR UGALDE DID A SHARP DEBRIDEMENT TO THE RIGHT ISCHIAL TUBEROSITY WOUND USING A 15 BLADE SCALPLY AND A HOT ROLL LAMINATOR TO UNROOF THE WOUND DOWN TO HEALTHY BEEFY RED TISSUE X 2 RECOMMENDATIONS; BOARDERED FOAM DRESSINGS TO THESE WOUNDS. DISCUSSED WITH EDGAR
--- NOTE | 2018-11-20 21:24 | NUR ---
ASSUMED PT CARE THIS AM, PAIN MANAGED WITH MEDICATIONS THERE SEEMS TO BE NO RELIEF. SEEN BY WOUND CARE TEAM, DRESSING CHANGE DONE BY THEM. PT REQUESTED TO SEE KALEE BUT WAS ASLEEP WHEN HE CAME, INFORMED THE NIGHT NURSE. MRI SCHEDULED FOR TOMORROW AM AT 8:30, INFORMED RN AND PT.POC FOLLOWED.
[2018-11-20 21:44] VITALS: BP 175/77
--- NOTE | 2018-11-21 04:25 | NUR ---
ASSUMED CARE OF PT AT 1900HRS. PT IS AOX4 AND CALLS FOR HELP NEEDED. PT REPORTED SOME PAIN AND WAS COMFORTABLE WITH PRN PAIN MEDS. PT WAS ABLE TO GET SOME SLEEP THIS SHIFT. NO OTHER S/S OF ACUTE DISTRESS. WILL CONTINUE TO MONITOR.
[2018-11-21 05:37] LABS: BASOPHILS 0.3 % (0.0-2.0); EOSINOPHILS 6.1 % (0.0-3.0); HEMATOCRIT 26.6 % (42.0-52.0); HEMOGLOBIN 8.3 gm/dL (14.0-18.0); LYMPHOCYTES 22.3 % (24.0-44.0); MCH 27.6 pg (26.0-34.0); MCHC 31.3 g/dL (28.0-37.0); MCV 88.3 fL (80.0-100.0); MONOCYTES 9.9 % (1.0-8.0); PLATELET COUNT 266 thou/uL (150-400); POLYS 61.4 % (36.0-66.0); RBC 3.01 mil/uL (4.50-6.00); RDW 20.2 % (10.5-14.5); WBC 6.5 thou/uL (4.0-11.0)
[2018-11-21 05:52] VITALS: BP 136/36
--- NOTE | 2018-11-21 07:13 | HC ---
[facility] [place] [address] CONSULTATION Name: COLIN GARZA II Room #: 460-P ADM IN M.R.#: [id number] Admission: 11/17/18 ������������������ Attend Phys: Mendel Peterson MD Discharge: ������������������ Date of : 70 Report #: [id number] THIS REPORT FOR: //name// CC: Mendel ORO [facility] DATE OF SERVICE: 11/20/2018 CHIEF COMPLAINT: Chronic back pain with history of spinal stenosis, diskitis and surgical laminectomy and diskectomy. HISTORY OF PRESENT ILLNESS: This 48-year-old gentleman with multiple severe medical problems, is a chronic dialysis patient and was recently admitted with sepsis and lumbar diskitis. He also has a long history of severe degenerative change and marked spinal stenosis. He underwent a decompressive laminectomy and diskectomy on 09/26/2018. Subsequently, he has had significant ongoing back pain as one might expect given this history. He has been in a chronic long-term care facility where he has been receiving dialysis and ongoing pain management. He states he has been unable to ambulate independently, but was able to begin to sit at the bedside and moved with moderate assistance. Recently, he was changed to a new facility. There, he complains that they have been somewhat rough in his transfers and actually may have dropped him when using a Rebekah lift. As a result, he has had more significant back pain and was referred back to [facility] for evaluation. They also performed a CT scan of the low back, which apparently revealed some endplate changes, but no evidence of abscess. At the time of my evaluation, he is undergoing dialysis. He is alert and oriented and seems generally much more comfortable than he was when I last saw him during his last hospital stay. He notes, however, that his back pain, which extends from the mid lumbar region down the buttock and thigh has been persistent and has not improved much over time. He feels the rough handling and fall last week caused some increase in those symptoms. He is not having much numbness, pain or weakness in the lower leg or foot; however, and feels those symptoms were clearly improved following his surgery. His back wound is not inspected today as he is in the midst of dialysis. I understand, however that there is no evidence of a wound problem. He is able to demonstrate only limited movement in low back and moderate movement of both lower extremities due to his general sense of discomfort. He does, however, have good strength and sensation in both feet and ankles. I do not find evidence of a significant neurologic deficit. I note his white count is normal and he is febrile. He is not having fevers or chills nor any other findings, which would suggest sepsis or significant ongoing infection at this point. His previous cultures from his disk decompression did grow out MRSA and so he has been on ongoing IV antibiotic treatment since that time. [address] [address] CONSULTATION Name: GARZACOLIN II Room #: 460-P [facility] IN M.R.#: [id number] Admission: 11/17/18 ������������������ Attend Phys: Mendel Peterson MD Discharge: ������������������ Date of : 70 Report #: [id number] At this point, I doubt there is an abscess or significant fluid collection nor any other problem, which would clearly benefited by further surgery; however, I think since he is here in the hospital, further evaluation with MRI study would be appropriate and helpful. I will follow along with you and comment further once we have a better imaging. At this point, however, I would anticipate we will simply continue with his current antibiotic regimen as directed by Infectious Disease and continue pain management as symptoms require. ��������������������������������������������� <ELECTRONICALLY SIGNED> ���������������������������������������� By: Sumanth Bender MD ��������������������������������������������� 11/21/18 0713 [id number] [id number] Sumanth Bender MD /nt
[2018-11-21 07:43] VITALS: BP 119/62
--- NOTE | 2018-11-21 09:56 | HC ---
[facility] [place] [address] CONSULTATION Name: COLIN GARZA Olu HOPKINS Room #: 460-P ADM IN ..#: [id number] Admission: 11/17/18 ������������������ Attend Phys: Mendel Peterson MD Discharge: ������������������ Date of : 70 Report #: [id number] THIS REPORT FOR: //name// CC: Mendel ORO PCP DATE OF SERVICE: 11/20/2018 CHIEF COMPLAINT: Right gluteal pressure ulceration. HISTORY OF PRESENT ILLNESS: This is a 48-year-old male patient with whom I am familiar from previous hospitalization who has previously been known to have a pressure ulcer to his right buttock. He has a history of end-stage renal disease, diabetes as well as history of recent laminectomy for lower extremity pain. He was last admitted in September for urosepsis with MRSA bacteremia and diskitis and osteomyelitis of L4-L5 and a possible septic left knee. He has been feeling somewhat better since that time. He, however, was apparently dropped while doing a transfer with a Rebekah lift from dialysis. He is here with pain. I have been asked to see him with regard to wound care. PAST MEDICAL HISTORY: Include cholecystectomy, type 2 diabetes mellitus, right knee replacement, chronic kidney disease requiring dialysis, hypertension, chronic low back pain, history of urosepsis, history of severe spinal stenosis, peripheral neuropathy, diabetes and blindness in his right eye. SOCIAL HISTORY: Negative for alcohol or tobacco use. FAMILY HISTORY: Noncontributory. CURRENT ALLERGIES: INCLUDE PENICILLIN. MEDICATIONS: Include Percocet, MiraLax, senna, rifampin, heparin, Procrit, Toprol-XL, lactulose, metoprolol, Renvela, Lidoderm patch, TriphroCaps Softgel, amlodipine, and vancomycin. REVIEW OF SYSTEMS: CONSTITUTIONAL: The patient denies fever, chills or weight loss. NEUROLOGICAL: The patient denies focal weakness, but does have some peripheral neuropathy. ENT: The patient denies earache, nasal drainage or sore throat. CARDIOVASCULAR: The patient denies chest pain, palpitations or diaphoresis. PULMONARY: The patient denies cough or shortness of breath. GASTROINTESTINAL: The patient denies nausea or abdominal pain. ORTHOPEDIC: The patient complains of pain in his low back with pain radiating down his right gluteal region and right lower leg. [address] [address] CONSULTATION Name: COLIN GARZA Olu Room #: 460-P [facility] IN ..#: [id number] Admission: 11/17/18 ������������������ Attend Phys: Mendel Peterson MD Discharge: ������������������ Date of : 70 Report #: [id number] Other systems in a 14-point review of systems are negative. PHYSICAL EXAMINATION: VITAL SIGNS: At this time include pulse 81, respiratory rate of 20, blood pressure 159/84, temperature 98.8. GENERAL: This is a somewhat chronically ill-appearing male patient, who appears to be in no obvious distress. HEENT: Head normocephalic. Nose and throat are clear. NECK: Supple. LUNGS: Clear. HEART: Regular rhythm without murmur. ABDOMEN: Soft. Bowel sounds present. EXTREMITIES: Examination of the gluteal region demonstrates stage 3 pressure ulceration to the right buttock. There is some eschar in the center. This area has been debrided. Please see separate procedure note. EXTREMITIES: Lower extremities without any evidence of any ulceration. NEUROLOGIC: The patient is alert and oriented and appropriate. LABORATORY DATA: Includes sodium 137, potassium 4.0, chloride 98, CO2 31, BUN 23, creatinine 6.7, glucose 185. Albumin last measured in October was 1.9. White blood cell count is 7.0 with hemoglobin of 8.7. CLINICAL IMPRESSION: 1. Stage 3 pressure ulcer of the right buttock. 2. Surgical incision to the lumbar spine, mostly closed. 3. Diabetes mellitus. 4. Acute on chronic renal failure, requiring hemodialysis. 5. History of diskitis. 6. Severe spinal stenosis. RECOMMENDATIONS: At this point in time, after the debridement, we will apply TheraHoney to the buttock and then cover with a bordered foam to be changed Tuesday, Tuesday and Tuesday, bordered foam to the lumbar incision line. He will need a low air loss surface with q. 2 hour turning and positioning. He will get an aggressive nutritional support to maximize wound healing and maintain glycemic control. I appreciate being asked to see him in consultation. ��������������������������������������������� <ELECTRONICALLY SIGNED> ���������������������������������������� By: Stanley Camejo MD ��������������������������������������������� 11/21/18 0956 1817 0216 Stanley Camejo MD /nt
--- NOTE | 2018-11-21 09:56 | O ---
[facility] [place] [address] OPERATIVE REPORT Name: COLIN GARZA II Room #: 460-P [facility] IN ..#: [id number] Admission: 11/17/18 ������������������ Attend Phys: Mendel Peterson MD Discharge: ������������������ Date of : 70 Report #: [id number] THIS REPORT FOR: //name// CC: Mendel LAWSON DATE OF SERVICE: 11/20/2018 PREPROCEDURE DIAGNOSIS: Stage II pressure ulceration to the right buttock. POSTPROCEDURE DIAGNOSIS: Stage II pressure ulceration to the right buttock. PROCEDURE PERFORMED: Sharp surgical full thickness debridement of the right gluteal ulceration. Predebridement measurements 4.3 x 3.2 x 0.1 and post-debridement measurements 4.3 x 3.2 x 0.5 cm. DESCRIPTION OF PROCEDURE: After verbal consent at the patient's bedside was obtained, the patient's site was marked and a time-out was taken. Procedure was confirmed as well as the site with the patient. The area was then prepped and draped in usual sterile fashion and no anesthesia was required. A 15 blade scalpel and tissue forceps were used to remove devitalized skin and subcutaneous tissue down to the fat layer to a healthy bleeding base. The patient tolerated the procedure well. ESTIMATED BLOOD LOSS: Approximately 5 mL. Pain during procedure 4/10 postprocedure pain 0/10. The patient tolerated the procedure well. No specimens were submitted. ��������������������������������������������� <ELECTRONICALLY SIGNED> ���������������������������������������� By: Stanley Camejo MD ��������������������������������������������� 11/21/18 0956 [id number] Stanley Camejo MD /nt
--- NOTE | 2018-11-21 14:51 | NUR ---
WOUND CARE FOLLOW UP; ROUNDING WITH DR AREC AND FARNAZ STAGE SETTINGS PAINTER. THE WOUNDS LOOK MARKEDLY BETTER SINCE DEBRIDEMENT.THEREFORE WE WILL CONTINUE THERAHONEY. CONTINUE CURRENT ORDERS. DISCUSSED WITH RN
--- NOTE | 2018-11-21 15:14 | NUR ---
dp sent clinical update to [facility]
[2018-11-21 17:00] VITALS: BP 119/72
--- NOTE | 2018-11-21 17:29 | NUR ---
REFERRAL SENT TO [facility] FOR POSSIBLE ADMISSION. CM NOTIFIED LIAISON.
--- NOTE | 2018-11-21 20:36 | NUR ---
PT A&OX4, VSS, PAIN IN LOWER BACK MANAGED WITH MEDIATION. PATIENT HAD PAIN MEDICATION STRENGTH INCREASED AND STATES IT HELPS WITH HIS PAIN BETTER. PATIENT ABLE TO MOVE HIMSELF AROUND IN BED. MRI OF LUMBAR DONE TODAY. PATIENT TOLERATING DIET WELL. FALL PRECAUTION IN PLACE. DRESSING ON BACK AND RIGHT BUTTOCK C/D/I. WILL CONTINUE TO MONITOR.
[2018-11-21 21:41] VITALS: BP 141/75
--- NOTE | 2018-11-22 04:48 | NUR ---
Assumed pt care at 1900. Pt A/OX4, VSS. C/o lower back pain,medicated with Percocet/Dilaudid around the clock with partial relief reported. Pt on bedrest encouraged to turn side to side d/t wound on buttock but hesitant to. Fistula on LUE with bruit and thrill,pt reports occasionally produces some urine. No other needs voiced. Contact isolation maintained. Resting quietly at this time with no distress noted. Will continue to monitor pt.
[2018-11-22 07:50] VITALS: BP 123/72
[2018-11-22] MEDS ORDERED: FLEXERIL PO ×2 (14:52→18:12)
[2018-11-22] MEDS ORDERED: AMLODIPINE BESY10 MG PO ×2 (14:52→18:12)
[2018-11-22] MEDS ORDERED: VAN500AD IV (14:52)
[2018-11-22] MEDS ORDERED: NOVOLOG100 UNIT/1 SUBQ ×2 (14:52→18:12)
[2018-11-22 16:22] VITALS: BP 123/72
[2018-11-22 17:40] VITALS: BP 123/72
--- NOTE | 2018-11-22 17:42 | NUR ---
patient to dc home with hh care. No preference for HH agency. Sp with [facility] who service area. Faxed orders to and [place]. Faxed additional ID orders to both HH and [facility]. Transport home via [employer] van at [phone]. Discussed with patient who is in agreement with plan. [employer] cont to work to obtain wc for home.
--- NOTE | 2018-11-22 18:08 | NUR ---
CM SPOKEW ITH PT HE IS AGREEABLE WITH HIS WHEELCHAIR BEING DELIVERED TO THE HOME TOMORROW FROM [facility]. [facility] IS AWARE AND WC WILL BE DELIVERED. PT IS TO DC HOME THIS DAY [facility]IA [facility]. NO OTHER CM INTERVENTION INDICATED CASE CLOSED.
[2018-11-22] MEDS ORDERED: LYRICA 75 MG CA75 MG PO (18:09)
[2018-11-22] MEDS ORDERED: LEVEMIR SUBQ (18:10)
[2018-11-22] MEDS ORDERED: BREO ELLIPTA 11 EACH INH (18:12)
[2018-11-22] MEDS ORDERED: LEVEMIR100 UNIT/1 SUBQ (18:12)
[2018-11-22] MEDS ORDERED: RENVELA800 MG PO (18:12)
[2018-11-22] MEDS ORDERED: SENNA-TIME S T1 EACH PO (18:12)
[2018-11-22] MEDS ORDERED: OMEPRAZOLE20 M1 PO (18:12)
[2018-11-22] MEDS ORDERED: MIRALAX17 GM PO (18:12)
[2018-11-22] MEDS ORDERED: TRIPHROCAPS SOFT1 MG PO (18:12)
[2018-11-22] MEDS ORDERED: LIDOPATCH1 EACH TRANSDERM (18:12)
[2018-11-22] MEDS ORDERED: PHOSLO667 MG PO (18:12)
--- NOTE | 2018-11-22 21:15 | NUR ---
PT DISCHARGED HOME WITH HOME HEALTH. PATIENT LEFT VIA TRANSPORTER WITH MOTHER AND DAUGHTER. DRESSING CHANGED TODAY AND DC PICTURES TAKEN. PATIENT A&OX4, VSS, PAIN IN BACK TREATED WITH MEDICATION. PATIENT HAD DIALYSIS TODAY, 2L TAKEN OFF. IV REMOVED. DISCHARGE PAPERWORK AND PRESCRIPTIONS SIGNED AND UNDERSTOOD BY PATIENT. ALL BELONGINS WITH PATIENT.
--- NOTE | 2018-11-23 14:05 | NUR ---
pt called wanting to know when wc was going to be delivered today so he could set up his ride for dialysis tomorrow. cm called john and left message with liaison lori.
== END 2018-11-22 21:00 | disposition home health service (06) | DRG 570 ==
LOC: 4E 18:43 → 4W 20:31
PROVIDERS: Nurse Practitioner Family; Specialist; ADMIT Internal Medicine
PROC: 5A1D70Z Performance of Urinary Filtration, Intermittent, Less than 6 Hours Per Day (ICD-10-PCS; principal; 2018-11-20)
PROC: 0JB90ZZ Excision of Buttock Subcutaneous Tissue and Fascia, Open Approach (ICD-10-PCS; principal; 2018-11-20)
PROC: 5A1D70Z Performance of Urinary Filtration, Intermittent, Less than 6 Hours Per Day (ICD-10-PCS; 2018-11-22)
DX: L89.313 Pressure ulcer of right buttock, stage 3 (principal); E43 Unspecified severe protein-calorie malnutrition; N18.6 End stage renal disease; F11.20 Opioid dependence, uncomplicated; I13.2 Hypertensive heart and chronic kidney disease with heart failure and with stage 5 chronic kidney disease, or end stage renal disease; M46.26 Osteomyelitis of vertebra, lumbar region; E11.69 Type 2 diabetes mellitus with other specified complication; M46.40 Discitis, unspecified, site unspecified; G47.33 Obstructive sleep apnea (adult) (pediatric); G89.29 Other chronic pain; I50.9 Heart failure, unspecified; F32.9 Major depressive disorder, single episode, unspecified; F41.9 Anxiety disorder, unspecified; D63.8 Anemia in other chronic diseases classified elsewhere; Z96.651 Presence of right artificial knee joint; H54.62 Unqualified visual loss, left eye, normal vision right eye; M48.00 Spinal stenosis, site unspecified; E11.51 Type 2 diabetes mellitus with diabetic peripheral angiopathy without gangrene; E11.319 Type 2 diabetes mellitus with unspecified diabetic retinopathy without macular edema; E11.22 Type 2 diabetes mellitus with diabetic chronic kidney disease; Z99.2 Dependence on renal dialysis; Z79.82 Long term (current) use of aspirin; Z79.4 Long term (current) use of insulin; Z79.899 Other long term (current) drug therapy; Z86.14 Personal history of Methicillin resistant Staphylococcus aureus infection; Z83.3 Family history of diabetes mellitus; Z88.0 Allergy status to penicillin; Z68.32 Body mass index [BMI] 32.0-32.9, adult
CPT/HCPCS: 10047; 32100

== ENCOUNTER 2019-02-15 13:34 | Emergency (ER) | payer OTHER ==
[~2019-02-15] VITALS: Ht 185.4 cm; Wt 105.7 kg
[~2019-02-15 13:34] MED LIST changes: +LYRICA 75 MG CA75 MG PO; +NOVOLOG100 UNIT/1 SUBQ
[2019-02-15 15:38] LABS: HEMATOCRIT 22.5 % (42.0-52.0); HEMOGLOBIN 6.8 gm/dL (14.0-18.0); MCH 25.5 pg (26.0-34.0); MCHC 30.2 g/dL (28.0-37.0); MCV 84.3 fL (80.0-100.0); RBC 2.67 mil/uL (4.50-6.00); WBC 9.3 thou/uL (4.0-11.0)
[2019-02-15 15:48] LABS: CALCIUM 10.5 mg/dL (8.5-10.1); CREATININE 15.3 mg/dL (0.7-1.3)
[2019-02-15 15:54] LABS: INR 1.1; PROTIME 11.2 Seconds (9.3-11.4); TOTAL BILIRUBIN 0.4 mg/dL (<0.1-1.0); TOTAL PROTEIN 7.8 g/dL (6.4-8.2)
[2019-02-15 18:06] VITALS: BP 137/72
== END 2019-02-15 22:42 | disposition home or self-care (01) ==
LOC: ER 13:34
PROVIDERS: Emergency Medicine
DX: T83.098A Other mechanical complication of other urinary catheter, initial encounter (principal); E11.22 Type 2 diabetes mellitus with diabetic chronic kidney disease; I12.0 Hypertensive chronic kidney disease with stage 5 chronic kidney disease or end stage renal disease; N18.6 End stage renal disease; D64.9 Anemia, unspecified; G89.29 Other chronic pain; M54.5 Low back pain; E11.40 Type 2 diabetes mellitus with diabetic neuropathy, unspecified; Z99.2 Dependence on renal dialysis; Z96.651 Presence of right artificial knee joint; Z86.14 Personal history of Methicillin resistant Staphylococcus aureus infection; Z79.4 Long term (current) use of insulin; Z88.0 Allergy status to penicillin; Y81.2 Prosthetic and other implants, materials and accessory general- and plastic-surgery devices associated with adverse incidents; Y92.89 Other specified places as the place of occurrence of the external cause

== ENCOUNTER → 2019-03-08 | Outpatient (CLI) | payer OTHER | LOC: MRI 13:55 | DX: M46.26 Osteomyelitis of vertebra, lumbar region (principal); M48.061 Spinal stenosis, lumbar region without neurogenic claudication ==

== ENCOUNTER 2019-05-25 16:09 | Emergency (ER) | payer OTHER ==
[~2019-05-25] VITALS: Ht 185.4 cm; Wt 120.2 kg
[2019-05-25] MEDS ORDERED: CARVEDILOL25 MG PO (16:25)
[2019-05-25] MEDS ORDERED: ALBUTEROL2.5 MG/0.5 INH (16:26)
[2019-05-25] MEDS ORDERED: FLEXERIL PO (16:28)
[2019-05-25] MEDS ORDERED: IMDUR 30 MG TAB30 M1 PO (16:38)
[2019-05-25] MEDS ORDERED: LEVEMIR100 UNIT/1 SUBQ (16:38)
[2019-05-25] MEDS ORDERED: SERTRALINE HCL100 MG PO (16:39)
[2019-05-25] MEDS ORDERED: TRAZODONE HCL50 MG PO (16:40)
[2019-05-25] MEDS ORDERED: ALPRAZOLAM1 M1 PO (16:44)
[2019-05-25] MEDS ORDERED: FISH OIL-OMEGA1 EACH PO (16:46)
[2019-05-25] MEDS ORDERED: NORCO 5-325 TA1 EAC1 PO (17:38)
[2019-05-25 18:54] VITALS: BP 170/84
== END 2019-05-25 18:50 | disposition home or self-care (01) ==
LOC: ER 16:09
DX: M54.2 Cervicalgia (principal); M54.5 Low back pain; I12.9 Hypertensive chronic kidney disease with stage 1 through stage 4 chronic kidney disease, or unspecified chronic kidney disease; E11.22 Type 2 diabetes mellitus with diabetic chronic kidney disease; N18.9 Chronic kidney disease, unspecified; G89.29 Other chronic pain; Z90.49 Acquired absence of other specified parts of digestive tract; Z96.651 Presence of right artificial knee joint; Z79.4 Long term (current) use of insulin; Z88.0 Allergy status to penicillin

== ENCOUNTER 2020-01-14 14:23 | Observation (INO) | payer OTHER ==
[~2020-01-14] VITALS: Ht 185.4 cm; Wt 108.9 kg
[~2020-01-14 14:23] MED LIST changes: +ALBUTEROL2.5 MG/0.5 INH; +ALPRAZOLAM1 M1 PO; +FISH OIL-OMEGA1 EACH PO; +NORCO 5-325 TA1 EAC1 PO; +SERTRALINE HCL100 MG PO
[2020-01-14 14:24] VITALS: BP 152/70
[2020-01-14 15:34] LABS: ABSOLUTE NEUTROPHILS 9.8 thou/uL (1.4-8.2); BASOPHILS 0.6 % (0.0-2.0); EOSINOPHILS 1.4 % (0.0-3.0); HEMATOCRIT 25.8 % (42.0-52.0); LYMPHOCYTES 12.7 % (24.0-44.0); MCH 30.3 pg (26.0-34.0); MCHC 31.1 g/dL (28.0-37.0); MCV 97.5 fL (80.0-100.0); MONOCYTES 9.2 % (1.0-8.0); PLATELET COUNT 264 thou/uL (150-400); POLYS 76.1 % (36.0-66.0); RBC 2.65 mil/uL (4.50-6.00); RDW 16.2 % (10.5-14.5); WBC 12.9 thou/uL (4.0-11.0)
[2020-01-14 15:40] LABS: CALCIUM 9.9 mg/dL (8.5-10.1); CREATININE 21.8 mg/dL (0.7-1.3)
[2020-01-14 15:47] LABS: POTASSIUM 7.2 mmol/L (3.5-5.1)
--- NOTE | 2020-01-14 15:47 | NUR ---
CRITICAL LABS 7.2 K, INFORMED LEONORA AT THIS TIME
[2020-01-14 17:51] VITALS: BP 152/70
[2020-01-14 18:24] VITALS: BP 115/90
[2020-01-14 18:42] VITALS: BP 164/92
[2020-01-14 18:45] VITALS: BP 151/90
--- NOTE | 2020-01-14 19:57 | NUR ---
ASSUMMED PT CARE AT APPROXIMATELY 1835. PT A&O X2. VITAL SIGNS STABLE. BUGGY OPERATOR IN ROOM SETTING UP DIALYSIS. PT COMFORTABLE IN BED. PT DENIES HAVING FURTHER CONCERNS. REPORT GIVEN TO AIRPORT MANAGER RN. AIRPORT MANAGER RN STATED UNDERSTANDING AND DENIED HAVING FURTHER QUESTIONS.
[2020-01-14 21:27] LABS: BE(vivo) 2.7 mmol/L (-2 to +3); HCO3 27.9 mmol/L (22.0-26.0); PCO2 46.1 mmHg (35.0-45.0); PO2 98.1 mmHg (80.0-100.0); sO2 97.4 % (92.0-98.0)
[2020-01-14 21:41] LABS: HEMATOCRIT 27.2 % (42.0-52.0); HEMOGLOBIN 8.8 gm/dL (14.0-18.0); MCHC 32.3 g/dL (28.0-37.0); RBC 2.84 mil/uL (4.50-6.00); RDW 15.8 % (10.5-14.5); WBC 14.2 thou/uL (4.0-11.0)
[2020-01-14 21:50] LABS: ANION GAP 13 mmol/L (7-16); BUN 74 mg/dL (7-18); CALCIUM 9.7 mg/dL (8.5-10.1); CHLORIDE 99 mmol/L (98-107); CO2 25 mmol/L (21-32); GLUCOSE 148 mg/dL (74-106); SODIUM 137 mmol/L (136-145)
[2020-01-14 21:54] LABS: CREATININE 13.6 mg/dL (0.7-1.3)
[2020-01-14 22:00] LABS: SGOT 18 U/L (15-37); SGPT 13 U/L (30-65); TOTAL PROTEIN 9.5 g/dL (6.4-8.2); TROPONIN-I <0.06 ng/mL (<0.06)
[2020-01-15 00:47] VITALS: BP 160/85
--- NOTE | 2020-01-15 01:27 | NUR ---
ASSUMED CARE 1899. PT ON DIALYSIS, AND ASLEEP, RESPONSIVE TO PAINFUL STIMULI AND DRIFTS BACK TO SLEEP IMMEDIATELY. AT 2119, PT STARTED HAVING SLEEP APNEA, WITH PAUSES GREATER THAN 30s. DIALYSIS NURSES ALERTED ME. PT WAS ASSESSED AND RT NOTIFIED. PT PUT ON 2 L O2. RAPID TEAM WAS ACTIVATED. EKG NORMAL, ABG NORMAL. NARCAN 0.4 MG WAS GIVEN. PT BECAME MORE ALERT AFTER NARCAN. ORIENTED X3. DESPITE BEING ALERT, PT SEEMED A LITTLE DROWSY AND COULD NOT TAKE ANYTHING ORAL. PT WAS A HIGH RISK FOR ASPIRATION. ALL EVENING PO MEDICATIONS HELP. INSULIN LANTUS, 30 UNITS INSTEAD ON 60 UNITS GIVEN, SINCE PATIENT WAS NOT TOLERATING ANYTHING PO. ADMISSION COMPLETED. PT UNABLE TO SIGN CONSENTS AT THIS TIME. PT TO HAVE ANOTHER RUN OF DIALYSIS IN THE MORNING. WILL CONTINUE TO MONITOR AND FOLLOW POC
--- NOTE | 2020-01-15 03:44 | NUR ---
CASEWORK MANAGER called 01/14/2020 at 2125 for decreased LOC. See CASEWORK MANAGER flowsheet.
[2020-01-15 04:00] VITALS: BP 125/74
[2020-01-15 07:30] VITALS: BP 157/79
--- NOTE | 2020-01-15 09:30 | EKG ---
[facility] [place] [address] ELECTROCARDIOGRAM REPORT Name: COLIN GARZA Room #: 212- ADM [facility] M.R.#: [id number] Admission: 01/14/20 Attend Phys: Mendel Peterson MD Discharge: Date of : 70 Report #: [id number] THIS REPORT FOR: cc: BRAULIO - Brittany family physician/PCP BRAULIO - No family physician/PCP Darinel Ayala MD [facility] THIS REPORT FOR: //name// [facility] ED Test Date: 2020-01-14 Test Time: 17:14:55 Pat Name: COLIN GARZA Department: Room: 212 P Gender: M Blow Off Worker: MICHAEL : 1970 Requested By: Latisha Barone Order Number: [id number] MD: Darinel Ayala Measurements Intervals [place] Rate: 82 P: 37 WY: 147 QRS: -8 QRSD: 100 T: 77 QT: 352 QTc: 411 Interpretive Statements Sinus rhythm Normal tracing Compared to ECG 10/06/2018 09:35:51 No significant change was found Electronically Signed On 01-15-2020 9:30:18 CDT by Darinel Ayala [email or web address] <ELECTRONICALLY SIGNED> By: Darinel Ayala MD, [facility] 01/15/20 0930 1714 1714 Darinle Ayala MD, [facility] /EPI
--- NOTE | 2020-01-15 09:35 | EKG ---
[facility] [place] [address] ELECTROCARDIOGRAM REPORT Name: COLIN GARZA Room #: 212- ADM [facility] M.R.#: [id number] Admission: 01/14/20 Attend Phys: Mendel Peterson MD Discharge: Date of : 70 Report #: [id number] THIS REPORT FOR: cc: BRAULIO - No family physician/PCP FAM - No family physician/PCP Darinel Ayala MD [facility] THIS REPORT FOR: //name// [facility] Test Date: 2020-01-14 Test Time: 21:38:10 Pat Name: COLIN GARZA Department: Room: 212 Gender: M Supervisor Tower: [id number] : 1970 Requested By: Mendel Peterson Order Number: [id number] MD: Darinel Ayala Measurements Intervals [place] Rate: 96 P: 30 LA: 99 QRS: 22 QRSD: 89 T: 103 QT: 336 QTc: 425 Interpretive Statements Sinus rhythm Short LA interval RSR' in V1 or V2, right VCD Nonspecific T abnormalities, lateral leads Compared to ECG 01/14/2020 17:14:55 T-wave abnormality now present Electronically Signed On 01-15-2020 9:35:50 CDT by Darinel Ayala [email or web address] <ELECTRONICALLY SIGNED> By: Darinel Ayala MD, [facility] 01/15/20 0935 37 37 Darinel Ayala MD, [facility] /EPI
[2020-01-15 15:30] VITALS: BP 122/67
--- NOTE | 2020-01-15 15:51 | NUR ---
PT DISCHARGING TODAY TO HOME WITH FAXED REFERRAL TO [employer] SPOKE WITH ROMERO IN INTAKE SHE RECEIVED REFERRAL AND WILL ACCEPT. FAXED DC ORDERS/SUMMARY RECEIVED CONFIRMATION. [email or web address] WILL CALL PT TO SET UP VISITS.
--- NOTE | 2020-01-15 16:00 | NUR ---
ASSUMED CARE AT SHIFT CHANGE, ALERT AND ORIENTED X4 AND FORGETFUL. VSS AND SR ON THE MONITOR CALLS APPROPRIATLEY. TOLERATED DIALYSIS. PATIENT STATED THAT" HE FEELS MUCH BETTER THAN YESTERDAY". AND WILL CONTINUE WITH POC.
[2020-01-15 16:15] VITALS: BP 127/103
--- NOTE | 2020-01-15 16:53 | NUR ---
Attempted to meet with patient but he was sleeping. Sp with mother who reports she helps patient at home. She reports approx a week ago he hurt his back bad and has not been able to go to dialysis. She reports prior to that injury patient would use a wheelchair and transfer self to from . he dializes at [facility]. He has missed some appts. patient lives with 12 year old dtr. Mother reports she is assisting at home. Verified address as patient needs transport home. Discussed with mother we arranged HH care to come to home. She is agreeable. Updated RN on [facility] transport via stretcher van arranged. Verified address with mother.
[2020-01-15 20:36] VITALS: BP 107/52
[2020-01-16 00:15] VITALS: BP 103/58
--- NOTE | 2020-01-16 04:03 | NUR ---
2010: PATIENT ON CART RETURNING FROM AMBULANCE. EMS PICKED PATIENT UP AT [address] AMBULANCE TOOK BP AND STATED SYS IN 80'S, STOPPED IN ER AND PATIENT RETURNED TO ROOM 212. BP 107/52 UPON ARRIVAL. 2100 SPOKE WITH ERP TECHNICAL LEAD AND BOLUS OF 250 NS GIVEN. 0400 SLEPT MOST OF SHIFT. DENIES PRESENT COMPLAINTS. WHEN MOVING AROUND IN BED DOES COMPLAIN OF MUSCLE SPASMS. ON FLEXERIL SHCEDULED. PATIENT OREINTED X4 BUT DROWSY AND AND TIMES HARD TO AROUSE. TOLD PATIENT IF HE DID NOT AWAKEN AND SPEAK WE WOULD HOLD HS MEDS. PATIENT THEN OPENED EYES AND HELD A CONVERSATION. HE TURNED SELF IN BED. WORKING ON GOALS AND PLAN OF CARE FOR NOC. PROGRESSING TOWARDS POSSIBLE DISCHARGE HOME IN AM. CONTINUE TO ARRON ARMSTRONG.
[2020-01-16 05:15] VITALS: BP 107/55
[2020-01-16 08:00] VITALS: BP 92/56
--- NOTE | 2020-01-16 10:50 | NUR ---
ASSUMED CARE OF PT APPROX 1015 THIS A.M. CALLED DIALYSIS ANSWERING SERVICE TO SEE IF PT COULD BE PUT ON SCHEDULE. NEGATIVE. HE'LL LEAVE THIS AFTERNOON AFTER A MED ADM NEPHROLOGY IS ORDERING AND SW WILL SET UP TRANSPORT HOME FOR PT. INTRO'D SELF TO PT AND ONLY NEED AT THIS TIME WAS FOR FRESH ICE WATER. ENCOURAGED HIM TO USE CALL LIGHT FOR ANY NEEDS. SEE SEPARATE INTERVENTIONS FOR ASSESSMENTS. A.M. DAY NURSE WILL FINISH UP CHARTING/MED ADM FROM [facility]ER THIS SHIFT PRIOR TO THIS RN ASSUMING CARE
[2020-01-16 11:07] LABS: HEPATITIS B SURFACE AG Negative (Negative)
[2020-01-16 11:15] LABS: ALBUMIN 2.8 g/dL (3.4-5.0); CALCIUM 8.8 mg/dL (8.5-10.1); CREATININE 13.7 mg/dL (0.7-1.3); PHOSPHORUS 5.8 mg/dL (2.5-4.9); POTASSIUM 5.5 mmol/L (3.5-5.1)
[2020-01-16 11:30] VITALS: BP 105/56
--- NOTE | 2020-01-16 14:45 | NUR ---
Patient was to dc last evening but BP issues. Patient to dc today. DC airport planner to arrange jayla briceño from [facility], [place]. Patient alert/orientated today. he plans to call his mother to alert her of discharge. verified address.
--- NOTE | 2020-01-16 15:14 | NUR ---
PT DISCHARGING TODAY TO HOME WITH [employer] FAXED DC ORDERS/SUMMARY SPOKE WITH ROMERO IN INTAKE SHE RECEIVED ORDERS AND WILL NOTIFY PT TIME OF VISITS., PT NEEDING A RIDE HOME AND ARRANGED TRANSPORT BY [facility] TRIP #[id number] NOTIFIED UNIT OF TRANSPORT TIME.
[2020-01-16 15:18] VITALS: BP 122/67
[2020-01-16 17:40] VITALS: BP 122/67
--- NOTE | 2020-01-17 09:21 | NUR ---
PT DISCHARGED TO HOME WITH HE HAS DIALYSIS AT [facility] FAXED DC ORDERS/SUMMARY RECEIVED CONFIRMATION.
== END 2020-01-16 20:05 | disposition home or self-care (01) ==
LOC: ER 14:23 → EROBS 16:59 → 2N 16:59
PROVIDERS: Emergency Medicine; Internal Medicine Nephrology; Nurse Practitioner Family; ADMIT Internal Medicine; ATTEND Internal Medicine
DX: E87.5 Hyperkalemia (principal); I12.0 Hypertensive chronic kidney disease with stage 5 chronic kidney disease or end stage renal disease; E11.22 Type 2 diabetes mellitus with diabetic chronic kidney disease; N18.6 End stage renal disease; E66.01 Morbid (severe) obesity due to excess calories; G92 Toxic encephalopathy; G89.4 Chronic pain syndrome; M54.5 Low back pain; F11.20 Opioid dependence, uncomplicated; E11.42 Type 2 diabetes mellitus with diabetic polyneuropathy; Z91.15 Patient's noncompliance with renal dialysis; F32.9 Major depressive disorder, single episode, unspecified; Z79.82 Long term (current) use of aspirin; Z79.4 Long term (current) use of insulin; Z79.899 Other long term (current) drug therapy
CPT/HCPCS: 32100